=== PATIENT | female | born 1955 | race Caucasian/White ===

== ENCOUNTER → 2024-06-23 | Outpatient (CLI) | payer MEDICARE, SELFPAY ==
[2024-06-23 10:29] LABS: Absolute Lymphocyte Count 2.41 X10^3/uL (0.83-4.51); Absolute Neutrophil Count 6.1 X10^3/uL (2.0-7.7); Basophil% 1.1 % (0-1); Eosinophil# 0.33 X10^3/uL; Eosinophils% 3.5 % (0-5); Hematocrit 40.7 % (37-47); Hemoglobin 12.9 g/dL (12.0-15.0); Lymphocyte # 2.41 X10^3/ul (0.83-4.51); Lymphocyte % 25.4 % (19-41); Mean Corp Hgb Conc 31.7 g/dL (32-36); Mean Corpuscular Hgb 30.7 pg (27.0-32.0); Mean Corpuscular Volume 96.9 fL (81-99); Mean Platelet Vol. 10.9 fl (6.2-12.0); Monocyte# 0.54 X10^3/uL; Monocyte% 5.7 % (0-10); NRBC Flagged by Analyzer 0 % (0-5); Neutrophil % 64.1 % (47-70); Platelet Count 281 K/mm3 (150-450); RBC Distribution Width CV 12.5 % (11.6-14.6); RBC Distribution Width SD 44.5 fl (35.1-43.9); White Blood Count 9.5 K/mm3 (4.4-11.0)
[2024-06-23 10:58] LABS: PTHIN 19 pg/mL (11-61)
[2024-06-23 11:12] LABS: ALB/GLOB Ratio 1.2 RATIO (0.9-2.4); AST(SGOT) 25 U/L (<=31); Alanine Aminotransfer ALT/SGPT 18 U/L (<=34); Alkaline Phosphatase 74 U/L (35-104); Anion Gap 13 (5-15); BUN 20 mg/dL (4-19); BUN/Creat Ratio 12.5 RATIO (10-20); Calcium,Total 9.7 mg/dL (7.6-11.0); Carbon Dioxide 30.2 mmol/L (21.0-32.0); Chloride 100 mmol/L (98-108); Creatinine, Serum 1.63 mg/dL (0.70-1.20); EST Glomerular Filtration Rate 34 (>60); Globulin 3.4 g/dL (2.2-4.2); Glucose 112 mg/dL (70-99); Magnesium 1.4 mg/dL (1.5-2.2); Phosphorus 3.5 mg/dL (2.7-4.5); Potassium 4.1 mmol/L (3.3-5.1); Protein, Total 7.4 g/dL (5.9-8.4); Sodium Level 144 mmol/L (133-145); Total Bilirubin 0.48 mg/dL (0.00-1.30)
== END | disposition home or self-care (01) ==
LOC: MTLAB 09:23
PROVIDERS: PCP Family Medicine; Referring Provider Family Medicine; Visit Provider Family Medicine
DX: I12.9 Hypertensive chronic kidney disease with stage 1 through stage 4 chronic kidney disease, or unspecified chronic kidney disease (principal); N18.4 Chronic kidney disease, stage 4 (severe); J44.9 Chronic obstructive pulmonary disease, unspecified; E20.9 Hypoparathyroidism, unspecified; E03.9 Hypothyroidism, unspecified
CPT/HCPCS: 36415; 80053; 82306; 83735; 83970; 84100; 84443; 85025

== ENCOUNTER → 2025-01-02 | Outpatient (CLI) | payer MEDICARE, SELFPAY ==
--- NOTE | 2025-01-02 15:00 | RAD_ITS ---
PROCEDURE: FOOT MIN 3 VIEWS 01/02/2025 REASON FOR EXAM: PAIN TECHNIQUE: Procedure Code: RADFO Modality: DX Procedure: FOOT MIN 3 VIEWS Laterality: Right COMPARISON: None FINDINGS: Bones: No demonstrated fracture or suspicious osseous lesion. The PIP region of the 2nd toe is not visualized due to a toe ring Joints: Mild narrowing in the distal joints Soft tissues: No suspicious soft tissue swelling or foreign body Other: Calcaneal heel spurs RAD/Foot min 3 Views IMPRESSION: Mild, age consistent changes, no acute findings Reading Location: [id number]
--- NOTE | 2025-01-02 15:00 | RAD_ITS ---
PROCEDURE: KNEE 4 OR MORE VIEWS 01/02/2025 REASON FOR EXAM: PAIN TECHNIQUE: Procedure Code: RADKN Modality: DX Procedure: KNEE 4 OR MORE VIEWS Laterality: Right COMPARISON: None FINDINGS: There is no evidence of fracture or dislocation. There is moderate arthritis of the patellofemoral joint. There is mild arthritis of the medial joint space compartment of the knee. 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 There is no knee joint effusion. The periarticular soft tissues are normal. 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 Other findings as noted. Reading Location: [place] [id number]
== END | disposition home or self-care (01) ==
LOC: MTRAD 16:22
PROVIDERS: PCP Family Medicine; Referring Provider Family Medicine; Visit Provider Family Medicine
DX: S99.921A Unspecified injury of right foot, initial encounter (principal); X58.XXXA Exposure to other specified factors, initial encounter; M25.361 Other instability, right knee
CPT/HCPCS: 73564; 73630

== ENCOUNTER 2025-01-09 14:58 | Inpatient (IN) | payer MEDICARE, SELFPAY ==
[2025-01-09] VITALS (31 sets, daily range): BP systolic 132–185; BP diastolic 57–165; PULSE 50–74; RESP 12–30; TEMP 36.2–37; O2SAT 90–98; BMI 43.9; BMI 42.9
--- NOTE | 2025-01-09 14:30 | MRI_ITS ---
PROCEDURE: MRI/Brain without Contrast
--- NOTE | 2025-01-09 15:08 | CT_ITS ---
PROCEDURE: CT/STROKE CTA Head AND Neck W/Con
--- NOTE | 2025-01-09 15:08 | CT_ITS ---
PROCEDURE: CT/STROKE Brain/Head without Cont
--- NOTE | 2025-01-09 15:08 | ED.VIS.STROK ---
HPI History of Present Illness Chief Complaint: Stroke Alert [facility] Home Medications ?Medication ?Instructions ?Recorded ?Last Taken ?Type atenolol 100 mg tablet 100 mg PO DAILY 01/09/25 Unknown History atorvastatin 40 mg tablet 40 mg PO DAILY 01/09/25 Unknown History levothyroxine 137 mcg tablet 137 mcg PO DAILY 01/09/25 Unknown History lisinopril 5 mg tablet 2.5 mg PO DAILY 01/09/25 Unknown History semaglutide 1 mg/dose (4 mg/3 mL) 1.3333 mg subcut QWEEK 01/09/25 Unknown History subcutaneous pen injector (Ozempic) Allergy/AdvReac Type Severity Reaction Status Date / Time No Known Allergies Allergy Verified 01/09/25 15:01 Social History Smoking Status: Never smoker ROS ROS ED Review of Systems ROS Unobtainable: other Details: limited due to aphasia Eyes Eyes: Denies change in vision Cardiovascular Cardiovascular: Denies chest pain or palpitations Respiratory/Chest Respiratory/Chest: Denies dyspnea Musculoskeletal Musculoskeletal: Reports other Details: R knee pain due to fall 2 wks ago Neurologic Neurologic: Reports as per HPI, abnormal speech, headache(s), paresthesias RUE and RLE and weakness; Denies convulsions EXAM Physical Exam Const Vital Signs: 01/09/25 15:00 01/09/25 15:02 01/09/25 15:12 Temperature 98.6 F Temperature Source Oral Pulse Rate 57 L 50 L Respiratory Rate 16 16 Blood Pressure 160/57 H 160/57 H Blood Pressure Mean 91 91 Blood Pressure Source Blood Pressure Position Blood Pressure Location Pulse Ox 98 98 Oxygen Delivery Method Room Air Room Air Room Air 01/09/25 15:29 01/09/25 15:30 01/09/25 15:41 Temperature Temperature Source Pulse Rate 71 65 Respiratory Rate 18 17 Blood Pressure 185/165 H 160/73 H 160/73 H Blood Pressure Mean 171 102 102 Blood Pressure Source Monitor Blood Pressure Position Supine Blood Pressure Location Right Arm Pulse Ox 93 98 Oxygen Delivery Method Room Air 01/09/25 15:42 01/09/25 15:44 01/09/25 15:44 Temperature Temperature Source Pulse Rate 69 Respiratory Rate Blood Pressure 175/87 H 175/87 H 160/73 H Blood Pressure Mean 116 102 Blood Pressure Source Blood Pressure Position Blood Pressure Location Pulse Ox Oxygen Delivery Method 01/09/25 15:49 01/09/25 15:56 01/09/25 16:11 Temperature 98.6 F Temperature Source Oral Pulse Rate 65 Respiratory Rate 17 Blood Pressure 181/85 H 169/76 H Blood Pressure Mean 117 107 Blood Pressure Source Monitor Monitor Blood Pressure Position Supine Semi-Fowlers Blood Pressure Location Right Arm Right Arm Pulse Ox 96 Oxygen Delivery Method Room Air Room Air 01/09/25 16:26 Temperature Temperature Source Pulse Rate 65 Respiratory Rate 17 Blood Pressure 160/80 H Blood Pressure Mean 106 Blood Pressure Source Monitor Blood Pressure Position Semi-Fowlers Blood Pressure Location Right Arm Pulse Ox 94 Oxygen Delivery Method Room Air Positive well nourished, well developed and obese General Appearance ED: well developed and NAD Nutritional Appearance: obese HEENT Reports moist mucous membranes normocephalic and atraumatic Eyes PERRL and EOMs intact bilaterally Neck full ROM and supple Resp normal respiratory effort and clear to auscultation bilaterally Cardio regular rate, regular rhythm and no murmurs GI non-tender and non-distended Auscultation: normoactive bowel sounds Palpation: soft Back/Spine no CVA tenderness General Back: other FROM Extremity normal to inspection General Extremety ED: Negative for edema, pulses abnormal or tenderness General Extremity: Negative for edema or pulses abnormal Neuro Neuro Narrative: Expressive aphasia some dysarthria, significant weakness in the right arm none on the left, and decrease sensation throughout the right side. Sensorium / Orientation: awake and alert Skin no rashes or lesions noted and no wounds MDM MDM MDM Narrative Medical decision making narrative: Triage stroke alert was called, and I responded immediately, seeing the patient in triage. She is extremely weak in her right arm. She has sensory deficits throughout the right side, including the lower face, but no facial droop or problems with visual field, direct shock, or movements. She has significant difficulty with speech: she can produce some words but has expressive aphasia and some dysarthria. I escorted the patient to and from CT. On my interpretation, there is no hemorrhage on the plain CT. I discussed this with Radiology (Dr. Holland), who agrees there is no hemorrhage. Prior to obtaining the CT angiography with contrast I did discuss with patient and family concerning the risk of giving IV contrast in a patient with known chronic kidney disease who was not on dialysis, but I think the benefits outweigh the potential risks given her neurologic deficits and family was in agreement with that prior to doing the CTA. I then re-examined the patient, performing a more thorough NIHSS at the bedside with family. She has profound right-sided deficits, profound expressive aphasia, and right-sided hemianopia in both eyes. Her NIHSS is 16, suggesting a severe insult. As I discussed with the family, she is within the window for thrombolytics and has no contraindications, and I recommend administering them. We discussed the relatively small risk of hemorrhage (approximately 6%). The family agreed, understanding that migraine with neurologic symptoms is also in the differential. Thrombolytics were ordered with a maximum dose of 25 milligrams TNK, and TNK was administered. The CT angiography of the head and neck shows no LVO and no aneurysm. The patient met all criteria for thrombolytics and was within the window (see attached sheet indicating no contraindications). Initially, stroke neurology (Dr. Mason) thought this presentation was more likely to be a mimic. As I had discussed with the family before we decided together to proceed with thrombolytics, that was a consideration; however, in my judgment, the risk of chronic, prolonged deficits from an acute stroke was greater, and current studies support administering thrombolytics even if a mimic is possible, given a low reported risk of hemorrhage. The family understood this and was amenable to proceeding with thrombolytics, which were given. I discussed the case at length with stroke neurology and then conferred with the hospitalist for admission and further workup. We will continue to monitor the patient closely. On my reexamination about 30 minutes after thrombolytics given, she is speaking a little better and able to lift her right arm up in the air slightly although still little weak. She denies a headache and feels like she is improving a little. A postthrombolytic pressure was high 191 systolic with a heart rate of 65 for which labetalol was given after I discussed with nursing. Lab Data Attestation: I reviewed the patient's lab results. Labs: Laboratory Results - last 24 hr 01/09/25 01/09/25 15:05 15:58 WBC 12.4 H RBC 4.55 Hgb 14.2 Hct 42.7 MCV 93.8 MCH 31.2 MCHC 33.3 RDW Std Deviation 43.0 RDW Coeff of Michael 12.5 Plt Count 246 MPV 10.6 Immature Gran % (Auto) 0.200 Neut % (Auto) 66.4 Lymph % (Auto) 22.8 [place] % (Auto) 7.0 Eos % (Auto) 2.8 Baso % (Auto) 0.8 Absolute Neuts (auto) 8.2 H Absolute Lymphs (auto) 2.82 Nucleated RBC % 0 PT 13.6 INR 1.0 APTT 26.8 Sodium Cancelled 139 Potassium Cancelled 4.4 Chloride Cancelled 98 Carbon Dioxide Cancelled 33.1 H Anion Gap Cancelled 9 BUN Cancelled 24 H Creatinine Cancelled 1.36 H Estim Creat Clear Calc 53.11 Est GFR (MDRD) Non-Af Cancelled 42 L BUN/Creatinine Ratio Cancelled 17.4 Glucose Cancelled 98 Calcium Cancelled 9.7 Troponin T High Sens 18 H Radiography Diagnostic Testing: Clinical Impression(s) from Imaging Studies Brain CT 01/09/25 15:08 IMPRESSION: 1. No acute intracranial abnormality. Stroke Alert: No acute intracranial abnormality The critical findings in the findings and impression above were relayed directly by me by telephone to Karl Greene on 01/09/2025 at 3:24 pm with readback verification. Reading Location: [facility] Head/Neck CTA 01/09/25 15:08 IMPRESSION: 1. No large vessel occlusion. 2. No aneurysm or stenosis. Reading Location: [facility] Rhythm Strip Rhythm Strip: Sinus Rhythm Rate: 64 Ectopy: None EKG Initial EKG: Attestation: I personally reviewed and interpreted this EKG as follows: Interpretation: Sinus Rhythm and No Acute Injury Pattern Comments: Nml axis & intervals; nml EKG Management Discussion w/another healthcare provider: Hospitalist, School Physical Therapist (stroke neuro), Radiologist and Pharmacist (via staff) Discharge Plan Dx/Rx/DC Orders Clinical Impression: Expressive aphasia, Acute right hemiparesis, Acute headache, CKD (chronic kidney disease) Disposition Disposition: Acute Care Hospital [facility] NIHSS NIHSS 1a. Level of Consciousness: 0 - Alert; keenly responsive 1b. LOC Questions: 2 - Answers NEITHER question correctly 1c. LOC Commands: 0 - Performs BOTH tasks correctly 2. Best Gaze: 0 - Normal 3. Visual: 2 - Complete hemianopia 4. Facial Palsy: 0 - Normal symmetrical movements 5a. Left Arm: 0 - No drift; arm holds 90 (or 45) degrees for full 10 seconds 5b. Right Arm: 2 - Some effort against gravity; 6a. Left Le - Some effort against gravity; 6b. Right Le - No effort against gravity; leg falls to bed immediately 7. Limb Ataxia: 0 - Absent 8. Sensory: 2 - Severe to total sensory loss; 9. Best Language: 2 - Severe aphasia; 10. Dysarthria: 1 = Srit-fa-hfzjktru dysarthria; 11. Extinction and Inattention: 0 - No abnormality Total: 16 Stroke Questions Stroke Team Activated: Yes Reviewed Inclusion/Exclusion criteria: Yes IV Thrombolytic Administered: Yes No contraindications from thrombolytic administration: Yes Informed the patient and/or family of all associated risks, benefits, & alternatives to IV Thrombolytic Therapy. Patient and/or family voluntarily consent to the administration of IV Thrombolytic Therapy: Yes (son, [id number]) Reasons for Thrombolytic Delay Care team unable to determine eligibility: Yes -: CT imaging was delayed because patient was telling CT techs and fragmented aphasic speech that she may have a significant allergy to IVP dye. After discussing this with the patient as I went to the bedside, she states that she blacked out and lost her hair at age 17. I think the benefits of the diet at this time outweigh the risks patient was amenable to that and that was then given. After getting patient back from CT and discussing the fact that she is a thrombolytic candidate for suspected acute stroke, discussing risks and benefits and going through the thrombolytic checklist with patient and 2 family members, and consenting them for thrombolytic therapy after discussing risk, benefits, and alternatives, this was ordered and nurses were advised to give all before stroke neurology was on to evaluate. This also included discussion of possible mimics as etiology of her symptoms including migraine headache. Family understanding of this, and also understanding that we are treating worst-case scenarios, and the fact that she has profound unilateral/asymmetric deficits that could become permanent if untreated. However, there was additional delay because upon stroke neurology discussing with nursing, they held off on giving thrombolytics until I then further discussed with nursing.
[2025-01-09 15:14] LABS: Hematocrit 42.7 % (37-47); Hemoglobin 14.2 g/dL (12.0-15.0); Immature Granulocytes Count 0.030 X10^3/uL (0.0-0.0); Mean Corp Hgb Conc 33.3 g/dL (32-36); Mean Corpuscular Volume 93.8 fL (81-99); Mean Platelet Vol. 10.6 fl (6.2-12.0); NRBC Flagged by Analyzer 0 % (0-5); Platelet Count 246 K/mm3 (150-450); RBC Distribution Width CV 12.5 % (11.6-14.6); RBC Distribution Width SD 43.0 fl (35.1-43.9); Red Blood Count 4.55 M/mm3 (4.2-5.4); White Blood Count 12.4 K/mm3 (4.4-11.0)
[2025-01-09 15:28] LABS: Prothrombin Time (Protime)PT. 13.6 SECONDS (11.7-14.9)
[2025-01-09 15:42] LABS: Partial Thromboplast Time 26.8 Seconds (24.1-36.2)
[2025-01-09] MEDS: Tenecteplase 25 MG in Syringe 1 EACH 3600 MG IV (15:44)
[2025-01-09] MEDS: 0.9% Saline Lock 10 ML Syringe IV ×2 (15:44→15:45)
[2025-01-09 15:52] LABS: Troponin T High Sensitivity 18 ng/L (<=14)
--- NOTE | 2025-01-09 16:10 | ED.RN ---
1506 initial call to [facility] made by this RN 1522 Pt arrives back to ER room, [facility] called to let them know patient is back in room. 1525 Dr. Greene at bedside to discuss TNK, giving risks and benefits of TNK. Family stated they trusted what Dr. Greene would recommend. 1531 This RN called [facility] about delay in Neurologist beaming in. THis RN told [facility] stat line that Dr. Greene had ordered TNK and administration was imminent. [address] [facility] [address] Miller Beams in and begins assesment 1535 TNK delivered by pharmacy. [address] miller on doing NIH assessment. 1543 Dr Greene asked this RN if TNK was given yet, this RN had stated that it hadnt because I was waiting for [facility] dr. Dr. Greene stated do not wait, give TNK. 1544 TNK administered.
[2025-01-09] MEDS: 0.9% Normal Saline (1000mL) 1,000 ML 100 ML IV (16:24)
--- NOTE | 2025-01-09 16:29 | PCM.HP.STD ---
HPI - General General Date of Admission: 01/09/25 Date of Service: 01/09/25 Chief Complaint: Strokelike symptoms HPI Narrative CARMEN TREJO, is a 69 F who presented to [facility] ED on 01/09/2025 with strokelike symptoms. Medical history significant for class III obesity, hypertension, hyperlipidemia, type 2 diabetes mellitus and hypothyroidism. She lives at home with her son, and her son and [id number] accompanied her to the ED today. Patient presented to the ED as a stroke alert. In the ED she was noted to have extreme weakness in her right arm, sensory deficits of the right side, significant difficulty with speech and dysarthria noted. NIHSS score of [address] brain and CTA head/neck were unremarkable. ED physician discussed with family and they opted for patient to receive tenecteplase. Tenecteplase was given at 1330. Was noted to have some improvement in her symptoms shortly afterwards with improving NIH score. Hospitalist was then contacted for admission. I saw the patient at bedside in the ED, son and [id number] were present. Patient was laying back in bed and in no acute distress. She was alert and able to make appropriate eye contact with me. However she was alert only to person and not place or time. She could not tell me where she was or what the month of the year was. She did have dysarthria noted and was not answering any other questions appropriately for me. She was also looking at her son and [id number] for help with answering questions. Son notes that patient had a mechanical fall at home approximately 2 weeks ago with some right knee pain noted. Imaging at that time was negative. She apparently was recently diagnosed with new onset migraines and has been taking a triptan medication as needed for this. She was in her normal state of health this morning, was up doing the dishes and cleaning the house. Will be admitted for further management. [facility] Home Medications ?Medication ?Instructions ?Recorded ?Last Taken ?Type atenolol 100 mg tablet 100 mg PO DAILY 01/09/25 Unknown History atorvastatin 40 mg tablet 40 mg PO DAILY 01/09/25 Unknown History levothyroxine 137 mcg tablet 137 mcg PO DAILY 01/09/25 Unknown History lisinopril 5 mg tablet 2.5 mg PO DAILY 01/09/25 Unknown History semaglutide 1 mg/dose (4 mg/3 mL) 1.3333 mg subcut QWEEK 01/09/25 Unknown History subcutaneous pen injector (Ozempic) Allergy/AdvReac Type Severity Reaction Status Date / Time No Known Allergies Allergy Verified 01/09/25 15:01 Social History Smoking Status: Never smoker ROS Review of Systems ROS Unobtainable: due to mental status Vital Signs Vital Signs Vital Signs: 01/09/25 15:00 01/09/25 15:02 01/09/25 15:12 Temperature 98.6 F Temperature Source Oral Pulse Rate 57 L 50 L Respiratory Rate 16 16 Blood Pressure 160/57 H 160/57 H Blood Pressure Mean 91 91 Blood Pressure Source Blood Pressure Position Blood Pressure Location Pulse Ox 98 98 Oxygen Delivery Method Room Air Room Air Room Air 01/09/25 15:29 01/09/25 15:30 01/09/25 15:41 Temperature Temperature Source Pulse Rate 71 65 Respiratory Rate 18 17 Blood Pressure 185/165 H 160/73 H 160/73 H Blood Pressure Mean 171 102 102 Blood Pressure Source Monitor Blood Pressure Position Supine Blood Pressure Location Right Arm Pulse Ox 93 98 Oxygen Delivery Method Room Air 01/09/25 15:42 01/09/25 15:44 01/09/25 15:44 Temperature Temperature Source Pulse Rate 69 Respiratory Rate Blood Pressure 175/87 H 175/87 H 160/73 H Blood Pressure Mean 116 102 Blood Pressure Source Blood Pressure Position Blood Pressure Location Pulse Ox Oxygen Delivery Method 01/09/25 15:49 01/09/25 15:56 01/09/25 16:11 Temperature 98.6 F Temperature Source Oral Pulse Rate 65 Respiratory Rate 17 Blood Pressure 181/85 H 169/76 H Blood Pressure Mean 117 107 Blood Pressure Source Monitor Monitor Blood Pressure Position Supine Semi-Fowlers Blood Pressure Location Right Arm Right Arm Pulse Ox 96 Oxygen Delivery Method Room Air Room Air Weight Weight: 123.5 kg Body Mass Index (BMI) 43.9 Physical Exam Const alert and no apparent distress Constitutional Narrative: Elderly female, class III obesity, mildly fatigued appearing, alert and making appropriate eye contact but not answering answering any questions appropriately for me, alert and oriented to person but not place or time, otherwise sitting back fairly comfortably in bed and in no acute distress. General Appearance: cooperative and comfortable Orientation / Consciousness: confused HEENT normocephalic, head/scalp atraumatic, hearing grossly normal bilaterally, nasal mucous membranes and turbinates normal and moist oral mucous membranes Eyes PERRL, EOMs intact bilaterally and conjunctivae normal Neck full ROM Chest inspection of chest normal Resp normal respiratory effort, normal air movement, no use of accessory muscles and clear to auscultation bilaterally Cardio regular rate, regular rhythm, no murmurs and peripheral pulses 2+ throughout GI normal to inspection, nondistended, normoactive bowel sounds, soft to palpation, non-tender and non-distended Back/Spine normal ROM Extremity normal to inspection and no pedal edema Skin no rashes or lesions noted Neuro moves all extremities Neuro Narrative: Significant dysarthria noted. Alert and oriented to person only. +4/5 strength in right lower extremity. Finger-nose test abnormal. Results Lab / Micro Data 01/09/25 15:05 01/09/25 15:58 Labs: Laboratory Results - last 24 hr 01/09/25 15:05: WBC 12.4 H, RBC 4.55, Hgb 14.2, Hct 42.7, MCV 93.8, MCH 31.2, MCHC 33.3, RDW Std Deviation 43.0, RDW Coeff of Michael 12.5, Plt Count 246, MPV 10.6, Immature Gran % (Auto) 0.200, Neut % (Auto) 66.4, Lymph % (Auto) 22.8, [place] % (Auto) 7.0, Eos % (Auto) 2.8, Baso % (Auto) 0.8, Absolute Neuts (auto) 8.2 H, Absolute Lymphs (auto) 2.82, Nucleated RBC % 0, PT 13.6, INR 1.0, APTT 26.8, Sodium Cancelled, Potassium Cancelled, Chloride Cancelled, Carbon Dioxide Cancelled, Anion Gap Cancelled, BUN Cancelled, Creatinine Cancelled, Est GFR (MDRD) Non-Af Cancelled, BUN/Creatinine Ratio Cancelled, Glucose Cancelled, Calcium Cancelled, Troponin T High Sens 18 H Rhythm Strip Rhythm Strip: Sinus Rhythm Rate: 64 Ectopy: None Imaging Radiology Impression Brain CT 01/09/25 15:08 IMPRESSION: 1. No acute intracranial abnormality. Stroke Alert: No acute intracranial abnormality The critical findings in the findings and impression above were relayed directly by me by telephone to Karl Greene on 01/09/2025 at 3:24 pm with readback verification. Reading Location: [facility] Head/Neck CTA 01/09/25 15:08 IMPRESSION: 1. No large vessel occlusion. 2. No aneurysm or stenosis. Reading Location: [facility] Assessment & Plan Assessment/Plan (1) Stroke-like symptoms: PLAN: Plan Patient is a 69-year-old female who presented to [facility] ED on 01/09/2025 with strokelike symptoms. 1. Strokelike symptoms s/p TNK administration ? Admit under inpatient status to ICU. Neurology consulted. Presented with severe right-sided weakness and significant dysarthria. NIH score of 16. CT brain and CTA head/neck unremarkable. ED physician discussed with family and they proceeded with tenecteplase administration at 1330. Mild improvement in NIH score post TNK administration. Orders placed per stroke with TNK administration order set. Will be on bedrest for 24 hours and then have MRI brain without contrast done tomorrow afternoon. PT/OT/case management consulted. Lipid panel ordered. Okay to continue home atorvastatin. Home atenolol and lisinopril on hold for permissive hypertension. 2. Recent diagnosis of migraines ? Family notes recent diagnosis of migraines a few weeks ago. She is apparently been taking a triptan medication as needed for this. No prior history of migraines until few weeks ago that family notes. Unclear if this may be contributing to her picture above. Appreciate neurology recommendations. 3. CKD stage IIIb ? Creatinine 1.36 on admit, stable at baseline. Monitor daily BMP and urine output. 4. Hypertension/hyperlipidemia ? Hypertensive to the 160s and 170s systolic in the ED. Holding home lisinopril and atenolol for permissive hypertension. Continue home atorvastatin. 5. Type 2 diabetes mellitus ? Blood glucose 98 on admit. A1c 6.4%. Only on semaglutide at home for this. Will treat with sliding scale insulin with meals while inpatient. 6. Hypothyroidism with elevated TSH ? TSH 8.68 on admit. Free T4 ordered. Will continue home Synthroid at this time. Recommend repeat TSH and free T4 in 4 to 6 weeks and will defer uptitration of Synthroid to PCP. 7. Class III obesity ? BMI 42 on admit. Complicates hospital course and care. DVT prophylaxis: SCDs CODE STATUS: DNR-CCA, DNI. Discussed with patient's son and [id number] at bedside and they confirmed that patient has previously clearly expressed her wishes to be a DNR CCA, DNI code status. Expected disposition: TBD Total clinical time spent by myself addressing the patient's medical issues, reviewing all the data, and collaborating with patient's care team: 76 minutes. Charges/Coding Visit Charges Inpatient E&M: 65467 Init Hosp L3
--- NOTE | 2025-01-09 16:35 | ECHOCS_ITS ---
Reason For Study ECHO/Echo Complete W/ Contrast
[2025-01-09 16:40] LABS: Anion Gap 9 (5-15); BUN 24 mg/dL (4-19); BUN/Creat Ratio 17.4 RATIO (10-20); Calcium,Total 9.7 mg/dL (7.6-11.0); Carbon Dioxide 33.1 mmol/L (21.0-32.0); Chloride 98 mmol/L (98-108); Estimated Creatinine Clearance 53.11 ml/min (50-250); Glucose 98 mg/dL (70-99); Potassium 4.4 mmol/L (3.3-5.1)
[2025-01-09 17:30] LABS: Troponin T High Sens 2 HR 18 ng/L (<=14)
[2025-01-09 17:49] LABS: Cholesterol 120 mg/dL (<=200); Low Density Lipoprotein Calc. 43 mg/dL; Triglycerides 90 mg/dL; Very Low Density Lipoprotein 18 mg/dL (5-40); cholesterol:hdl ratio screen 2.00
--- NOTE | 2025-01-09 23:29 | CPS ---
PT SET UP ON SL MACHINE CPAP 16 WITH 2 L/M BLEED
[2025-01-10] VITALS (32 sets, daily range): BP systolic 116–174; BP diastolic 20–96; PULSE 55–71; RESP 12–20; TEMP 36.1–36.4; O2SAT 91–100; BMI 42.9; BMI 42.8
[2025-01-10] MEDS: fentaNYL 100 MCG/2 ML Ampul 25 MCG IV (00:52)
[2025-01-10] MEDS: 0.9% Normal Saline (1000mL) 1,000 ML 100 ML IV ×3 (01:44→18:53)
[2025-01-10 03:49] LABS: Hematocrit 40.1 % (37-47); Hemoglobin 13.1 g/dL (12.0-15.0); Mean Corp Hgb Conc 32.7 g/dL (32-36); Mean Corpuscular Volume 94.6 fL (81-99); Mean Platelet Vol. 10.6 fl (6.2-12.0); Platelet Count 227 K/mm3 (150-450); RBC Distribution Width CV 12.7 % (11.6-14.6); RBC Distribution Width SD 43.8 fl (35.1-43.9); Red Blood Count 4.24 M/mm3 (4.2-5.4); White Blood Count 10.8 K/mm3 (4.4-11.0)
--- NOTE | 2025-01-10 04:04 | PCM.HOSP.N ---
Hospitalist Note Patient with ongoing migraine symptoms, unchanged and stable s/p TNK. Currently NPO. Will defer migraine specific medications given her current CVA presentation. Given this is stable and unchanged will defer repeat CT head; however, if her headaches change or worsenen low threshold to obtain CT head stat given TNK. Will administer IV pain regimen judiciously.
[2025-01-10 04:08] LABS: Anion Gap 7 (5-15); BUN 22 mg/dL (4-19); BUN/Creat Ratio 14.9 RATIO (10-20); Calcium,Total 8.9 mg/dL (7.6-11.0); Carbon Dioxide 32.1 mmol/L (21.0-32.0); Chloride 101 mmol/L (98-108); Estimated Creatinine Clearance 49.15 ml/min (50-250); Glucose 114 mg/dL (70-99); Potassium 4.6 mmol/L (3.3-5.1)
--- NOTE | 2025-01-10 10:49 | CASEMGMT ---
Social Work SW?to room to meet with patient for initial transition planning/care coordination?assessment.?SW?introduced self and role at [facility].? Pt voices understanding and consents to?assessment.? Pt is A/Ox4 and answers all questions appropriately.?? Care providers, pharmacy, and demographics verified. PCP: Philip England Specialists: None Preferred Pharmacy: [facility] Insurance: [employer] Medicare Prescription Benefit:?Yes Living Will/HPOA:?Yes, pt's dgt Sandy Betts is HCPOA. Pt also states she has a living will. SW requested documents be brought in for scanning to the medical record LNOK: Son Juilano Mcdowell and daughter in law Carolina Mosher. Dgt Sandy Betts Living Arrangements: Pt moved from [place], [place] Four months ago to live with her son and daughter in law. Pt lives in a multi level home with multiple flights of stairs. Pt is independent with ADLS and she and DIL split IADL tasks. Pt's son works, however DIL does not work outside the home. Transportation:?Pt does not drive. Pt DIL provides needed transportation. DME: ?Cpap/Bipap from [employer], aresol machine. No other DME HHC/SNF: Pt has HHC previously when living in [place] after she has cancer. No previous SNF placement. PLAN: Pt is hopeful that she can return home with her son and DIL at time of discharge. SAUNDRA did update pt that SW/RNCM will follow up with pt after she has therapy to determine discharge needs. SAUNDRA educated pt to home health, outpt therapy and SNF/acute rehab. Pt agreeable to meet with SAUNDRA/RNCM tomorrow to confirm discharge plan. CHIDI Carlos
--- NOTE | 2025-01-10 11:04 | CASEMGMT ---
Social Work PHQ9 completed due to possible stroke. Pt with score of 12 indicating moderate depression. Pt states that her of 40 years 4 years ago. Pt indicates that she has been feeling down but not hopeless since this time and has had a loss of appetite and loss of interest over the last 4 years as well. Pt denies any SI. Pt is able to site that the 3 grandchildren that she now lives with helps bring some excitement to my life. Pt lived alone after her spouse for three and a half years, and recently moved in with her son and his family. Pt denies taking any medication for depression and has not spoke with a counselor. SW offered grief counseling resources and pt states she does not want to talk to a counselor as she does not want to cry anymore. SW and pt discussed working through grief and need to sometimes seek help from a counselor to get to a healthier emotional place after the loss of a loved one. SW educated pt to grief counseling options and encouraged pt to speak to PCP regarding medication if she felt she needed help with mood. SAUNDRA provided written counseling resources. CHIDI Carlos
--- NOTE | 2025-01-10 11:47 | CHAPLAIN ---
Type of Pastoral Visit _x__ Initial Visit ___ Follow-up Visit ___ On-call Visit ___ General Patient Visit ___ Spiritual Assessment ___ Family Conference ___ Bereavement ___ Rapid Response ___ Code Blue ___ Other (describe below) Pastoral Care Referral From _x__ Patient ___ Family ___ Nurse ___ Physician ___ Event Specialist ___ Water Purifier Operator ___ Other (describe below) Sacrament/Intervention _x__ Active listening ___ Anointing ___ Orthodoxy ___ Bereavement ___ Communion ___ Aline exploration ___ ___ Life review ___ Prayer ___ Reconciliation ___ Sacrament of Sick _x__ Supportive presence ___ Wedding ___ Other (describe below) Pastoral Comments patient is more concerned about finding her cell phone than she is in her health at time of the visit; assisted pt in looking for her phone; COPY HOLDER is also involved in the search; pt denies having needs or worries
--- NOTE | 2025-01-10 17:06 | PN.NEURO_ITS ---
Assessment and Plan: Neuro
--- NOTE | 2025-01-10 17:06 | NEURO.PNOTE ---
Assessment and Plan: Neuro Assessment/Plan Telestroke Attending Stroke Progress Note 69 y/o woman with h/o class III obesity, hypertension, hyperlipidemia, type 2 diabetes mellitus and hypothyroidism p/w weakness in her right arm, sensory deficits of the right side, significant difficulty with speech and dysarthria noted. NIHSS-[address] head- no acute intracranial process. CTA- no LVO. TNK administered. As per family, patient had a mechanical fall at home approximately 2 weeks ago with some right knee pain noted. Also got recently diagnosed with new onset migraines and has been taking a triptan medication as needed for this. Diagnosis: Concern for ischemic stroke Plan: Post TNK protocol. Follow up MRI brain and TTE. OT/PT/[employer]. No further use of triptans for migraine. I personally attended this patient and spent a total time of 35 minutes evaluating this patient including clinical assessment, review of chart, medical history imaging, and determining appropriate treatment and workup. Subject: Neurology Subjective No acute events overnight. She reports feeling better. EEG Results Procedure Details EEG Procedure Details: CARMEN TREJO is a 69 year old F with a past medical history of , who presents for evaluation of Electroencephalogram on DATE at TIME Objective Data Objective Data Vital Signs: Vital Signs Temp Pulse Resp BP Pulse Ox O2 Del Method O2 Flow Rate 97.4 F L 60 18 150/85 H 100 Nasal Cannula 2 01/10/25 15:15 01/10/25 15:15 01/10/25 15:15 01/10/25 15:15 01/10/25 15:15 01/10/25 15:15 01/10/25 15:15 FiO2 2 01/10/25 07:35 Oxygen Flow Rate (L/min) 2 Oxygen Delivery Method Nasal Cannula Weight: 120.5 kg Body Mass Index (BMI) 42.8 Intake & Output: Intake and Output for Last 24 Hours 01/08/25 01/09/25 01/10/25 23:59 23:59 23:59 Intake Total 1545.00 / 1545.00 Output Total 700 / 700 Balance 845.00 / 845.00 Lab / Micro Data 01/10/25 03:40 01/10/25 03:40 Labs: Laboratory Results - last 24 hr 01/09/25 15:05: Hemoglobin A1c 6.4 H 01/09/25 15:58: Triglycerides 90, Cholesterol 120, LDL Cholesterol, Calc 43, VLDL Cholesterol 18, HDL Cholesterol 60, Cholesterol/HDL Ratio 2.00, TSH 8.680 H 01/09/25 17:06: Troponin T Hi Sens 2 Hr 18 H 01/10/25 03:40: WBC 10.8, RBC 4.24, Hgb 13.1, Hct 40.1, MCV 94.6, MCH 30.9, MCHC 32.7, RDW Std Deviation 43.8, RDW Coeff of Michael 12.7, Plt Count 227, MPV 10.6, Sodium 141, Potassium 4.6, Chloride 101, Carbon Dioxide 32.1 H, Anion Gap 7, BUN 22 H, Creatinine 1.45 H, Estim Creat Clear Calc 49.15 L, Est GFR (MDRD) Non-Af 39 L, BUN/Creatinine Ratio 14.9, Glucose 114 H, Calcium 8.9 01/10/25 08:14: POC Glucose 79 01/10/25 10:56: POC Glucose 91 01/10/25 16:21: POC Glucose 80 Radiography Diagnostic Testing: Radiology Impression Echocardiogram 01/09/25 16:35 Interpretation Summary The study was technically difficult. The left ventricular ejection fraction is 65 %. Mild mitral valve annular calcification. Trivial mitral valve regurgitation. Aortic sclerosis, no stenosis. Bubble contrast suboptimal but appears negative for PFO/ASD. Ordering Physician: Odin Terrell Referring Physician: Philip England Performed By: Madelaine Joshua, RAMONA, RVT Rhythm Strip Rhythm Strip: Sinus Rhythm Rate: 64 Ectopy: None Physical Exam Narrative General: The patient appears nutritionally appropriate, well-groomed, and appears comfortable in no acute distress. Mental Status:? The patient?s mental status was normal including orientation.? Language was intact.? Cranial nerves:? Visual lance full, and extra-ocular motion was intact. Symmetric face. Motor: Normal strength in all extremities. Sensation: Intact to touch in all extremities.? Coordination:? Bilateral finger to nose was normal.? There was no dysmetria. Gait:? deferred. NIHSS NIHSS Nursing Documentation NIHSS Nursing Documentation: Thrombolytic: Vital Signs & NIHSS Start: 01/09/25 15:26 Text: Assess and document vital signs and NIHSS Status: Active within 15 minutes of tenecteplase bolus administration Freq: Q2H Protocol: Activity Type Activity Date Activity User E-sign Co-sign Detail Recorded Client Recorded Date Recorded By Document 01/10/25 13:35 DIAZ [id number] 01/10/25 15:22 DIAZ 01/10/25 13:35 Vital Signs [Temperature Protocol: VS] -Temperature (97.8 F-99.1 F) 97.2 F L -Temperature Source Temporal [Pulse] -Pulse Rate (60-100) 59 L -Pulse Location Monitor [Respirations] -Respiratory Rate (12-18) 16 -Respiratory rate source Monitor -Pulse Oximetry 99 -Oxygen Delivery Method Nasal Cannula -O2 L/MIN (L/min) 2 [Blood Pressure] -Blood Pressure (90/60-120/80) 150/75 H -Blood Pressure Mean (mm Hg) 100 -Source Monitor -Position Semi-Fowlers -Blood Pressure Location Left Forearm -Is the SBP > or = 180 No -Is the DBP > or = 105 No NIH Stroke Scale [NIHSS] A score of 0 is normal or asymptomatic . Total possible score is 42. Inpatient: RN or Physician to activate a stroke alert for onset of new stroke symptoms or with NIHSS increase >/= 3 points. Following change in neurological status, NIHSS will be performed per physician order or more frequently PRN. -1a. Level of Consciousness 0 - Alert; keenly responsive -1b. LOC Questions 0 - Answers BOTH questions correctly -1c. LOC Commands 0 - Performs BOTH tasks correctly -2. Best Gaze 0 - Normal -3. Visual 1 - Partial hemianopia -4. Facial Palsy 0 - Normal symmetrical movements -5a. Left Arm 0 - No drift; arm holds 90 ( or 45) degrees for full 10 seconds -5b. Right Arm 0 - No drift; arm holds 90 ( or 45) degrees for full 10 seconds -6a. Left Leg 0 - No drift; leg holds 30- degree position for full 5 seconds -6b. Right Leg 0 - No drift; leg holds 30- degree position for full 5 seconds -7. Limb Ataxia 0 - Absent -8. Sensory 0 - Normal; no sensory loss -9. Best Language 0 - No aphasia; normal -10. Dysarthria 1 = Mild-to- moderate dysarthria; -11. Extinction and Inattention 0 - No abnormality -Total 2 Query Text:A score of 0 is normal or asymptomatic. Total possible score is 42 . ED: Notify Physician for NIHSS increase by > / = 3 points. Inpatient: RN or Physician to activate a stroke alert for NIHSS increase of > / = 3 points. NIHSS 1a. Level of Consciousness: 0 - Alert; keenly responsive 1b. LOC Questions: 0 - Answers BOTH questions correctly 1c. LOC Commands: 0 - Performs BOTH tasks correctly 2. Best Gaze: 0 - Normal 3. Visual: 0 - No visual loss 4. Facial Palsy: 0 - Normal symmetrical movements 5a. Left Arm: 0 - No drift; arm holds 90 (or 45) degrees for full 10 seconds 5b. Right Arm: 0 - No drift; arm holds 90 (or 45) degrees for full 10 seconds 6a. Left Le - No drift; leg holds 30-degree position for full 5 seconds 6b. Right Le - No drift; leg holds 30-degree position for full 5 seconds 7. Limb Ataxia: 0 - Absent 8. Sensory: 0 - Normal; no sensory loss 9. Best Language: 0 - No aphasia; normal 10. Dysarthria: 0 - Normal 11. Extinction and Inattention: 0 - No abnormality Total: 0
--- NOTE | 2025-01-10 18:09 | PN.HOSP_ITS ---
Reason for Visit
--- NOTE | 2025-01-10 18:09 | PCM.PN.HOSP ---
Reason for Visit Chief Complaint: Strokelike symptoms Subjective Subjective Patient was seen and examined today, her MRI did not show a stroke. Patient's echocardiogram was unremarkable. I have placed the patient on an 81 mg aspirin and Lipitor, patient's LDL cholesterol is extremely low at 43. Objective Data Objective Data Vital Signs: Vital Signs Temp Pulse Resp BP Pulse Ox O2 Del Method O2 Flow Rate 97.4 F L 60 18 150/85 H 100 Nasal Cannula 2 01/10/25 15:15 01/10/25 15:15 01/10/25 15:15 01/10/25 15:15 01/10/25 15:15 01/10/25 15:15 01/10/25 15:15 FiO2 2 01/10/25 07:35 Oxygen Flow Rate (L/min) 2 Oxygen Delivery Method Nasal Cannula Weight: 120.5 kg Body Mass Index (BMI) 42.8 Intake & Output: Intake and Output for Last 24 Hours 01/08/25 01/09/25 01/10/25 23:59 23:59 23:59 Intake Total 1545.00 / 1545.00 Output Total 700 / 700 Balance 845.00 / 845.00 Lab / Micro Data 01/10/25 03:40 01/10/25 03:40 Labs: Laboratory Results - last 24 hr 01/10/25 03:40: WBC 10.8, RBC 4.24, Hgb 13.1, Hct 40.1, MCV 94.6, MCH 30.9, MCHC 32.7, RDW Std Deviation 43.8, RDW Coeff of Michael 12.7, Plt Count 227, MPV 10.6, Sodium 141, Potassium 4.6, Chloride 101, Carbon Dioxide 32.1 H, Anion Gap 7, BUN 22 H, Creatinine 1.45 H, Estim Creat Clear Calc 49.15 L, Est GFR (MDRD) Non-Af 39 L, BUN/Creatinine Ratio 14.9, Glucose 114 H, Calcium 8.9 01/10/25 08:14: POC Glucose 79 01/10/25 10:56: POC Glucose 91 01/10/25 16:21: POC Glucose 80 Radiography Diagnostic Testing: Radiology Impression Brain MRI 01/09/25 14:30 IMPRESSION: No acute intracranial abnormality. No MRI evidence of acute ischemia. No intracranial hemorrhage. Reading Location: [facility] Echocardiogram 01/09/25 16:35 Interpretation Summary The study was technically difficult. The left ventricular ejection fraction is 65 %. Mild mitral valve annular calcification. Trivial mitral valve regurgitation. Aortic sclerosis, no stenosis. Bubble contrast suboptimal but appears negative for PFO/ASD. Ordering Physician: Odin Terrell Referring Physician: Philip England Performed By: Madelaine Joshua, RAMONA, RVT Rhythm Strip Rhythm Strip: Sinus Rhythm Rate: 64 Ectopy: None Physical Exam Const alert, oriented x3 and no apparent distress Constitutional Narrative: Patient has class III obesity General Appearance: cooperative, well kempt and well developed Orientation / Consciousness: awake, oriented to person, oriented to place and oriented to time HEENT normocephalic, head/scalp atraumatic and moist oral mucous membranes Eyes PERRL, EOMs intact bilaterally and conjunctivae normal Neck supple, no JVD, thyroid normal and no carotid bruits General: trachea midline Resp normal respiratory effort, no retractions, no use of accessory muscles and clear to auscultation bilaterally Auscultation: Negative for rales, rhonchi or wheezes Cardio regular rate, regular rhythm, S1 normal heart sound, S2 normal heart sound, no murmurs, no rub and no gallops GI normal to inspection, nondistended, normoactive bowel sounds, soft to palpation, non-tender and non-distended Extremity no clubbing, cyanosis or edema Skin no rashes or lesions noted General Skin Exam: no breakdown Neuro oriented x3, CN's II-XII intact bilaterally, moves all extremities, no focal motor deficits and no sensory deficits noted Sensorium / Orientation: awake and alert Speech: speech normal Psych affect normal Assessment & Plan Assessment/Plan (1) Stroke-like symptoms: PLAN: Plan 1. Dysarthria with right-sided weakness-concerning for TIA versus complex migraine-patient will continue to see PT and OT, patient states that she has severe arthritis in her right knee and has trouble bearing weight on the right leg at times. Patient was placed on 81 mg aspirin daily as well as continuing her Lipitor 40 mg daily. #2 type 2 diabetes-blood sugars will be monitored, sliding scale insulin will be administered if indicated #3 hypothyroidism-I will order a T3 and T4 to check her levels. Patient is on Synthroid #4 essential hypertension-patient will remain on lisinopril and atenolol Total clinical time spent by myself addressing the patient's medical issues, reviewing all her data, and collaborating with patient's care team: 35-minute NIHSS NIHSS Nursing Documentation NIHSS Nursing Documentation: Thrombolytic: Vital Signs & NIHSS Start: 01/09/25 15:26 Text: Assess and document vital signs and NIHSS Status: Active within 15 minutes of tenecteplase bolus administration Freq: Q2H Protocol: Activity Type Activity Date Activity User E-sign Co-sign Detail Recorded Client Recorded Date Recorded By Document 01/10/25 13:35 [id number] 01/10/25 15:22 DIAZ 01/10/25 13:35 Vital Signs [Temperature Protocol: VS] -Temperature (97.8 F-99.1 F) 97.2 F L -Temperature Source Temporal [Pulse] -Pulse Rate (60-100) 59 L -Pulse Location Monitor [Respirations] -Respiratory Rate (12-18) 16 -Respiratory rate source Monitor -Pulse Oximetry 99 -Oxygen Delivery Method Nasal Cannula -O2 L/MIN (L/min) 2 [Blood Pressure] -Blood Pressure (90/60-120/80) 150/75 H -Blood Pressure Mean (mm Hg) 100 -Source Monitor -Position Semi-Fowlers -Blood Pressure Location Left Forearm -Is the SBP > or = 180 No -Is the DBP > or = 105 No NIH Stroke Scale [NIHSS] A score of 0 is normal or asymptomatic . Total possible score is 42. Inpatient: RN or Physician to activate a stroke alert for onset of new stroke symptoms or with NIHSS increase >/= 3 points. Following change in neurological status, NIHSS will be performed per physician order or more frequently PRN. -1a. Level of Consciousness 0 - Alert; keenly responsive -1b. LOC Questions 0 - Answers BOTH questions correctly -1c. LOC Commands 0 - Performs BOTH tasks correctly -2. Best Gaze 0 - Normal -3. Visual 1 - Partial hemianopia -4. Facial Palsy 0 - Normal symmetrical movements -5a. Left Arm 0 - No drift; arm holds 90 ( or 45) degrees for full 10 seconds -5b. Right Arm 0 - No drift; arm holds 90 ( or 45) degrees for full 10 seconds -6a. Left Leg 0 - No drift; leg holds 30- degree position for full 5 seconds -6b. Right Leg 0 - No drift; leg holds 30- degree position for full 5 seconds -7. Limb Ataxia 0 - Absent -8. Sensory 0 - Normal; no sensory loss -9. Best Language 0 - No aphasia; normal -10. Dysarthria 1 = Mild-to- moderate dysarthria; -11. Extinction and Inattention 0 - No abnormality -Total 2 Query Text:A score of 0 is normal or asymptomatic. Total possible score is 42 . ED: Notify Physician for NIHSS increase by > / = 3 points. Inpatient: RN or Physician to activate a stroke alert for NIHSS increase of > / = 3 points.
[2025-01-10] MEDS: Aspirin E.C. 81 MG Tablet PO (20:22)
[2025-01-11] VITALS (7 sets, daily range): BP systolic 115–142; BP diastolic 74–92; PULSE 58–67; RESP 16–19; TEMP 36.2–36.4; O2SAT 93–97; BMI 42.6
[2025-01-11] MEDS: 0.9% Normal Saline (1000mL) 1,000 ML 100 ML IV (04:16)
[2025-01-11 05:18] LABS: Free T3 1.2 pg/mL (2.18-3.98); T4 Total, Thyroxin 5.5 ug/dL (4.8-13.9)
[2025-01-11] MEDS: Aspirin E.C. 81 MG Tablet PO (08:29)
--- NOTE | 2025-01-11 14:21 | SP.MBSS_ITS ---
Modified Barium Swallow
--- NOTE | 2025-01-11 14:21 | ST.MBS ---
Modified Barium Swallow Patient Information Study Date: 01/11/25 Study Time: 13:40 Direct Billable Minutes: 81 Total Minutes procedure & reportin Diagnosis: Acute R hemiparesis G81.91; Stroke-like symptoms R29.90 Referring Physician: Ronnie Krishnamurthy Reason for Referral: Assess swallow function, assess risk for aspiration, and determine recommendations for least restrictive diet textures and compensatory strategies to improve swallowing safety. Medical History: Pt presented to [facility] ED 01/09/25 due to headache x4 days with extreme weakness in her right arm, sensory deficits of the right side, significant difficulty with speech and dysarthria noted on arrival. CT brain and CTA head/neck were unremarkable. Pt given tenectaplase w/ improving NIH score shortly after administration. Pt admitted to ICU for furhter management. Patient referred to per stroke protocol, and per EMR, patient failed dysphagia due to hx of thyroid surgery with patient indicating she has a holein her throat. BSE completed and recommended puree textures / thin liquids by tsp and MBSS during acute POC. Pt provided this DIRECTOR FIELD SERVICES additional hx. Pt reports hx of thyroid cancer s/p thyroidectomy and chemoradiation treatment at [facility] in [place], [place] ~25 years ago. PMH: class III obesity, hypertension, hyperlipidemia, type 2 diabetes mellitus, and hypothyroidism. Current Diet Ordered: Puree / Thin Dentition: Natural Teeth and Missing Teeth Mental Status: WNL (No apparent confusion during MBSS today. Some intermittent confusion during the acute stay.) Respiratory Status: Oxygenating on Room Air Penetration-Aspiration Scale Penetration-Aspiration Scale: OBJECTIVE ASSESSMENT OF SWALLOW FUNCTION (QUANTITATIVE ? PER TRIAL): PENETRATION / ASPIRATION SCALE (WELSH): 1 = does not enter airway 2 = enters airway/above vocal folds/ejected 3 = enters airway/above vocal folds/not ejected 4 = enters airway/contacts vocal folds/ejected 5 = enters airway/contacts vocal folds/not ejected 6 = enters airway/below vocal folds/ejected 7 = enters airway/below vocal folds/not ejected despite effort 8 = enters airway/below vocal folds/no effort VIDEOFLOROSCOPIC SCALE SCORE (WELSH): Grade I = aspiration of material that has penetrated into the laryngeal vestibule, intact cough reflex Grade II = aspiration < 10 % of the bolus, intact cough reflex Grade III = aspiration of < 10 % of the bolus, reduced cough reflex or aspiration of > 10 % of the bolus, intact cough reflex Grade IV = aspiration of > 10 % of the bolus, reduced cough reflex Penetration-Aspiration Scale Score Thin Liquid via teaspoon: Result: 1= does not enter airway Thin Liquid via teaspoon Trial 2: Result: 2= enter airway/above vocal folds/ejected Thin Liquid via large single sip: cup: Result: 2= enter airway/above vocal folds/ejected Pudding via teaspoon: Result: 1= does not enter airway Comment: Esophageal screen - Mild retention in the upper esophagus, minimal retention in the lower esophagus. 1/2 Cookie: Result: 1= does not enter airway Thin Liquid via single sip: straw: Result: 2= enter airway/above vocal folds/ejected Thin Liquid via sequential sips:straw: Result: 2= enter airway/above vocal folds/ejected Oral Phase Labial Seal: No Labial Escape Tongue Control During Bolus Hold: Posterior escape of less than half of bolus Bolus Preparation/Mastication: Slow prolonged chewing/mashing with complete recollection Bolus Transport/Lingual Motion: Delayed initiation of tongue motion Oral Residue: Residue collection on oral structures Pharyngeal Phase Initiation of Pharyngeal Swallow: Bolus head at posterior laryngeal surgace of epiglottis Soft Palate Elevation: Escape to nasopharynx Laryngeal Elevation: Comp. Superior move thyroid cart w/comp. apprx arytenoid cart-epig pet Anterior Hyoid Excursion: Partial anterior movement Epiglottic Movement: Complete inversion Laryngeal Vestibule Closure at Height of Swallow: Incomplete; narrow column of air/contrast in laryngeal vestibule Pharyngeal Stripping Wave: Present - diminished Pharyngoesophageal Segment Opening: Complete distension and complete duration; no obstruction of flow Tongue Base Retraction: Narrow column of contrast between tongue base & post. pharyngeal wall Pharyngeal Residue: Collection of residue within or on pharyngeal structures Esophageal Phase Esophageal Clearance: Esophageal retention Diagnosis/Impression Diagnosis: Mild oropharyngeal dysphagia R13.12 MBS Impressions: The oral phase is primarily marked by... -Minimal posterior loss of <1/4 thin liquid bolus to the posterior surface of the epiglottis prior to swallow onset. -Delayed tongue motion for A-P transport. -Mild oral residue of cookie, which mostly cleared w/ a second swallow. Pt reports severe xerostomia since chemoradiation treatment for thyroid cancer 25 years ago. The pharyngeal phase is primarily marked by... -Decreased pharyngeal motility d/t decreased TB retraction and pharyngeal stripping wave w/ retrograde flow of some residues in the nasopharynx during the swallow d/t decreased velopharyngeal closure. -Decreased anterior hyoid excursion; however, complete laryngeal elevation. Trace laryngeal penetration of thin liquids, which fully ejected from the laryngeal vestibule during the swallow. The esophageal phase is primarily marked by... -Mild retention in the upper esophagus w/ pudding. Recommendations Diet: Easy to Chew Textures (Patient Preference) and Thin Liquids Compensatory Strategies: Small Bites, Small Sips, Slow Rate, Multiple Swallows (Double swallows w/ bites/sips), Alternate bites/solids and sips/liquids, Sitting upright and Remain sitting upright for 30 minutes after PO intake Supervision: Distant Supervision Recommend Repeat Modified Barium Swallow: TBD Need for Skilled Speech Therapy Services: Yes Comment: -Train the patient in use of strategies to decrease risk for aspiration. -Ongoing assessment of diet tolerance of recommended textures. -Train the patient in strategies and products to manage xerostomia. -Train the patient in oropharyngeal exercise program to improve velopharyngeal closure, TB retraction, and pharyngeal stripping wave. Education Completed: 1. Described result of evaluation., 2. Pt understands evaluation & agrees with goals and treatment plan. and 7. Pt requires further education on strategies & risks. Status Active ST Patient: Active Contact Information [facility] Speech Therapy:: Debbie Sanders M.A. [facility]-DIRECTOR FIELD SERVICES Speech-Language Pathologist [facility] [address] [place] [address] [email or web address] [phone]
--- NOTE | 2025-01-11 16:16 | CASEMGMT ---
Discharge Planning A list of?SNF providers including quality and resource use data and consistent with the patient's preferred geographic region, medical needs, and insurance network was created in [employer] Guide.? This list was provided to the RN ANTELMO. Rosio Gallegos, Discharge Planning Asst
--- NOTE | 2025-01-11 16:19 | CASEMGMT ---
Therapy states to this RN CM that the pt is not safe returning home in her current condition. RN CM to the pt's room at this time. Pt states that she is agreeable to a short term SNF stay for rehab. Provided the pt with the list at this time (See DPA note). Encouraged the patient to select top three preferences for referrals. Patient states understanding. Informed the patient that care management will follow up tomorrow for top three preferences. Patient denies any further questions or concerns.
--- NOTE | 2025-01-11 18:20 | PN.HOSP_ITS ---
Reason for Visit
--- NOTE | 2025-01-11 18:20 | PCM.PN.HOSP ---
Reason for Visit Chief Complaint: Strokelike symptoms Subjective Subjective Patient was seen and examined today, I communicated with teleneurology via text today, they recommended that the patient stay on 81 mg aspirin and atorvastatin. 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 Patient was seen by speech therapy today and her diet was changed from pur?ed food. Objective Data Objective Data Vital Signs: Vital Signs Temp Pulse Resp BP Pulse Ox O2 Del Method O2 Flow Rate 97.2 F L 64 16 142/74 H 93 Room Air 95 01/11/25 08:50 01/11/25 12:00 01/11/25 08:50 01/11/25 08:50 01/11/25 08:50 01/11/25 10:00 01/11/25 17:38 FiO2 21 01/10/25 21:20 Oxygen Flow Rate (L/min) 95 Oxygen Delivery Method Room Air Weight: 119.8 kg Body Mass Index (BMI) 42.6 Intake & Output: Intake and Output for Last 24 Hours 01/09/25 01/10/25 01/11/25 23:59 23:59 23:59 Intake Total 2725.00 / 2725.00 1751.66 / 1751.66 Output Total 1000 / 1000 Balance 1725.00 / 1725.00 1751.66 / 1751.66 Lab / Micro Data 01/10/25 03:40 01/10/25 03:40 Labs: Laboratory Results - last 24 hr 01/10/25 20:34: POC Glucose 140 H 01/11/25 04:18: Thyroxine (T4) 5.5, Free T3 pg/dL 1.2 L 01/11/25 07:58: POC Glucose 78 01/11/25 12:05: POC Glucose 99 01/11/25 16:44: POC Glucose 105 Rhythm Strip Rhythm Strip: Sinus Rhythm Rate: 64 Ectopy: None Physical Exam Narrative alert, oriented x3 and no apparent distress Constitutional Narrative: Patient has class III obesity General Appearance: cooperative, well kempt and well developed Orientation / Consciousness: awake, oriented to person, oriented to place and oriented to time HEENT normocephalic, head/scalp atraumatic and moist oral mucous membranes Eyes PERRL, EOMs intact bilaterally and conjunctivae normal Neck supple, no JVD, thyroid normal and no carotid bruits General: trachea midline Resp normal respiratory effort, no retractions, no use of accessory muscles and clear to auscultation bilaterally Auscultation: Negative for rales, rhonchi or wheezes Cardio regular rate, regular rhythm, S1 normal heart sound, S2 normal heart sound, no murmurs, no rub and no gallops GI normal to inspection, nondistended, normoactive bowel sounds, soft to palpation, non-tender and non-distended Extremity no clubbing, cyanosis or edema Skin no rashes or lesions noted General Skin Exam: no breakdown Neuro oriented x3, CN's II-XII intact bilaterally, moves all extremities, no focal motor deficits and no sensory deficits noted Sensorium / Orientation: awake and alert Speech: speech normal Psych affect normal Assessment & Plan Assessment/Plan (1) Acute right hemiparesis: (2) Stroke-like symptoms: PLAN: Plan 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 Patient is on Synthroid #4 essential hypertension-patient will remain on lisinopril and atenolol Total clinical time spent by myself addressing the patient's medical issues, reviewing all her data, and collaborating with patient's care team: 35-minute Charges/Coding Visit Charges Inpatient E&M: 36565 Subs Hosp L2 NIHSS NIHSS Nursing Documentation NIHSS Nursing Documentation: Thrombolytic: Vital Signs & NIHSS Start: 01/09/25 15:26 Text: Assess and document vital signs and NIHSS Status: Complete within 15 minutes of tenecteplase bolus administration Freq: Q2H Protocol: Activity Type Activity Date Activity User E-sign Co-sign Detail Recorded Client Recorded Date Recorded By Document 01/10/25 17:00 DIAZ [id number] 01/10/25 19:46 DIAZ 01/10/25 17:00 Vital Signs [Pulse] -Pulse Rate (60-100) 64 -Pulse Location Monitor [Respirations] -Respiratory Rate (12-18) 17 -Respiratory rate source Monitor -Pulse Oximetry 95 -Oxygen Delivery Method Nasal Cannula -O2 L/MIN (L/min) 1 [Blood Pressure] -Blood Pressure (90/60-120/80) 141/96 H -Blood Pressure Mean (mm Hg) 111 -Source Monitor -Position Sitting -Blood Pressure Location Left Forearm -Is the SBP > or = 180 No -Is the DBP > or = 105 No NIH Stroke Scale [NIHSS] A score of 0 is normal or asymptomatic . Total possible score is 42. Inpatient: RN or Physician to activate a stroke alert for onset of new stroke symptoms or with NIHSS increase >/= 3 points. Following change in neurological status, NIHSS will be performed per physician order or more frequently PRN. -1a. Level of Consciousness 0 - Alert; keenly responsive -1b. LOC Questions 0 - Answers BOTH questions correctly -1c. LOC Commands 0 - Performs BOTH tasks correctly -2. Best Gaze 0 - Normal -3. Visual 1 - Partial hemianopia -4. Facial Palsy 0 - Normal symmetrical movements -5a. Left Arm 0 - No drift; arm holds 90 ( or 45) degrees for full 10 seconds -5b. Right Arm 0 - No drift; arm holds 90 ( or 45) degrees for full 10 seconds -6a. Left Leg 0 - No drift; leg holds 30- degree position for full 5 seconds -6b. Right Leg 0 - No drift; leg holds 30- degree position for full 5 seconds -7. Limb Ataxia 0 - Absent -8. Sensory 0 - Normal; no sensory loss -9. Best Language 0 - No aphasia; normal -10. Dysarthria 1 = Mild-to- moderate dysarthria; -11. Extinction and Inattention 0 - No abnormality -Total 2 Query Text:A score of 0 is normal or asymptomatic. Total possible score is 42 . ED: Notify Physician for NIHSS increase by > / = 3 points. Inpatient: RN or Physician to activate a stroke alert for NIHSS increase of > / = 3 points.
--- NOTE | 2025-01-11 19:35 | NURSING ---
01/11/251919: Blood sugar done at 1645 result 109, no SSC required per order. [employer] down and unable to document at time of testing. Patient transferred to PCU Rm. 107 via wheelchair with son present at 1815, report given to Trice WALKER prior to transfer. Zaria Kendrick RN
[2025-01-11] MEDS: 0.9% Saline Lock 10 ML Syringe IV (21:39)
[2025-01-12 01:42] VITALS: BMI 42.6
[2025-01-12 04:00] VITALS: BP 152/84; PULSE 54; RESP 16; TEMP 36.6; O2SAT 97
[2025-01-12 05:00] VITALS: BMI 42.8
--- NOTE | 2025-01-12 07:12 | PN.NEURO_ITS ---
Assessment and Plan: Neuro
--- NOTE | 2025-01-12 07:12 | NEURO.PNOTE ---
Assessment and Plan: Neuro Assessment/Plan Attending Telestroke Progress Note (Telestroke - Audio/video interface) - Seen on 01/11/2025 Diagnosis: TNK aborted stroke. Plan: ASA and statin. Recommended no further use of triptan for migraine. 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 Subject: Neurology Subjective She reports feeling back to normal EEG Results Procedure Details EEG Procedure Details: CARMEN TREJO is a 69 year old F with a past medical history of , who presents for evaluation of Electroencephalogram on DATE at TIME Objective Data Objective Data Vital Signs: Vital Signs Temp Pulse Resp BP Pulse Ox O2 Del Method O2 Flow Rate 97.8 F 54 L 16 152/84 H 97 CPAP 3 01/12/25 04:00 01/12/25 04:00 01/12/25 04:00 01/12/25 04:00 01/12/25 04:00 01/12/25 04:00 01/12/25 04:00 FiO2 21 01/11/25 23:16 Oxygen Flow Rate (L/min) 3 Oxygen Delivery Method CPAP Weight: 120.4 kg Body Mass Index (BMI) 42.8 Intake & Output: Intake and Output for Last 24 Hours 01/10/25 01/11/25 01/12/25 23:59 23:59 23:59 Intake Total 2725.00 / 2725.00 1751.66 / 1751.66 Output Total 1000 / 1000 0 / 0 Balance 1725.00 / 1725.00 1751.66 / 1751.66 0 / 0 Lab / Micro Data 01/10/25 03:40 01/10/25 03:40 Labs: Laboratory Results - last 24 hr 01/11/25 07:58: POC Glucose 78 01/11/25 12:05: POC Glucose 99 01/11/25 16:44: POC Glucose 105 01/11/25 21:50: POC Glucose 79 01/12/25 05:42: POC Glucose 74 Rhythm Strip Rhythm Strip: Sinus Rhythm Rate: 64 Ectopy: None Physical Exam Narrative General: The patient appears nutritionally appropriate, well-groomed, and appears comfortable in no acute distress. Mental Status:? The patient?s mental status was normal including orientation.? Language was intact.? Cranial nerves:? Visual lance full, and extra-ocular motion was intact. Symmetric face. Motor: Normal strength in all extremities. Sensation: Intact to touch in all extremities.? Coordination:? Bilateral finger to nose was normal.? There was no dysmetria. Gait:? deferred. NIHSS NIHSS Nursing Documentation NIHSS Nursing Documentation: Thrombolytic: Vital Signs & NIHSS Start: 01/09/25 15:26 Text: Assess and document vital signs and NIHSS Status: Complete within 15 minutes of tenecteplase bolus administration Freq: Q2H Protocol: Activity Type Activity Date Activity User E-sign Co-sign Detail Recorded Client Recorded Date Recorded By Document 01/10/25 17:00 DIAZ [id number] 01/10/25 19:46 DIAZ 01/10/25 17:00 Vital Signs [Pulse] -Pulse Rate (60-100) 64 -Pulse Location Monitor [Respirations] -Respiratory Rate (12-18) 17 -Respiratory rate source Monitor -Pulse Oximetry 95 -Oxygen Delivery Method Nasal Cannula -O2 L/MIN (L/min) 1 [Blood Pressure] -Blood Pressure (90/60-120/80) 141/96 H -Blood Pressure Mean (mm Hg) 111 -Source Monitor -Position Sitting -Blood Pressure Location Left Forearm -Is the SBP > or = 180 No -Is the DBP > or = 105 No NIH Stroke Scale [NIHSS] A score of 0 is normal or asymptomatic . Total possible score is 42. Inpatient: RN or Physician to activate a stroke alert for onset of new stroke symptoms or with NIHSS increase >/= 3 points. Following change in neurological status, NIHSS will be performed per physician order or more frequently PRN. -1a. Level of Consciousness 0 - Alert; keenly responsive -1b. LOC Questions 0 - Answers BOTH questions correctly -1c. LOC Commands 0 - Performs BOTH tasks correctly -2. Best Gaze 0 - Normal -3. Visual 1 - Partial hemianopia -4. Facial Palsy 0 - Normal symmetrical movements -5a. Left Arm 0 - No drift; arm holds 90 ( or 45) degrees for full 10 seconds -5b. Right Arm 0 - No drift; arm holds 90 ( or 45) degrees for full 10 seconds -6a. Left Leg 0 - No drift; leg holds 30- degree position for full 5 seconds -6b. Right Leg 0 - No drift; leg holds 30- degree position for full 5 seconds -7. Limb Ataxia 0 - Absent -8. Sensory 0 - Normal; no sensory loss -9. Best Language 0 - No aphasia; normal -10. Dysarthria 1 = Mild-to- moderate dysarthria; -11. Extinction and Inattention 0 - No abnormality -Total 2 Query Text:A score of 0 is normal or asymptomatic. Total possible score is 42 . ED: Notify Physician for NIHSS increase by > / = 3 points. Inpatient: RN or Physician to activate a stroke alert for NIHSS increase of > / = 3 points. NIHSS 1a. Level of Consciousness: 0 - Alert; keenly responsive 1b. LOC Questions: 0 - Answers BOTH questions correctly 1c. LOC Commands: 0 - Performs BOTH tasks correctly 2. Best Gaze: 0 - Normal 3. Visual: 0 - No visual loss 4. Facial Palsy: 0 - Normal symmetrical movements 5a. Left Arm: 0 - No drift; arm holds 90 (or 45) degrees for full 10 seconds 5b. Right Arm: 0 - No drift; arm holds 90 (or 45) degrees for full 10 seconds 6a. Left Le - No drift; leg holds 30-degree position for full 5 seconds 6b. Right Le - No drift; leg holds 30-degree position for full 5 seconds 7. Limb Ataxia: 0 - Absent 8. Sensory: 0 - Normal; no sensory loss 9. Best Language: 0 - No aphasia; normal 10. Dysarthria: 0 - Normal 11. Extinction and Inattention: 0 - No abnormality Total: 0
[2025-01-12] MEDS: Aspirin E.C. 81 MG Tablet PO (08:22)
--- NOTE | 2025-01-12 09:46 | CASEMGMT ---
Addendum entered by Amy Dudley 01/12/25 15:35: DENISE RODRIGES updated by Padmaja in TCU that precet has been obtained. DENISE RODRIGES updated patient and hospitalist and discharge plan for today. Addendum entered by Amy Dudley 01/12/25 10:46: DENISE RODRIGES updated by Padmaja in TCU that patient has been accepted but patient will need to supply Ozempic from home or hold the medications. DENISE RODRIGES in to update patient of acceptance to TCU and request for her to bring Ozempic to TCU. Patient states she can have Ozempic brought in from home. Patient had no further questions or concerns. DENISE RODRIGES updated Padmaja in TCU that patient will bring Ozempic from home. Per Padmaja she has started precert. Original Note: DENISE RODRIGES in to discuss discharge planning with patient. Patient states she reviewed SNF list and her preferences are 1. [facility] 2. [facility] 3. [facility]. Patient agreeable to have referral sent to TCU. Patient had no further questions or concerns. DENISE RODRIGES made referral to TCU intake liaision, Padmaja. CM will continue to follow this patient and plan for a safe discharge.
[2025-01-12 10:00] VITALS: BP 149/71; PULSE 67; RESP 17; TEMP 36.8; O2SAT 94
[2025-01-12 10:38] VITALS: O2SAT 92
[2025-01-12 16:00] VITALS: BP 147/84; PULSE 65; RESP 15; TEMP 36.7; O2SAT 96
--- NOTE | 2025-01-12 16:02 | PCM.TXEXTCAR ---
Diet Diet Order/Speech Therapy: INPATIENT Hospital Diet / Speech Therapy Order(s) 01/10/25 09:40 Diet: Regular - General Food consistency:: Easy to Chew Liquid Consistency:: Regular/Thin Dietary Modifications:: No Added Salt Speech Therapy Comments: slow&small bites/sips, sitting upright, multiple swallows Routine Orders/Code Status Code Status: DNRCC-A (No intubation) DC O2, CPAP, BIPAP needs Home O2 Discharge instructions: No Therapies Weight Bearing: Full weight bearing Physical Therapy: Eval and Treat Occupational Therapy: Eval and Treat Speech Therapy: Eval and Treat Problem/Diagnosis (1) Acute right hemiparesis: Status: Acute Code(s): G81.91 - Hemiplegia, unspecified affecting right dominant side (2) Stroke-like symptoms: Status: Acute Code(s): R29.90 - Unspecified symptoms and signs involving the nervous system Plan 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 81 mg aspirin daily and Lipitor 40 mg daily #2 type 2 diabetes-blood sugars will be monitored, sliding scale insulin will be administered if indicated #3 hypothyroidism-patient has a normal T4 but a low T3, repeat thyroid function test should be performed in 4 weeks #4 essential hypertension-patient will remain on lisinopril and atenolol #5 oropharyngeal dysphagia Total clinical time spent by myself addressing the patient's medical issues, reviewing all her data, and collaborating with patient's care team: 35-minute Allergies/Procedures Done in Hospital Allergies No Known Allergies Allergy (Verified 01/09/25 15:01) Procedures: 2-D Echocardiogram Type of Care/Length of Stay Estimated LOS: Convalescent Care Less Than 30 days Type of Care Needed: Skilled Rehab Potential: Good Prognosis: Good Additional Orders/Day of Discharge H&P will serve as current which was dated: 01/09/25 Day of Discharge: 01/12/25 Dietary and Speech Recommendations Dietitian Recommendations/Changes: Adjust to regular, no added salt per MANAGER VIDEO GAMES recommendations. Will monitor weight trends. Discharge Plan Admission Admit Date/Time: 01/09/25 16:30 Primary Reason for Your Visit: Aborted stroke/TIA Attending Provider: Ronnie Krishnamurthy Primary Care Provider: Philip England Consulting Providers: Odin Terrell; Bryon Zavala; Rambo Garcia; Vito Jones; Parvez Snider; Dawit Dorado; Damaris Hughes; Hi Keys; Meche Melendez; Abel Short; Patricia Silverman; Daniel Schwartz; Davian Hanson; Meka Robert; Murphy Bhatia; Jesus Mayfield; Ethan Camargo; Danette Mathias; Lazara Reeves; Ivone Palacios; Bing Meyer; Melanie Mckeon; Ronnie Garduno; Shane,Jhonny; Carmen Tipton; Michelle Malhotra; Cory Chan; Jhonny Raymundo; David Peace; Ramana Bennett; Vladislav Torres; Roshni oNyola; Yeni,Jason; Edson Ruby; Alex Baez; Danie Oliva; Jessica Villalobos; Mawarjanel,Samih; David Haro; Pancfacundo,Eliezer; Turfe,Mckinley; Mason,Shawn; Sudhir Trinh; Roman Murphy; Yocasta Blanco NP; Maria Teresa Lin; Balaji Thomas; Chas Hwang; Sri,Diana; Desiree Hutchinson; Jermaine,Cathy; Mini,Art; Tiffany,Obdulia; Elvistaaurora,Marco; Дмитрий Menjivar; Kyaw Trent; Trish Meneses; Dee Rowe; Pradeep Ramirez; Ela Hernandes; Kailee,Cory; Felicia Rider; Seth Garcia; Brian Brown; Gume Jimenez; Hallie Smith; Matilde Leone Discharge Orders/Prescriptions Prescriptions: New acetaminophen 325 mg Tablet 650 mg PO Q6H PRN PRN (Reason: Pain 1-10 Or Fever>100.7) Qty: 0 0RF aspirin 81 mg Tablet,Delayed Release (Dr/Ec) 81 mg PO BREAKFAST Qty: 0 0RF Continued atorvastatin 40 mg tablet 40 mg PO DAILY atenolol 100 mg tablet 100 mg PO DAILY lisinopril 5 mg tablet 2.5 mg PO DAILY levothyroxine 137 mcg tablet 137 mcg PO DAILY CPAP - Continuous Positive Airway Pressure([facility] INFORMATIONAL USE ONLY) Patient Comments: Patient does not know if she uses CPAP or Bipap or settings Rx Instructions: As Directed Discontinued Ozempic 1 mg/dose (4 mg/3 mL) pen injector 1.3333 mg subcut QWEEK Referrals / Follow Up: Phliip England MD [Primary Care Provider, Family Practice] Disposition Disposition (needs filled in before D/C Order can be placed): Long Term Facility
--- NOTE | 2025-01-12 16:08 | PCM.DC.SUM ---
Providers Date of Admission: 01/09/25 Date of Discharge: 01/12/25 Primary Care Physician: Philip England MD Consultations 01/09/25 15:26 Consult: Reclaimer / Pulmonary Medicine Routine Consulting Provider: [facility] Reason for Consult: stroke for thrombolytic administration EMERGENT Consult: Yes MD Notified: Yes Date Notified: 01/09/25 Time Notified: 17:26 Method of Notification: Text Comments:: Consult may be done in ED or ICU 01/09/25 17:28 Consult: Tele-Neurology Routine Consulting Provider: [facility] Reason for Consult: Acute Stroke Post Tenecteplase administration EMERGENT Consult: No MD Notified: Yes Date Notified: 01/09/25 Time Notified: 16:33 Method of Notification: ED Physician Initiated Nursing Unit Staff Notify [facility] of Tele-Neurology Consult: Yes Reason For Visit: STROKE LIKE SYMPTOMS S/P TNK Diagnosis Discharge Diagnosis (1) Acute right hemiparesis: Status: Acute Code(s): G81.91 - Hemiplegia, unspecified affecting right dominant side (2) Stroke-like symptoms: Status: Acute Code(s): R29.90 - Unspecified symptoms and signs involving the nervous system Plan 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 81 mg aspirin daily and Lipitor 40 mg daily #2 type 2 diabetes-blood sugars will be monitored, sliding scale insulin will be administered if indicated #3 hypothyroidism-patient has a normal T4 but a low T3, repeat thyroid function test should be performed in 4 weeks #4 essential hypertension-patient will remain on lisinopril and atenolol #5 oropharyngeal dysphagia Total clinical time spent by myself addressing the patient's medical issues, reviewing all her data, and collaborating with patient's care team: 35-minute Medications at Discharge Home Medications atenolol 100 mg tablet 100 mg PO DAILY Blood pressure 01/09/25 atorvastatin 40 mg tablet 40 mg PO DAILY Cholesterol 01/09/25 levothyroxine 137 mcg tablet 137 mcg PO DAILY Hypothyroid 01/09/25 lisinopril 5 mg tablet 2.5 mg PO DAILY Blood pressure 01/09/25 CPAP - Continuous Positive Airway Pressure([facility] INFORMATIONAL USE ONLY) Pulmonary Information 01/10/25 acetaminophen 325 mg tablet 650 mg (2 x 325 mg) PO Q6H PRN PRN Pain 1-10 Or Fever>100.7 #0 tabs 01/12/25 aspirin 81 mg tablet,delayed release 81 mg PO BREAKFAST Prophylaxis #0 tabs 01/12/25 Hospital Course Operations None Procedures 2-D Echocardiogram Summary of Care Provided Minutes Spent on Discharge: 31 Hospital Course: This 69-year-old white female was seen in the emergency room at [facility] as a stroke alert, she complained of weakness in her right arm and had sensory deficits throughout the right side including the lower face but no facial droop. She did not complain of any visual disturbances, she had significant difficulty with speech in the emergency room. CT of the brain was obtained which showed no evidence of hemorrhage or acute process, conversation was carried out with the family and the patient concerning administration of TNK as her NIH score was 16. The family agreed to the administration of TNK after talking with the emergency room physician who felt that it was appropriate. Patient was given TNK and was seen by stroke neurology, she was admitted to ICU and seen by PT and OT, MRI was obtained which showed no evidence of acute stroke. Patient was transferred to PCU for further care and skilled care in a [facility] facility was recommended at least for short-term. TCU was contacted and agreed to take the patient and pre-CERT was obtained. On 01/12/2025, patient was seen and examined: On examination she appeared in good health and spirits, she does not appear to be in any distress. Vital signs as documented. Skin warm and dry and without overt rashes. Neck without JVD, thyroid appears normal, trachea is midline, neck is supple. Lungs clear, normal air movement was noted. Heart exam notable for regular rhythm, normal sounds and absence of murmurs, rubs or gallops. Abdomen unremarkable and without evidence of organomegaly, masses, or abdominal aortic enlargement, bowel sounds are present in all 4 quadrants, no abdominal tenderness was noted. Extremities nonedematous, no cyanosis was noted, no clubbing was noted. Neuro: Cranial nerves II through XII are grossly intact, no focal motor deficits were noted, sensation to light touch and pinprick is intact, motor exam 5/5 throughout. Psych: Patient is alert and oriented x3, she does not appear anxious or depressed, she does not appear agitated. Patient was transferred to TCU in stable condition on 01/12/2025 Weight / BMI Weight Weight: 120.4 kg Body Mass Index (BMI) 42.8 ABG / Lab / Microbiology Data 01/10/25 03:40 01/10/25 03:40 Laboratory: Laboratory Results - last 24 hr 01/12/25 16:54: POC Glucose 71 L D/C Instructions DC O2, CPAP, BIPAP Needs Home O2 Discharge instructions: No Meaningful Use Info Meaningful Use Meaningful Use Diagnoses (Choose all that apply): None applicable Discharge Plan Admission Admit Date/Time: 01/09/25 16:30 Primary Reason for Your Visit: Aborted stroke/TIA Attending Provider: Ronnie Krishnamurthy Primary Care Provider: Philip England Consulting Providers: Odin Terrell; Bryon Zavala; Rambo Garcia; Vito Jones; Parvez Snider; Dawit Dorado; Damaris Hughes; Hi Keys; Meche Melendez; Abel Short; Patricia Silverman; Daniel Schwartz; Davian Hanson; Meka Robert; Murphy Bhatia; Jesus Mayfield; Ethan Camargo; Danette Mathias; Lazara Reeves; Ivone Palacios; Bing Meyer; Melanie Mckeon; Ronnie Garduno; Jhonny Lynn; Carmen Tipton; Michelle Malhotra; Cory Chan; Jhonny Raymundo; David Peace; Ramana Bennett; Vladislav Torres; Roshni Noyola; Jason Jaime; Tung,Edson; Alex Baez; Pj,Danie; Griselda,Jessica; Anurag,Samchastity; David Haro; Eliezer Corbett; Areli,Mckinley; Mason,Shawn; Sudhir Trinh; Roman Murphy; Yocasta Blanco GYM SUPERVISOR; Maria Teresa Lin; Balaji Thomas; Chas Hwang; Diana Fierro; Desiree Hutchinson; Cathy Dean; Art Morse; Obdulia Allen; Marco Ritter; Дмитрий Menjivar; Kyaw Trent; Trish Meneses; Dee Rowe; Pradeep Ramirez; Ela Hernandes; Cory Dugan; Felicia Rider; Seth Garcia; Brian Brown; Gume Jimenez; Hallie Smith; Matilde Leone Discharge Orders/Prescriptions Prescriptions: New acetaminophen 325 mg Tablet 650 mg PO Q6H PRN PRN (Reason: Pain 1-10 Or Fever>100.7) Qty: 0 0RF aspirin 81 mg Tablet,Delayed Release (Dr/Ec) 81 mg PO BREAKFAST Qty: 0 0RF Continued atorvastatin 40 mg tablet 40 mg PO DAILY atenolol 100 mg tablet 100 mg PO DAILY lisinopril 5 mg tablet 2.5 mg PO DAILY levothyroxine 137 mcg tablet 137 mcg PO DAILY CPAP - Continuous Positive Airway Pressure([facility] INFORMATIONAL USE ONLY) Patient Comments: Patient does not know if she uses CPAP or Bipap or settings Rx Instructions: As Directed Discontinued Ozempic 1 mg/dose (4 mg/3 mL) pen injector 1.3333 mg subcut QWEEK Referrals / Follow Up: Philip England MD [Primary Care Provider, [facility]] Disposition Disposition (needs filled in before D/C Order can be placed): [facility] Facility Charges/Coding Visit Charges Inpatient E&M: 10700 Disch Hosp >30min
[2025-01-12 17:00] VITALS: BMI 42.8
--- NOTE | 2025-01-12 17:09 | CASEMGMT ---
Social Work Per physician, pt is ready for discharge. Discharge orders faxed to TCU. RN updated that pt is ready for dc. Plan: TCU, skilled level of care CHIDI Flores
--- NOTE | 2025-01-12 18:08 | NURSING ---
report given to Yocasta in TCU, [address] per her request
== END 2025-01-12 18:33 | disposition skilled nursing facility (03) | DRG 62 ==
LOC: ED 17:04 → ICU 17:07 → PCU 01-11 18:26
PROVIDERS: Admitting Provider Hospitalist; Emergency Provider Emergency Medicine; PCP Family Medicine; Visit Provider Internal Medicine
DX: G45.9 Transient cerebral ischemic attack, unspecified (principal); G81.91 Hemiplegia, unspecified affecting right dominant side; Z68.41 Body mass index [BMI] 40.0-44.9, adult; R47.01 Aphasia; Z66 Do not resuscitate; E11.22 Type 2 diabetes mellitus with diabetic chronic kidney disease; N18.32 Chronic kidney disease, stage 3b; I12.9 Hypertensive chronic kidney disease with stage 1 through stage 4 chronic kidney disease, or unspecified chronic kidney disease; E03.9 Hypothyroidism, unspecified; M17.11 Unilateral primary osteoarthritis, right knee; E78.5 Hyperlipidemia, unspecified; G43.909 Migraine, unspecified, not intractable, without status migrainosus; R13.12 Dysphagia, oropharyngeal phase; E66.813 Obesity, class 3; R47.1 Dysarthria and anarthria; Z79.85 Long-term (current) use of injectable non-insulin antidiabetic drugs; Z79.890 Hormone replacement therapy; Z79.899 Other long term (current) drug therapy
CPT/HCPCS: 70450; 70496; 70498; 70551; 74230; 80048; 80061; 82962; 83036; 84436; 84443; 84481; 84484; 85025; 85027; 85610; 85730; 92526; 92610; 92611; 93005; 93306; 94660; 97116; 97163; 97167; 97530; 97535; 97802; 99285; J3101; Q9957; Q9967; A4216; C8929

== ENCOUNTER 2025-01-12 18:45 | Inpatient (IN) | payer MEDICARE, SELFPAY ==
--- OUTSIDE RECORDS SUMMARY | 2025-01-12 18:50 | XMS RPT_ITS | CCD ---
Author Organization [facility] Care Team Providers Care Supply Chain Engineer Name Role Phone None, Physician Primary Care Provider [phone] MD Jackie Bass Attending Provider [phone] None, Physician Primary Care Provider MD Jackie Bass Attending Provider [phone] MD Jackie Bass Primary Care Provider ROLY Regalado Attending Provider MD Zaid Blank Attending Provider DO Jesus Jim Attending Provider None, Physician Primary Care Provider MD Jackie Bass Attending Provider [phone] MD Jackie Bass Attending Provider MD Jackie Bass Primary Care Provider MD Zaid Blank Attending Provider DO Jesus Jim Attending Provider MD Jackie Bass Attending Provider [phone] ARLETH Silva Attending Provider MD Kev Bass Primary Care Provider MD Kev Bass Attending Provider [phone] MD Kev Bass Primary Care Provider ARLETH Silva Attending Provider ARLETH Barron Attending Provider MD Kev Bass Lyon Primary Care Provider MD Kev Bass Attending Provider [phone] Kali LAST, [facility] Primary Care Provider Kali LAST, Kev Strickland Attending Provider Omayra Silva APRN Attending Provider Hammad Gore MD Attending Provider [phone] Kali LAST, Kev Lyon Primary Care Provider Hammad Gore MD Attending Provider [phone] [facility] Unavailabl e Mastouri, Hammad Attending Unavailable Kali, [facility] Primary Care Unavailabl e Mastouri, Hammad Attending Unavailable Terra Mabry Attending Unavai lable Kali, [facility] Primary Care Unavailabl e Kali, Kev Strickland Attending Unavailabl e Kali, [facility] Primary Care Unavailabl e Kali, Kev Em Attending Unavailabl e Kali, [facility] Primary Care Unavailabl e Kali, [facility] Att[facility] Unavailabl e Kali, [facility] Primary Care Unavailabl e Kali, [facility] Primary Care Unavailabl e Silva Omayra IVY Attending [facility]aila ble [facility] Unav[facility] Mastouri, Hammad Attending Unavailable Philip England MD Primary Care Provider [phone] Philip England MD Attending Provider [phone] Philip England MD Referring Provider [phone] Philip England Primary Care Unavailable Philip England Attending Unavailable Philip England Referring Unavailable Sofy Sheirff Attending Unavailable Philip England Primary Care Unavailable Bryon Zavala Consulting Unavailable Odin Terrell Admitting Unavailable Rambo Garcia Consulting Unavailable Vito Jones Consulting Unavailable Parvez Snider Consulting Unavailable Dawit Dorado Consulting Unavailable Damaris Hughes Consulting Unavailable Hi Keys Consulting Unavailable Meche Melendez Consulting Unavailable Abel Short Consulting Unavailable Patricia Silverman Consulting UnavailDaniel Perez Consulting Unavailable Davian Hanson Consulting Unavailable Meka Robert Consulting Unavailable Murphy Bhatia Consulting UnavailJesus Cantrell Consulting Unavailable Ethan Camargo Consulting Unavailable Danette Mathias Consulting Unavailable Lazara Reeves Consulting Unavailable Ivone Palacios Consulting Unavailable Bing Meyer Consulting Unavailable Linda Mustafizjuan pablo Consulting UnavailRonnie Franco Consulting Unavailable Shane, Barry Consulting Unavailable Carmen Tipton Consulting Unavailable Michelle Malhotra Consulting Unavailable Cory Chan Consulting Unavailable Jhonny Raymundo Consulting Unavailable David Peace Consulting Unavailable Ramana Bennett Consulting Unavailable Vladislav Torres Consulting Unavailable Roshni Noyola Consulting Unav ailable Yeni, Jason Consulting Unavailable Edson Ruby Consulting Unavailable Alex Baez Consulting Unavailable Danie Oliva Consulting Unavailable Jessica Villalobos Consulting Unavailable Nikki Osborn Consulting Unavailable David Haro Consulting Unavailable Eliezer Corbett Consulting Unavailable Mckinley Singleton Consulting Unavailable Shawn Cuevas Consulting Unavailable Sudhir Trinh Consulting UnavailRoman Paz Consulting Unavailable Yocasta Blanco NP Consulting Unavailable Maria Teresa Lin Consulting Unavailable Odin Terrell Consulting Unavailable Odin Terrell Attending Unavailable Ronnie Krishnamurthy Attending Unavailable Balaji Thomas Consulting Unavailable Chas Hwang Consulting Unavailable Hindulalito Diana Consulting Unavailable Jasper Desiree Consulting Unavailable Jermaine Cathy Consulting Unavailable Art Morse Consulting Unavailable Obdulia Allen Consulting Unavailable Marco Ritter Consulting Unavailable Дмитрий Menjivar Consulting Unavailable Kyaw Trent Consulting Unavailable Trish Meneses Consulting Unavailable Dee Rowe Consulting Unavailable Pradeep Ramirez Consulting Unavailable Ela Hernandes Consulting Unavailable Cory Dugan Consulting Unavailable Felicia Rider Consulting UnavailSeth Arellano Consulting Unavailable Brian Brown Consulting Unavailable Gume Jimenez Consulting Unavailable Hallie Smith Consulting Unavailable Matilde Leone Consulting Unavailable Ronnie Krishnamurthy Consulting Unavailable Philip England Primary Care Unavailable Emili Lazo Attending Unavailable Philip England Referring Unavailable Philip England Primary Care Unavailable Philip England Attending Unavailable Allergies Allergy Classification Reported Allergen(s) Allergy Type Date of Onset Reaction(s) Facility (1 source) Contrast media; Translations: [ivp dye] Propensity to adverse reactions (disorder) 3 [facility] Repository Medications Current Medications Medication Drug Class(es) Dates Sig (Normalized) Sig (Original) atenolol 100 mg oral tablet (20 sources) beta-Adrenergic Luis Start: 02-23-2023 take 1 tablet by mouth once daily Atenolol 100 mg Tablet Active 100 MG PO Daily February 23, 2023 1:00am atorvastatin 40 mg oral tablet (20 sources) HMG-CoA Reductase Inhibitor Start: 02-23-2023 take 1 tablet by mouth once daily Atorvastatin 40 mg Tablet Active 40 MG PO Daily February 23, 2023 1:00am Calcium (20 sources) Phosphate Binder, Calcium Start: 02-23-2023 take 1 mg by mouth once daily Calcium 100 mg Capsule Active 1 MG PO Daily February 23, 2023 1:00am Start: 02-23-2023 take 1 mg by mouth once daily Calcium 100 mg Capsule Active 1 MG PO Daily February 23, 2023 12:00am Start: 02-23-2023 take 1 mg by mouth once daily Calcium Active 1 MG PO Daily February 23, 2023 1:00am Start: 02-23-2023 take 1 mg by mouth once daily Calcium Active 1 MG PO Daily February 23, 2023 12:00am cholecalciferol 0.125 mg oral tablet (20 sources) Vitamin D Start: 02-23-2023 take 1 tablet by mouth once daily Cholecalciferol (Vitamin D3) (Vitamin D3) 125 mcg (5,000 unit) Tablet Active 125 MCG PO Daily February 23, 2023 1:00am eszopiclone 2 mg oral tablet (20 sources) Start: 02-23-2023 take 1 tablet by mouth once Eszopiclone 2 mg tablet Active 2 MG PO One Time Only 1 February 23, 2023 1:00am Bring medication with you on the night of the sleep study. levothyroxine sodium 0.15 mg oral tablet (20 sources) l-Thyroxine Start: 02-23-2023 take 1 tablet by mouth once daily Levothyroxine 150 mcg Tablet Active 150 MCG PO Daily February 23, 2023 1:00am lisinopril 5 mg oral tablet (20 sources) Angiotensin Converting Enzyme Inhibitor Start: 02-23-2023 take 1 tablet by mouth once daily Lisinopril 5 mg Tablet Active 5 MG PO Daily February 23, 2023 1:00am magnesium oxide 400 mg oral tablet (20 sources) Start: 02-23-2023 take 1 tablet by mouth twice daily Magnesium Oxide 400 mg (241.3 mg magnesium) Tablet Active 400 MG PO Twice Daily February 23, 2023 1:00am spironolactone 50 mg oral tablet (20 sources) Aldosterone Antagonist Start: 02-23-2023 take 1 tablet by mouth twice daily Spironolactone 50 mg Tablet Active 50 MG PO Twice Daily February 23, 2023 1:00am Problems Problem Classification Problem Date Documented Da te Episodic/Chronic Chronic obstructive pulmonary disease and bronchiectasis (20 sources) Chronic obstructive lung disease; Translations: [Chronic obstructive pulmonary disease, unspecified] 02-23-2023 Chronic Diseases of mouth; excluding dental (20 sources) Xerostomia; Translations: [Dry mouth, unspecified] 02-23-2023 Episodic Headache; including migraine (20 sources) Morning headache; Translations: [Morning headache] 02-23-2023 Episodic Hypertension with complications and secondary hypertension (1 source) Hypertensive chronic kidney disease with stage 1 through stage 4 chronic kidney disease, or unspecified chronic kidney disease; Translations: [Hypertensive chronic kidney disease with stage 1 through stage 4 chronic kidney disease, or unspecified chronic kidney disease] Onset: 06-28-2024 Chronic Miscellaneous mental health disorders (20 sources) Bruxism (teeth grinding); Translations: [Other somatoform disorders] 02-23-2023 Chronic Other connective tissue disease (20 sources) Muscle pain; Translations: [Myalgia, unspecified site] 02-23-2023 Episodic Other connective tissue disease (5 sources) Myalgia, unspecified site; Translations: [Myalgia and myositis, unspecified] 02-23-2023 Episodic Other connective tissue disease (1 source) Unspecified symptoms and signs involving the nervous system; Translations: [Unspecified symptoms and signs involving the nervous system] Onset: 01-12-2025 Episodic Other hereditary and degenerative nervous system conditions (20 sources) Restless legs; Translations: [Restless legs syndrome] 02-23-2023 Chronic Other hereditary and degenerative nervous system conditions (5 sources) Restless legs syndrome; Translations: [Restless legs syndrome (RLS)] 02-23-2023 Chronic Other injuries and conditions due to external causes (1 source) Unspecified injury of right foot, initial encounter; Translations: [Unspecified injury of right foot, initial encounter] Onset: 01-09-2025 Episodic Other lower respiratory disease (20 sources) Snoring; Translations: [Snoring] 02-23-2023 Episodic Other lower respiratory disease (5 sources) Snoring; Translations: [Other respiratory abnormalities] 02-23-2023 Episodic Other nutritional; endocrine; and metabolic disorders (20 sources) Body mass index 40+ - severely obese; Translations: [Morbid (severe) obesity due to excess calories] 02-23-2023 Chronic Other nutritional; endocrine; and metabolic disorders (5 sources) Morbid (severe) obesity due to excess calories; Translations: [Morbid obesity] 02-23-2023 Chronic Other skin disorders (20 sources) Night sweats; Translations: [Generalized hyperhidrosis] 02-23-2023 Episodic Other skin disorders (5 sources) Generalized hyperhidrosis; Translations: [Generalized hyperhidrosis] 02-23-2023 Episodic Paralysis (1 source) Hemiplegia, unspecified affecting right dominant side; Translations: [Hemiplegia, unspecified affecting right dominant side] Onset: 01-12-2025 Chronic Residual codes; unclassified (20 sources) Obstructive sleep apnea syndrome; Translations: [Obstructive sleep apnea (adult) (pediatric)] 02-23-2023 Chronic Residual codes; unclassified (20 sources) Sleeptalking; Translations: [Other sleep disorders] 02-23-2023 Chronic Residual codes; unclassified (5 sources) Obstructive sleep apnea (adult) (pediatric); Translations: [Obstructive sleep apnea (adult)(pediatric)] 02-23-2023 Chronic Residual codes; unclassified (5 sources) Other sleep disorders; Translations: [Other specific disorders of sleep of nonorganic origin] 02-23-2023 Chronic Residual codes; unclassified (20 sources) Restless sleep; Translations: [Sleep disorder, unspecified] 02-23-2023 Episodic Residual codes; unclassified (5 sources) Sleep disorder, unspecified; Translations: [Sleep disturbance, unspecified] 02-23-2023 Episodic Screening and history of mental health and substance abuse codes (20 sources) H/O: Disorder; Translations: [Personal history of other mental and behavioral disorders] 02-23-2023 Episodic Thyroid disorders (20 sources) Hypothyroidism; Translations: [Hypothyroidism, unspecified] 02-23-2023 Chronic Results Test Name Value Interpretation Reference Range Facility Bedside Glucoseon 01-12-2025 F[facility]ERSTICK GLU 71 mg/dL Low 74-106 [facility] Comment on above: Result Comment: DOM GEMENT OF PATIENT CARE PER NURSING PROTOCOL Performed By: #### L 501.2300, L500.4050, L501.9520, L501.5200, L509.1000, L100.0100 #### [facility] [address] [place], [address] FINGERSTICK GLU 171 mg/dL High 74-106 [facility] Comment on above: Result Comment: DOM GEMENT OF PATIENT CARE PER NURSING PROTOCOL Performed By: #### L 501.2300, L500.4050, L501.9520, L501.5200, L509.1000, L100.0100 #### [facility] [address] [place], [address] FINGERSTICK GLU 74 mg/dL Normal 74-106 [facility] Comment on above: Result Comment: DOM GEMENT OF PATIENT CARE PER NURSING PROTOCOL Performed By: #### L 501.2300, L500.4050, L501.9520, L501.5200, L509.1000, L100.0100 #### [facility] [address] [place], [address] Bedside Glucoseon 01-11-2025 FINGERSTICK GLU 79 mg/dL Normal 74-106 [facility] Comment on above: Result Comment: DOM GEMENT OF PATIENT CARE PER NURSING PROTOCOL Performed By: #### L 501.2300, L500.4050, L501.9520, L501.5200, L509.1000, L100.0100 #### [facility] [address] [place], [address] FINGERSTICK GLU 105 mg/dL Normal 74-106 [facility] Comment on above: Result Comment: DOM GEMENT OF PATIENT CARE PER NURSING PROTOCOL Performed By: #### L 501.2300, L500.4050, L501.9520, L501.5200, L509.1000, L100.0100 #### [facility] [address] [place], [address] FINGERSTICK GLU 99 mg/dL Normal 74-106 [facility] Comment on above: Result Comment: DOM GEMENT OF PATIENT CARE PER NURSING PROTOCOL Performed By: #### L 501.080 #### [facility] [address] [place], [address] FINGERSTICK GLU 78 mg/dL Normal 74-106 [facility] Comment on above: Result Comment: DOM GEMENT OF PATIENT CARE PER NURSING PROTOCOL Performed By: #### L 501.080 #### [facility] [address] [place], [address] Free T3on 01-11-2025 Free T3 [Mass/Vol] 1.2 pg/mL Low 2.18-3.98 [facility] Comment on above: Performed By: #### L 501.2300, L500.4050, L501.9520, L501.5200, L509.1000, L100.0100 #### [facility] [address] [place], [address] Modified Barium Swallow Stud yon 01-11-2025 Modified Barium Swallow Study [facility] Speech Pathology [address] [place] [address] Modified Barium Swallow Study MR#: [id number] Acct: [id number] Name: CARMEN TREJO #: [id number] : 1955 69 From: Debbie Sanders M.A., [facility]-RADIOSONDE SPECIALIST Modified Barium Swallow Patient Information Study Date: 01/11/25 Study Time: 13:40 Direct Billable Minutes: 81 Total Minutes procedure reportin Diagnosis: Acute R hemiparesis G81.91; Stroke-like symptoms R29.90 Referring Physician: Ronnie Krishnamurthy Reason for Referral: Assess swallow function, assess risk for aspiration, and determine recommendations for least restrictive diet textures and compensatory strategies to improve swallowing safety. Medical History: Pt presented to [facility] ED 01/09/25 due to headache x4 days with extreme weakness in her right arm, sensory deficits of the right side, significant difficulty with speech and dysarthria noted on arrival. CT brain and CTA head/neck were unremarkable. Pt given tenectaplase w/ improving NIH score shortly after administration. Pt admitted to ICU for furhter management. Patient referred to per stroke protocol, and per EMR, patient failed dysphagia due to hx of thyroid surgery with patient indicating she has a "hole"in her throat. BSE completed and recommended puree textures / thin liquids by tsp and MBSS during acute POC. Pt provided this RADIOSONDE SPECIALIST additional hx. Pt reports hx of thyroid cancer s/p thyroidectomy and chemoradiation treatment at [facility] in [place], [place] 25 years ago. PMH: class III obesity, hypertension, hyperlipidemia, type 2 diabetes mellitus, and hypothyroidism. Current Diet Ordered: Puree / Thin Dentition: Natural Teeth and Missing Teeth Mental Status: WNL (No apparent confusion during MBSS today. Some intermittent confusion during the acute stay.) Respiratory Status: Oxygenating on Room Air Penetration-Aspirat ion Scale Penetration-Aspirat ion Scale: OBJECTIVE ASSESSMENT OF SWALLOW FUNCTION (QUANTITATIVE ??? PER TRIAL): PENETRATION / ASPIRATION SCALE (WELSH): 1 = does not enter airway 2 = enters airway/above vocal folds/ejected 3 = enters airway/above vocal folds/not ejected 4 = enters airway/contacts vocal folds/ejected 5 = enters airway/contacts vocal folds/not ejected 6 = enters airway/below vocal folds/ejected 7 = enters airway/below vocal folds/not ejected despite effort 8 = enters airway/below vocal folds/no effort VIDEOFLOROSCOPIC SCALE SCORE (WELSH): Grade I = aspiration of material that has penetrated into the laryngeal vestibule, intact cough reflex Grade II = aspiration < 10 % of the bolus, intact cough reflex Grade III = aspiration of < 10 % of the bolus, reduced cough reflex or aspiration of > 10 % of the bolus, intact cough reflex Grade IV = aspiration of > 10 % of the bolus, reduced cough reflex Penetration-Aspirat ion Scale Score Thin Liquid via teaspoon: Result: 1= does not enter airway Thin Liquid via teaspoon Trial 2: Result: 2= enter airway/above vocal folds/ejected Thin Liquid via large single sip: cup: Result: 2= enter airway/above vocal folds/ejected Pudding via teaspoon: Result: 1= does not enter airway Comment: Esophageal screen - Mild retention in the upper esophagus, minimal retention in the lower esophagus. 1/2 Cookie: Result: 1= does not enter airway Thin Liquid via single sip: straw: Result: 2= enter airway/above vocal folds/ejected Thin Liquid via sequential sips:straw: Result: 2= enter airway/above vocal folds/ejected Oral Phase Labial Seal: No Labial Escape Tongue Control During Bolus Hold: Posterior escape of less than half of bolus Bolus Preparation/Mastica tion: Slow prolonged chewing/mashing with complete recollection Bolus Transport/Lingual Motion: Delayed initiation of tongue motion Oral Residue: Residue collection on oral structures Pharyngeal Phase Initiation of Pharyngeal Swallow: Bolus head at posterior laryngeal surgace of epiglottis Soft Palate Elevation: Escape to nasopharynx Laryngeal Elevation: Comp. Superior move thyroid cart w/comp. apprx arytenoid cart-epig pet Anterior Hyoid Excursion: Partial anterior movement Epiglottic Movement: Complete inversion Laryngeal Vestibule Closure at Height of Swallow: Incomplete; narrow column of air/contrast in laryngeal vestibule Pharyngeal Stripping Wave: Present - diminished Pharyngoesophageal Segment Opening: Complete distension and complete duration; no obstruction of flow Tongue Base Retraction: Narrow column of contrast between tongue base post. pharyngeal wall Pharyngeal Residue: Collection of residue within or on pharyngeal structures Esophageal Phase Esophageal Clearance: Esophageal retention Diagnosis/Impressio n Diagnosis: Mild oropharyngeal dysphagia R13.12 MBS Impressions: The oral phase is primarily marked by... -Minimal posterior loss of <1/4 thin liquid bolus to the posterior surface of the epiglottis prior to sw (more content not included)... Normal [facility] T4 Total, Thyroxinon T4 [Mass/Vol] 5.5 ug/dL Normal 4.8-13.9 [facility] Comment on above: Performed By: #### L 501.2300, L500.4050, L501.9520, L501.5200, L509.1000, L100.0100 #### [facility] [address] [place], [address] Basic Metabolic Profile (BMP )on 01-10-2025 BUN/CRE 14.9 RATIO Normal 01-01 [facility] Comment on above: Performed By: #### L 501.2300, L500.4050, L501.9520, L501.5200, L509.1000, L100.0100 #### [facility] [address] [place], [address] Calcium [Mass/Vol] 8.9 mg/dL Normal 7.6-11.0 [facility] Comment on above: Performed By: #### L 501.2300, L500.4050, L501.9520, L501.5200, L509.1000, L100.0100 #### [facility] [address] [place], [address] Chloride [Moles/Vol] 101 mmol/L Normal 98-[address] [facility] Comment on above: Performed By: #### L 501.2300, L500.4050, L501.9520, L501.5200, L509.1000, L100.0100 #### [facility] [address] [place], [address] CO2 [Moles/Vol] 32.1 mmol/L High 21.0-32.0 [facility] Comment on above: Performed By: #### L 501.2300, L500.4050, L501.9520, L501.5200, L509.1000, L100.0100 #### [facility] [address] [place], [address] Creatinine [Mass/Vol] 1.45 mg/dL High 0.70-1.20 [facility] Comment on above: Performed By: #### L 501.2300, L500.4050, L501.9520, L501.5200, L509.1000, L100.0100 #### [facility] [address] [place], [address] ECRCL 49.15 ml/min Low 50-250 [facility] Comment on above: Performed By: #### L 501.2300, L500.4050, L501.9520, L501.5200, L509.1000, L100.0100 #### [facility] [address] [place], [address] GAP 7 Normal 5-15 [facility] Comment on above: Performed By: #### L 501.2300, L500.4050, L501.9520, L501.5200, L509.1000, L100.0100 #### [facility] [address] [place], [address] GFR/1.73 sq M.predicted among non-blacks MDRD (S/P/Bld) [Vol rate/Area] 39 mL/min/{1.73_m2} Low >60 [facility] Comment on above: Result Comment: mL/m in/1.73m2 CKD-EPI Creatinine Equation (2020) Performed By: #### L 501.2300, L500.4050, L501.9520, L501.5200, L509.1000, L100.0100 #### [facility] [address] [place], [address] Glucose [Mass/Vol] 114 mg/dL High 70-99 [facility] Comment on above: Performed By: #### L 501.2300, L500.4050, L501.9520, L501.5200, L509.1000, L100.0100 #### [facility] [address] [place], [address] Potassium [Moles/Vol] 4.6 mmol/L Normal 3.3-5.1 [facility] Comment on above: Result Comment: Hemo lysis present, Results??could be affected. ?? Performed By: #### L 501.2300, L500.4050, L501.9520, L501.5200, L509.1000, L100.0100 #### [facility] [address] [place], [address] Sodium [Moles/Vol] 141 mmol/L Normal 133-145 [facility] Comment on above: Performed By: #### L 501.2300, L500.4050, L501.9520, L501.5200, L509.1000, L100.0100 #### [facility] [address] [place], [address] Urea nitrogen [Mass/Vol] 22 mg/dL High 4-19 [facility] Comment on above: Performed By: #### L 501.2300, L500.4050, L501.9520, L501.5200, L509.1000, L100.0100 #### [facility] [address] [place], [address] Bedside Glucoseon 01-10-2025 FINGERSTICK GLU 140 mg/dL High 74-106 [facility] Comment on above: Result Comment: DOM GEMENT OF PATIENT CARE PER NURSING PROTOCOL Performed By: #### L 501.2300, L500.4050, L501.9520, L501.5200, L509.1000, L100.0100 #### [facility] [address] [place], [address] FINGERSTICK GLU 80 mg/dL Normal 74-106 [facility] Comment on above: Result Comment: DOM GEMENT OF PATIENT CARE PER NURSING PROTOCOL Performed By: #### L 501.2300, L500.4050, L501.9520, L501.5200, L509.1000, L100.0100 #### [facility] [address] [place], [address] FINGERSTICK GLU 91 mg/dL Normal 74-106 [facility] Comment on above: Result Comment: DOM GEMENT OF PATIENT CARE PER NURSING PROTOCOL Performed By: #### L 501.2300, L500.4050, L501.9520, L501.5200, L509.1000, L100.0100 #### [facility] [address] [place], [address] FINGERSTICK GLU 79 mg/dL Normal 74-106 [facility] Comment on above: Result Comment: DOM GEMENT OF PATIENT CARE PER NURSING PROTOCOL Performed By: #### L 501.080 #### [facility] [address] [place], [address] CBC-Complete Blood Cnt No Di ffon 01-10-2025 Erythrocyte distribution width (RBC) [Ratio] 12.7 % Normal 11.6-14.6 [facility] Comment on above: Performed By: #### L 501.2300, L500.4050, L501.9520, L501.5200, L509.1000, L100.0100 #### [facility] [address] [place], [address] Hematocrit (Bld) [Volume fraction] 40.1 % Normal 37-47 [facility] Comment on above: Performed By: #### L 501.2300, L500.4050, L501.9520, L501.5200, L509.1000, L100.0100 #### [facility] [address] [place], [address] Hemoglobin (Bld) [Mass/Vol] 13.1 g/dL Normal 12.0-15.0 [facility] Comment on above: Performed By: #### L 501.2300, L500.4050, L501.9520, L501.5200, L509.1000, L100.0100 #### [facility] [address] [place], [address] MCH (RBC) [Entitic mass] 30.9 pg Normal 27.0-32.0 [facility] Comment on above: Performed By: #### L 501.2300, L500.4050, L501.9520, L501.5200, L509.1000, L100.0100 #### [facility] [address] [place], [address] MCHC (RBC) [Mass/Vol] 32.7 g/dL Normal 32-36 [facility] Comment on above: Performed By: #### L 501.2300, L500.4050, L501.9520, L501.5200, L509.1000, L100.0100 #### [facility] [address] [place], [address] MCV (RBC) [Entitic vol] 94.6 fL Normal 81-99 [facility] Comment on above: Performed By: #### L 501.2300, L500.4050, L501.9520, L501.5200, L509.1000, L100.0100 #### [facility] [address] [place], [address] Platelet mean volume (Bld) [Entitic vol] 10.6 fL Normal 6.2-12.0 [facility] Comment on above: Performed By: #### L 501.2300, L500.4050, L501.9520, L501.5200, L509.1000, L100.0100 #### [facility] [address] [place], [address] Platelets (Bld) [#/Vol] 227 10*3/uL Normal 150-450 [facility] Comment on above: Performed By: #### L 501.2300, L500.4050, L501.9520, L501.5200, L509.1000, L100.0100 #### [facility] [address] [place], [address] RBC (Bld) [#/Vol] 4.24 10*6/uL Normal 4.2-5.4 [facility] Comment on above: Performed By: #### L 501.2300, L500.4050, L501.9520, L501.5200, L509.1000, L100.0100 #### [facility] [address] [place], [address] RDW SD 43.8 fl Normal 35.1-43.9 [facility] Comment on above: Performed By: #### L 501.2300, L500.4050, L501.9520, L501.5200, L509.1000, L100.0100 #### [facility] [address] [place], [address] WBC (Bld) [#/Vol] 10.8 10*3/uL Normal 4.4-11.0 [facility] Comment on above: Performed By: #### L 501.2300, L500.4050, L501.9520, L501.5200, L509.1000, L100.0100 #### [facility] [address] [place], [address] Basic Metabolic Profile (BMP )on 01-09-2025 BUN/CRE 17.4 RATIO Normal - [facility] Comment on above: Performed By: #### L 501.2300, L500.4050, L501.9520, L501.5200, L509.1000, L100.0100 #### [facility] [address] [place], [address] Calcium [Mass/Vol] 9.7 mg/dL Normal 7.6-11.0 [facility] Comment on above: Performed By: #### L 501.2300, L500.4050, L501.9520, L501.5200, L509.1000, L100.0100 #### [facility] [address] [place], [address] Chloride [Moles/Vol] 98 mmol/L Normal 98-[address] [facility] Comment on above: Performed By: #### L 501.2300, L500.4050, L501.9520, L501.5200, L509.1000, L100.0100 #### [facility] [address] [place], [address] CO2 [Moles/Vol] 33.1 mmol/L High 21.0-32.0 [facility] Comment on above: Performed By: #### L 501.2300, L500.4050, L501.9520, L501.5200, L509.1000, L100.0100 #### [facility] [address] [place], [address] Creatinine [Mass/Vol] 1.36 mg/dL High 0.70-1.20 [facility] Comment on above: Performed By: #### L 501.2300, L500.4050, L501.9520, L501.5200, L509.1000, L100.0100 #### [facility] [address] [place], [address] ECRCL 53.11 ml/min Normal 50-250 [facility] Comment on above: Performed By: #### L 501.2300, L500.4050, L501.9520, L501.5200, L509.1000, L100.0100 #### [facility] [address] [place], [address] GAP 9 Normal 5-15 [facility] Comment on above: Performed By: #### L 501.2300, L500.4050, L501.9520, L501.5200, L509.1000, L100.0100 #### [facility] [address] [place], [address] GFR/1.73 sq M.predicted among non-blacks MDRD (S/P/Bld) [Vol rate/Area] 42 mL/min/{1.73_m2} Low >60 [facility] Comment on above: Result Comment: mL/m in/1.73m2 CKD-EPI Creatinine Equation (2020) Performed By: #### L 501.2300, L500.4050, L501.9520, L501.5200, L509.1000, L100.0100 #### [facility] [address] [place], [address] Glucose [Mass/Vol] 98 mg/dL Normal 70-99 [facility] Comment on above: Performed By: #### L 501.2300, L500.4050, L501.9520, L501.5200, L509.1000, L100.0100 #### [facility] [address] [place], [address] Potassium [Moles/Vol] 4.4 mmol/L Normal 3.3-5.1 [facility] Comment on above: Performed By: #### L 501.2300, L500.4050, L501.9520, L501.5200, L509.1000, L100.0100 #### [facility] [address] [place], [address] Sodium [Moles/Vol] 139 mmol/L Normal 133-145 [facility] Comment on above: Performed By: #### L 501.2300, L500.4050, L501.9520, L501.5200, L509.1000, L100.0100 #### [facility] [address] [place], [address] Urea nitrogen [Mass/Vol] 24 mg/dL High 4-19 [facility] Comment on above: Performed By: #### L 501.2300, L500.4050, L501.9520, L501.5200, L509.1000, L100.0100 #### [facility] [address] [place], [address] Brain without Contraston Brain without Contrast [facility] Imaging Services [address] [place] [address] Brain without Contrast MR#: [id number] Acct: [id number] Name: CARMEN TREJO Rep #: [id number] : 1955 F 69 From: Griffin mack MD PCP: Dr. Philip England MD Status: ADM IN Study: Brain without Contrast Date of Exam: 01/09/25 Exam# [id number] Ordering Dr: Odin Terrell DO PROCEDURE: BRAIN WITHOUT CONTRAST 01/10/2025 REASON FOR EXAM: ACUTE CVA 24HRS AFTER TENECTEPLASE ADMINISTRATION TECHNIQUE: Procedure Code: MRIBR Modality: MR Procedure: BRAIN WITHOUT CONTRAST Multiplanar and multisequence images were obtained. FINDINGS: BRAIN: No restricted diffusion to indicate acute infarction. No intracranial mass or hemorrhage. No midline shift or extra-axial fluid collection. No sulcal effacement. No cerebellar tonsillar ectopia. The central arterial and venous flow voids are patent. VENTRICLES: no hydrocephalus. ORBITS: the orbits are normal. SINUSES AND MASTOIDS: the sinuses and mastoid air cells are clear. BONES: No focal osseous lesion. MRI/Brain without Contrast IMPRESSION: No acute intracranial abnormality. No MRI evidence of acute ischemia. No intracranial hemorrhage. Reading Location: [facility] CC: Dr. Odin Terrell DO; Dr. Philip England MD Sales Promoter: Signed Normal [facility] CBC W/Diff, Automatedon 10-2 Absolute Lymph 2.82 X10 3/uL Normal 0.83-4.51 [facility] Comment on above: Performed By: #### L 501.2300, L500.4050, L501.9520, L501.5200, L509.1000, L100.0100 #### [facility] [address] [place], [address] Absolute Neut 8.2 X10 3/uL High 2.0-7.7 [facility] Comment on above: Performed By: #### L 501.2300, L500.4050, L501.9520, L501.5200, L509.1000, L100.0100 #### [facility] [address] [place], [address] Basophils/100 WBC (Bld) 0.8 % Normal 0-1 [facility] Comment on above: Performed By: #### L 501.2300, L500.4050, L501.9520, L501.5200, L509.1000, L100.0100 #### [facility] [address] [place], [address] Eosinophils/100 WBC (Bld) 2.8 % Normal 0-5 [facility] Comment on above: Performed By: #### L 501.2300, L500.4050, L501.9520, L501.5200, L509.1000, L100.0100 #### [facility] [address] [place], [address] Erythrocyte distribution width (RBC) [Ratio] 12.5 % Normal 11.6-14.6 [facility] Comment on above: Performed By: #### L 501.2300, L500.4050, L501.9520, L501.5200, L509.1000, L100.0100 #### [facility] [address] [place], [address] Hematocrit (Bld) [Volume fraction] 42.7 % Normal 37-47 [facility] Comment on above: Performed By: #### L 501.2300, L500.4050, L501.9520, L501.5200, L509.1000, L100.0100 #### [facility] [address] [place], [address] Hemoglobin (Bld) [Mass/Vol] 14.2 g/dL Normal 12.0-15.0 [facility] Comment on above: Performed By: #### L 501.2300, L500.4050, L501.9520, L501.5200, L509.1000, L100.0100 #### [facility] [address] [place], [address] IG% 0.200 Normal 0.0-0.9 [facility] Comment on above: Result Comment: IG% - Immature Granulocytes (promyelocytes, myelocytes and metamyelocytes) > 1% indicates that a LEFT SHIFT is Present. Performed By: #### L 501.2300, L500.4050, L501.9520, L501.5200, L509.1000, L100.0100 #### [facility] [address] [place], [address] Lymphocytes/100 WBC (Bld) 22.8 % Normal 19-41 [facility] Comment on above: Performed By: #### L 501.2300, L500.4050, L501.9520, L501.5200, L509.1000, L100.0100 #### [facility] [address] [place], [address] MCH (RBC) [Entitic mass] 31.2 pg Normal 27.0-32.0 [facility] Comment on above: Performed By: #### L 501.2300, L500.4050, L501.9520, L501.5200, L509.1000, L100.0100 #### [facility] [address] [place], [address] MCHC (RBC) [Mass/Vol] 33.3 g/dL Normal 32-36 [facility] Comment on above: Performed By: #### L 501.2300, L500.4050, L501.9520, L501.5200, L509.1000, L100.0100 #### [facility] [address] [place], [address] MCV (RBC) [Entitic vol] 93.8 fL Normal 81-99 [facility] Comment on above: Performed By: #### L 501.2300, L500.4050, L501.9520, L501.5200, L509.1000, L100.0100 #### [facility] [address] [place], [address] Monocytes/100 WBC (Bld) 7.0 % Normal 0-10 [facility] Comment on above: Performed By: #### L 501.2300, L500.4050, L501.9520, L501.5200, L509.1000, L100.0100 #### [facility] [address] [place], [address] Neutrophils/100 WBC (Bld) 66.4 % Normal 47-70 [facility] Comment on above: Performed By: #### L 501.2300, L500.4050, L501.9520, L501.5200, L509.1000, L100.0100 #### [facility] [address] [place], [address] Nucleated RBC (Bld) [#/Vol] 0 10*3/uL Normal 0-5 [facility] Comment on above: Performed By: #### L 501.2300, L500.4050, L501.9520, L501.5200, L509.1000, L100.0100 #### [facility] [address] [place], [address] Platelet mean volume (Bld) [Entitic vol] 10.6 fL Normal 6.2-12.0 [facility] Comment on above: Performed By: #### L 501.2300, L500.4050, L501.9520, L501.5200, L509.1000, L100.0100 #### [facility] [address] [place], [address] Platelets (Bld) [#/Vol] 246 10*3/uL Normal 150-450 [facility] Comment on above: Performed By: #### L 501.2300, L500.4050, L501.9520, L501.5200, L509.1000, L100.0100 #### [facility] [address] [place], [address] RBC (Bld) [#/Vol] 4.55 10*6/uL Normal 4.2-5.4 [facility] Comment on above: Performed By: #### L 501.2300, L500.4050, L501.9520, L501.5200, L509.1000, L100.0100 #### [facility] [address] [place], [address] RDW SD 43.0 fl Normal 35.1-43.9 [facility] Comment on above: Performed By: #### L 501.2300, L500.4050, L501.9520, L501.5200, L509.1000, L100.0100 #### [facility] [address] [place], [address] WBC (Bld) [#/Vol] 12.4 10*3/uL High 4.4-11.0 [facility] Comment on above: Performed By: #### L 501.2300, L500.4050, L501.9520, L501.5200, L509.1000, L100.0100 #### [facility] [address] [place], [address] Echo Complete W/ Contraston 01-09-2025 Echo Complete W/ Contrast [facility] [place] [address] Echo Complete W/ Contrast 01/10/25 0727 MR#: [id number] Acct: [id number] Name: CARMEN TREJO Rep #: [id number] : 1955 69 From: Emili Lazo MD Attending Dr: Dr. Ronnie Krishnamurthy DO Status: A DM IN Ordering Dr: Odin Terrell DO Date: 01/09/25 Location: ICU Sex: F C Admitted: 01/09/25 Reason For Study Reason For Study: TIA/CVA Procedure The study was technically difficult. Contrast injection was performed. Left Ventricle Normal size and thickness. The left ventricular ejection fraction is 65 %. Unable to assess diastolic function based on available data. Right Ventricle Normal right ventricle. Atria The left and right atria are normal. Bubble contrast suboptimal but appears negative for PFO/ASD. Mitral Valve Mild mitral valve annular calcification. Trivial mitral valve regurgitation. Tricuspid Valve The tricuspid valve is not well visualized. Aortic Valve Aortic sclerosis, no stenosis. Pulmonic Valve The pulmonic valve is not well visualized. Great Vessels Normal sized aortic root. Pericardium/Pleural No pericardial effusion. MMode/2D Measurements Calculations LVIDd: 4.1 cm IVSd: 1.1 cm Ao root diam: 3.3 cm LVIDs: 2.0 cm LVPWd: 1.1 cm FS: 50.3 % __ LAV(MOD-bp): 64.9 ml LVAd ap4: 24.6 cm2 LVAd ap2: 25.2 cm2 LAV(MOD-sp2): 51.7 ml LVLd ap4: 8.1 cm LVLd ap2: 8.0 cm LAV(MOD-sp4): 63.1 ml EDV(MOD-sp4): 60.5 ml EDV(MOD-sp2): 65.4 ml EDV(sp4-el): 63.8 ml EDV(sp2-el): 67.2 ml LVAs ap4: 15.3 cm2 LVAs ap2: 13.6 cm2 LVLs ap4: 7.0 cm LVLs ap2: 6.7 cm ESV(MOD-sp4): 27.8 ml ESV(MOD-sp2): 23.3 ml ESV(sp4-el): 28.3 ml ESV(sp2-el): 23.3 ml EF(MOD-sp4): 54.1 % EF(MOD-sp2): 64.4 % EF(sp4-el): 55.7 % __ SV(MOD-sp4): 32.7 ml SV(MOD-sp2): 42.1 ml SV(sp4-el): 35.5 ml __ LA dimension(2D): 3.9 cm LA A4 area: 21.7 cm2 RA A4 area: 17.7 cm2 __ TAPSE: 2.2 cm Time Measurements MV dec time: 0.21 sec Doppler Measurements Calculations MV E max murray: 83.1 cm/sec Lat Peak E' Murray: 8.6 cm/sec Med Peak E' Murray: 8.0 cm/sec MV A max murray: 93.9 cm/sec E/E' lat: 9.7 E/E' med: 10.4 MV E/A: 0.88 __ MV V2 max: 108.7 cm/sec MV P1/2t max murray: 89.7 cm/sec Ao V2 max: 138.1 cm/sec MV max P.7 mmHg MV P1/2t: 73.3 msec Ao max P.6 mmHg MV V2 mean: 56.4 cm/sec MV dec slope: 358.4 cm/sec2 Ao V2 mean: 95.3 cm/sec MV mean P.5 mmHg Ao mean P.1 mmHg MV V2 VTI: 33.7 cm MVA(P1/2t): 3.0 cm2 Ao V2 VTI: 33.0 cm AV (velocity ratio): 0.77 __ LV V1 max: 84.3 cm/sec PA V2 max: 96.6 cm/sec LV V1 max P.8 mmHg LV V1 mean P.8 mmHg LV V1 mean: 64.9 cm/sec LV V1 VTI: 25.5 cm ECHO/Echo Complete W/ Contrast Interpretation Summary The study was technically difficult. The left ventricular ejection fraction is 65 %. Mild mitral valve annular calcification. Trivial mitral valve regurgitation. Aortic sclerosis, no stenosis. Bubble contrast suboptimal but appears negative for PFO/ASD. __ Ordering Physician: Odin Terrell Referring Physician: Philip England Performed By: Madelaine Joshua, RAMONA, RVT 01/10/253 Date Emili Lazo MD CC: Dr. Odin Terrell DO; Dr. Philip England MD; Dr. Ronnie Krishnamurthy DO Date Dictated: 01/10/25726 Date Transcribed: 01/10/251422 Sales Promoter: Signed Normal [facility] Emergency Department Summary on 01-09-2025 Emergency Department Summary [facility] Medical Records Department [address] [place] [id number] Emergency Department Summary 01/09/25 MR#: [id number] Acct: [id number] Name: CARMEN TREJO Rep #: [id number] : 1955 69 From: Karl Greene MD PCP: Dr. Philip England MD Status:REG ER Location: ED HPI History of Present Illness Chief Complaint: Stroke Alert PFSH PFSH Home Medications ???Medication ???Instructions ???Recorded ???Last Taken ???Type atenolol 100 mg tablet 100 mg PO DAILY 01/09/25 Unknown H istory atorvastatin 40 mg tablet 40 mg PO DAILY 01/09/25 Unknown Hi story levothyroxine 137 mcg tablet 137 mcg PO DAILY 01/09/25 Unknown History lisinopril 5 mg tablet 2.5 mg PO DAILY 01/09/25 Unknown H istory semaglutide 1 mg/dose (4 mg/3 mL) 1.3333 mg subcut QWEEK 01/09/25 U nknown History subcutaneous pen injector (Ozempic) Allergy/AdvReac Type Severity Reaction Status Date / Time No Known Allergies Allergy Verified 01/09/25 15:01 Social History Smoking Status: Never smoker ROS ROS ED Review of Systems ROS Unobtainable: other Details: limited due to aphasia Eyes Eyes: Denies change in vision Cardiovascular Cardiovascular: Denies chest pain or palpitations Respiratory/Chest Respiratory/Chest: Denies dyspnea Musculoskeletal Musculoskeletal: Reports other Details: R knee pain due to fall 2 wks ago Neurologic Neurologic: Reports as per HPI, abnormal speech, headache(s), paresthesias RUE and RLE and weakness; Denies convulsions EXAM Physical Exam Const Vital Signs: 01/09/25 15:00 01/09/25 15:02 01/09/25 15:12 Temperature 98.6 F Temperature Source Oral Pulse Rate 57 L 50 L Respiratory Rate 16 16 Blood Pressure 160/57 H 160/57 H Blood Pressure Mean 91 91 Blood Pressure Source Blood Pressure Position Blood Pressure Location Pulse Ox 98 98 Oxygen Delivery Method Room Air Room Air Room Air 01/09/25 15:29 01/09/25 15:30 01/09/25 15:41 Temperature Temperature Source Pulse Rate 71 65 Respiratory Rate 18 17 Blood Pressure 185/165 H 160/73 H 160/73 H Blood Pressure Mean 171 102 102 Blood Pressure Source Monitor Blood Pressure Position Supine Blood Pressure Location Right Arm Pulse Ox 93 98 Oxygen Delivery Method Room Air 01/09/25 15:42 01/09/25 15:44 01/09/25 15:44 Temperature Temperature Source Pulse Rate 69 Respiratory Rate Blood Pressure 175/87 H 175/87 H 160/73 H Blood Pressure Mean 116 102 Blood Pressure Source Blood Pressure Position Blood Pressure Location Pulse Ox Oxygen Delivery Method 01/09/25 15:49 01/09/25 15:56 01/09/25 16:11 Temperature 98.6 F Temperature Source Oral Pulse Rate 65 Respiratory Rate 17 Blood Pressure 181/85 H 169/76 H Blood Pressure Mean 117 107 Blood Pressure Source Monitor Monitor Blood Pressure Position Supine Semi-Fowlers Blood Pressure Location Right Arm Right Arm Pulse Ox 96 Oxygen Delivery Method Room Air Room Air 01/09/25 16:26 Temperature Temperature Source Pulse Rate 65 Respiratory Rate 17 Blood Pressure 160/80 H Blood Pressure Mean 106 Blood Pressure Source Monitor Blood Pressure Position Semi-Fowlers Blood Pressure Location Right Arm Pulse Ox 94 Oxygen Delivery Method Room Air Positive well nourished, well developed and obese General Appearance ED: well developed and NAD Nutritional Appearance: obese HEENT Reports moist mucous membranes normocephalic and atraumatic Eyes PERRL and EOMs intact bilaterally Neck full ROM and supple Resp normal respiratory effort and clear to auscultation bilaterally Cardio regular rate, regular rhythm and no murmurs GI non-tender and non-distended Auscultation: normoactive bowel sounds Palpation: soft Back/Spine no CVA tenderness General Back: other FROM Extremity normal to inspection General Extremety ED: Negative for edema, pulses abnormal or tenderness General Extremity: Negative for edema or pulses abnormal Neuro Neuro Narrative: Expressive aphasia some dysarthria, significant weakness in the right arm none on the left, and decrease sensation throughout the right side. Sensorium / Orientation: awake and alert Skin no rashes or lesions noted and no wounds MDM MDM MDM Narrative Medical decision making narrative: Triage stroke alert was called, and I responded immediately, seeing the patient in triage. She is extremely weak in her right arm. She has sensory deficits throughout the right side, including the lower face, but no facial droop or problems with visual field, direct shock, or movements. She has significant difficulty with speech: she can produce some words but has expressive aphasia and s (more content not included)... Normal [facility]P Ex[facility] - Hospitalist [facility] Medical Records Department [address] [place] [address] H P Exam - Hospitalist 01/09/25 1629 MR#: [id number] Acct: [id number] Name: CARMEN TREJO Rep #: [id number] : 1955 69 From: Odin Terrell DO PCP: Dr. Philip England MD Status:ADM IN Location: ICU ICU01-1 HPI - General General Date of Admission: 01/09/25 Date of Service: 01/09/25 Chief Complaint: Strokelike symptoms HPI Ira TREJO, is a 69 F who presented to [facility] ED on 01/09/2025 with strokelike symptoms. Medical history significant for class III obesity, hypertension, hyperlipidemia, type 2 diabetes mellitus and hypothyroidism. She lives at home with her son, and her son and [id number] accompanied her to the ED today. Patient presented to the ED as a stroke alert. In the ED she was noted to have extreme weakness in her right arm, sensory deficits of the right side, significant difficulty with speech and dysarthria noted. NIHSS score of [address] brain and CTA head/neck were unremarkable. ED physician discussed with family and they opted for patient to receive tenecteplase. Tenecteplase was given at 1330. Was noted to have some improvement in her symptoms shortly afterwards with improving NIH score. Hospitalist was then contacted for admission. I saw the patient at bedside in the ED, son and [id number] were present. Patient was laying back in bed and in no acute distress. She was alert and able to make appropriate eye contact with me. However she was alert only to person and not place or time. She could not tell me where she was or what the month of the year was. She did have dysarthria noted and was not answering any other questions appropriately for me. She was also looking at her son and [id number] for help with answering questions. Son notes that patient had a mechanical fall at home approximately 2 weeks ago with some right knee pain noted. Imaging at that time was negative. She apparently was recently diagnosed with new onset migraines and has been taking a triptan medication as needed for this. She was in her normal state of health this morning, was up doing the dishes and cleaning the house. Will be admitted for further management. [facility] Home Medications ???Medication ???Instructions ???Recorded ???Last Taken ???Type atenolol 100 mg tablet 100 mg PO DAILY 01/09/25 Unknown H istory atorvastatin 40 mg tablet 40 mg PO DAILY 01/09/25 Unknown Hi story levothyroxine 137 mcg tablet 137 mcg PO DAILY 01/09/25 Unknown History lisinopril 5 mg tablet 2.5 mg PO DAILY 01/09/25 Unknown H istory semaglutide 1 mg/dose (4 mg/3 mL) 1.3333 mg subcut QWEEK 01/09/25 U nknown History subcutaneous pen injector (Ozempic) Allergy/AdvReac Type Severity Reaction Status Date / Time No Known Allergies Allergy Verified 01/09/25 15:01 Social History Smoking Status: Never smoker ROS Review of Systems ROS Unobtainable: due to mental status Vital Signs Vital Signs Vital Signs: 01/09/25 15:00 01/09/25 15:02 01/09/25 15:12 Temperature 98.6 F Temperature Source Oral Pulse Rate 57 L 50 L Respiratory Rate 16 16 Blood Pressure 160/57 H 160/57 H Blood Pressure Mean 91 91 Blood Pressure Source Blood Pressure Position Blood Pressure Location Pulse Ox 98 98 Oxygen Delivery Method Room Air Room Air Room Air 01/09/25 15:29 01/09/25 15:30 01/09/25 15:41 Temperature Temperature Source Pulse Rate 71 65 Respiratory Rate 18 17 Blood Pressure 185/165 H 160/73 H 160/73 H Blood Pressure Mean 171 102 102 Blood Pressure Source Monitor Blood Pressure Position Supine Blood Pressure Location Right Arm Pulse Ox 93 98 Oxygen Delivery Method Room Air 01/09/25 15:42 01/09/25 15:44 01/09/25 15:44 Temperature Temperature Source Pulse Rate 69 Respiratory Rate Blood Pressure 175/87 H 175/87 H 160/73 H Blood Pressure Mean 116 102 Blood Pressure Source Blood Pressure Position Blood Pressure Location Pulse Ox Oxygen Delivery Method 01/09/25 15:49 01/09/25 15:56 01/09/25 16:11 Temperature 98.6 F Temperature Source Oral Pulse Rate 65 Respiratory Rate 17 Blood Pressure 181/85 H 169/76 H Blood Pressure Mean 117 107 Blood Pressure Source Monitor Monitor Blood Pressure Position Supine Semi-Fowlers Blood Pressure Location Right Arm Right Arm Pulse Ox 96 Oxygen Delivery Method Room Air Room Air Weight Weight: 123.5 kg Body Mass Index (BMI) 43.9 Physical Exam Const alert and no apparent distress Constitutional Narrative: Elderly female, class III obesity, mildly fatigued appearing, alert and making appropriate eye contact but not answering answering (more content not included)... Normal [facility] Hemoglobin A1con 01-09-2025 HbA1c (Bld) [Mass fraction] 6.4 % High <=5.6 [facility] Comment on above: Order Comment: Order Date: 06/22/24 Order Info: [id number] - CMP Order Info: 2777-1 - PHOS Order Info: [id number] - MG Order Info: 3016-3 - TSH Result Comment: Norm al < 5.7 % Prediabetic 5.7 - 6.4 % Diabetic >or= 6.5 % Please note range changes. Performed By: #### L 501.2300, L500.4050, L501.9520, L501.5200, L509.1000, L100.0100 #### [facility] [address] [place], [address] L501.4021on 01-09-2025 Trop T High Sen 18 ng/L High <=14 [facility] Comment on above: Result Comment: Hemo lysis present, Results??could be affected. ?? Performed By: #### L 501.2300, L500.4050, L501.9520, L501.5200, L509.1000, L100.0100 #### [facility] [address] [place], [address] Lipid Profileon 01-09-2025 CHOL:HDL 2.00 Normal [facility] Comment on above: Order Comment: Comme nts: Fasting lipid profile Performed By: #### L 500.4100 #### [facility] [address] [place], [address] Cholesterol [Mass/Vol] 120 mg/dL Normal <=200 [facility] Comment on above: Order Comment: Comme nts: Fasting lipid profile Result Comment: Chol esterol level, Desirable <200 mg/dL Borderline high cholesterol 200-239 mg/dL High cholesterol >=240 mg/dL Recommendations of the NCEP Adult Treatment Panel for the following risk-cutoff thresholds for the [place] population. Performed By: #### L 500.4100 #### [facility] [address] [place], [address] Cholesterol in HDL [Mass/Vol] 60 mg/dL Normal [facility] Comment on above: Order Comment: Comme nts: Fasting lipid profile Result Comment: Flavia onal Cholesterol Education Program (NCEP) guidelines: <40 mg/dL: Low HDL-cholesterol (major risk factor for CHD) >= 60 mg/dL: High HDL-cholesterol (negative risk factor for CHD) HDL-cholesterol is affected by a number of factors, e.g. smoking, exercise, hormones, sex and age. Performed By: #### L 500.4100 #### [facility] [address] [place], [address] Cholesterol in LDL [Mass/Vol] 43 mg/dL Normal [facility] Comment on above: Order Comment: Comme nts: Fasting lipid profile Result Comment: Bord dmlfuv=249-545 mg/dL Higher Gehx=345 mg/dL or greater Pike Equation 2020 for LDL-C Performed By: #### L 500.4100 #### [facility] [address] [place], [address] Cholesterol in VLDL [Mass/Vol] 18 mg/dL Normal 5-40 [facility] Comment on above: Order Comment: Comme nts: Fasting lipid profile Performed By: #### L 500.4100 #### [facility] [address] [place], [address] Triglyceride [Mass/Vol] 90 mg/dL Normal [facility] Comment on above: Order Comment: Comme nts: Fasting lipid profile Result Comment: The drugs N-Acetylcysteine and Metamizole may falsely depress this assay. Normal range: <150 mg/dL Borderline High: 150-199 mg/dL High: 200-499 mg/dL Very High: >500 mg/dL Performed By: #### L 500.4100 #### [facility] [address] [place], [address] Partial Thromboplast Timeon 01-09-2025 aPTT Coag (Bld) [Time] 26.8 s Normal 24.1-36.2 [facility] Comment on above: Performed By: #### L 501.2300, L500.4050, L501.9520, L501.5200, L509.1000, L100.0100 #### [facility] [address] [place], [address] Prothrombin Time w/INRon INR Coag (PPP) [Relative time] 1.0 {INR} Normal [facility] Comment on above: Performed By: #### L 501.2300, L500.4050, L501.9520, L501.5200, L509.1000, L100.0100 #### [facility] [address] [place], [address] PT Coag (PPP) [Time] 13.6 s Normal 11.7-14.[address] [facility] Comment on above: Performed By: #### L 501.2300, L500.4050, L501.9520, L501.5200, L509.1000, L100.0100 #### [facility] [address] [place], [address] STROKE Brain/Head without Co nton 01-09-2025 STROKE Brain/Head without Cont [facility] Imaging Services [address] [place] [address] STROKE Brain/Head without Cont MR#: [id number] Acct: [id number] Name: CARMEN TREJO Rep #: [id number] : 1955 F 69 From: Hi Holland MD PCP: Dr. Philip England MD Status: REG ER Study: STROKE Brain/Head without Cont Date of Exam: 1 Exam# [id number] Ordering Dr: Karl Greene MD PROCEDURE: STROKE BRAIN/HEAD WITHOUT CONT 01/09/2025 REASON FOR EXAM: NEURO DEFICIT, ACUTE, STROKE SUSPECTED TECHNIQUE: Procedure Code: CTBR.ST Modality: CT Procedure: STROKE BRAIN/HEAD WITHOUT CONT Coronal and Sagittal reconstruction series were provided. One or more dose reduction techniques were used (e.g., Automated exposure control, adjustment of the mA and/or kV according to patient size, use of iterative reconstruction technique. RADIATION DOSE SUMMARY: CTDlvol: 45 mGy DLP: 812 mGycm COMPARISON: None FINDINGS: Brain: There is no evidence of hemorrhage, acute ischemia or mass. No extra-axial fluid collection, midline shift or mass effect. CSF Spaces: Mild generalized cerebral atrophy Sinuses/Mastoids: Clear Bones: No fracture CT/STROKE Brain/Head without Cont IMPRESSION: 1. No acute intracranial abnormality. Stroke Alert: No acute intracranial abnormality The critical findings in the findings and impression above were relayed directly by me by telephone to Karl Greene on 01/09/2025 at 3:24 pm with readback verification. Reading Location: [facility] CC: Dr. Karl Greene MD; Dr. Philip England MD Sales Promoter: Signed Normal [facility] STROKE CTA Head AND Neck W/C onon 01-09-2025 STROKE CTA Head AND Neck W/Con [facility] Imaging Services [address] [place] [id number] STROKE CTA Head AND Neck W/Con MR#: [id number] Acct: [id number] Name: CARMEN TREJO Rep #: [id number] : 1955 F 69 From: Hi Holland MD PCP: Dr. Philip England MD Status: REG ER Study: STROKE CTA Head AND Neck W/Con Date of Exam: Exam# [id number] Ordering Dr: Karl Greene MD PROCEDURE: STROKE CTA HEAD AND NECK W/CON 01/09/2025 REASON FOR EXAM: NEURO DEFICIT, ACUTE, STROKE SUSPECTED TECHNIQUE: Procedure Code: CTCTA.ST.HN Modality: CT Procedure: STROKE CTA HEAD AND NECK W/CON Multiplanar Sagittal and Coronal images were obtained. 3D post processing was performed CONTRAST: Isovue 370 VOLUME: 100 mL One or more dose reduction techniques were used (e.g., Automated exposure control, adjustment of the mA and/or kV according to patient size, use of iterative reconstruction technique). RADIATION DOSE SUMMARY: CTDlvol: 45 mGy DLP: 872 mGycm COMPARISON: Head CT of the same day FINDINGS: Aortic Arch: Normal size and branching pattern. Mild atherosclerotic plaque. Brachiocephalic and Subclavians: Mild atherosclerotic plaque without significant stenosis. RIGHT Carotid: Right CCA: Minimal atherosclerotic plaque. Right ICA: Mild mural plaque at the origin. Mild plaque at the cavernous and supraclinoid portion. Maximum stenosis (NASCET): <10 % Right ECA: Unremarkable. LEFT Carotid: Left CCA: Minimal atherosclerotic plaque. Left ICA: Mild mural plaque at the origin. Mild plaque at the cavernous and supraclinoid portion. Maximum stenosis (NASCET): <10 % Left ECA: Unremarkable. Vertebrals: Right is slightly dominant. Both are widely patent. RIGHT Vertebral: Minimal plaque of the origin. LEFT Vertebral: Unremarkable. Anatomy: [place] anatomy is normal. Posterior communicating arteries are absent. Aneurysm or avm: No intracranial aneurysms or large vascular malformations are identified. Anterior cerebral arteries: Unremarkable Middle cerebral arteries: Unremarkable. Basilar artery: Unremarkable. Posterior cerebral arteries: Unremarkable. Other major branches of the posterior circulation: Unremarkable. Major venous structures: Unremarkable. Other findings: Neck: No lymphadenopathy. Lungs: Lung apices are clear. Bones: Bones are unremarkable. CT/STROKE CTA Head AND Neck W/Con IMPRESSION: 1. No large vessel occlusion. 2. No aneurysm or stenosis. Reading Location: [facility] CC: Dr. Karl Greene MD; Dr. Philip England MD Sales Promoter: Signed Normal [facility] Thyroid Stim Hormone (TSH)on 01-09-2025 TSH 8.680 uIU/mL High 0.300-4.200 [facility] Comment on above: Order Comment: Order Date: 06/22/24 Order Info: [id number] - CMP Order Info: [id number] - PHOS Order Info: [id number] - MG Order Info: 3016-3 - TSH Performed By: #### L 501.2300, L500.4050, L501.9520, L501.5200, L509.1000, L100.0100 #### [facility] [address] [place], [address] Troponin T HS 2 HRon 025 Trop T High Sen 18 ng/L High <=14 [facility] Comment on above: Performed By: #### L 501.2300, L500.4050, L501.9520, L501.5200, L509.1000, L100.0100 #### [facility] [address] [facility] [place], [address] Troponin T HS 4 HRon 025 Trop T High Sen Normal <=14 [facility] Comment on above: Result Comment: Canc elled via OM: MD Ordered Performed By: #### L 501.2300, L500.4050, L501.9520, L501.5200, L509.1000, L100.0100 #### [facility] [address] [place], [address] Foot min 3 Viewson 5 Foot min 3 Views [facility] Imaging Services [address] [place] [address] Foot min 3 Views MR#: [id number] Acct: [id number] Name: CARMEN TREJO Rep #: [id number] : 1955 F 69 From: Adan Broussard MD PCP: Dr. Philip England MD Status: REG CLI Study: Foot min 3 Views Date of Exam: 01/02/25 Exam# [id number] Ordering Dr: Philip England MD PROCEDURE: FOOT MIN 3 VIEWS 01/02/2025 REASON FOR EXAM: PAIN TECHNIQUE: Procedure Code: RADFO Modality: DX Procedure: FOOT MIN 3 VIEWS Laterality: Right COMPARISON: None FINDINGS: Bones: No demonstrated fracture or suspicious osseous lesion. The PIP region of the 2nd toe is not visualized due to a toe ring Joints: Mild narrowing in the distal joints Soft tissues: No suspicious soft tissue swelling or foreign body Other: Calcaneal heel spurs RAD/Foot min 3 Views IMPRESSION: Mild, age consistent changes, no acute findings Reading Location: [id number] CC: Dr. Philip England MD Sales Promoter: Signed Normal [facility] Knee 4 or More Viewson 01-02 Knee 4 or More Views [facility] Imaging Services [address] [place] [address] Knee 4 or More Views MR#: [id number] Acct: [id number] Name: CARMEN TREJO Rep #: [id number] : 1955 F 69 From: David Brady MD PCP: Dr. Philip England MD Status: REG CLI Study: Knee 4 or More Views Date of Exam: 01/02/25 Exam# [id number] Ordering Dr: Philip England MD PROCEDURE: KNEE 4 OR MORE VIEWS 01/02/2025 REASON FOR EXAM: PAIN TECHNIQUE: Procedure Code: RADKN Modality: DX Procedure: KNEE 4 OR MORE VIEWS Laterality: Right COMPARISON: None FINDINGS: There is no evidence of fracture or dislocation. There is moderate arthritis of the patellofemoral joint. There is mild arthritis of the medial joint space compartment of the knee. 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 There is no knee joint effusion. The periarticular soft tissues are normal. 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 Other findings as noted. Reading Location: [place] [address] CC: Dr. Philip England MD Sales Promoter: Signed Normal [facility] Absolute neutrophil countOrd ered By: Philip England on 06-23-2024 Neutrophils (Bld) [#/Vol] 6.1 10*3/uL 2.0-7.7 [facility] Anion gap in Serum or Plasma Ordered By: Philip England on 06-23-2024 Anion gap [Moles/Vol] 13 mmol/L - [facility] BUN/creatinine ratioOrdered By: Philip England on 06-23-2024 Urea nitrogen/Creatinine [Mass ratio] 12.5 mg/mg 10- [facility] Basophil percentageOrdered B y: Philip England on 06-23-2024 Basophils/100 WBC (Bld) 1.1 % High 0-1 [facility] Bilirubin, totalOrdered By: Asifkrish Holmke on 06-23-2024 Bilirubin [Mass/Vol] 0.48 mg/dL 0.00-1.[address] [facility] CBC W/Diff, Automatedon 06-13 Absolute Lymph 2.41 X10 3/uL Normal 0.83-4.51 [facility] Comment on above: Order Comment: Order Date: 06/22/24 Order Info: 0184-1 - CBCD Performed By: #### L 501.2300, L500.4050, L501.9520, L501.5200, L509.1000, L100.0100 #### [facility] [address] [place], [address] Absolute Neut 6.1 X10 3/uL Normal 2.0-7.7 [facility] Comment on above: Order Comment: Order Date: 06/22/24 Order Info: 0184- - CBCD Performed By: #### L 501.2300, L500.4050, L501.9520, L501.5200, L509.1000, L100.0100 #### [facility] [address] [place], [address] Basophils/100 WBC (Bld) 1.1 % High 0-1 [facility] Comment on above: Order Comment: Order Date: 06/22/24 Order Info: 0184- - CBCD Performed By: #### L 501.2300, L500.4050, L501.9520, L501.5200, L509.1000, L100.0100 #### [facility] [address] [place], [address] Eosinophils/100 WBC (Bld) 3.5 % Normal 0-5 [facility] Comment on above: Order Comment: Order Date: 06/22/24 Order Info: 0184-1 - CBCD Performed By: #### L 501.2300, L500.4050, L501.9520, L501.5200, L509.1000, L100.0100 #### [facility] [address] [place], [address] Erythrocyte distribution width (RBC) [Ratio] 12.5 % Normal 11.6-14.6 [facility] Comment on above: Order Comment: Order Date: 06/22/24 Order Info: 0184-1 - CBCD Performed By: #### L 501.2300, L500.4050, L501.9520, L501.5200, L509.1000, L100.0100 #### [facility] [address] [place], [address] Hematocrit (Bld) [Volume fraction] 40.7 % Normal 37-47 [facility] Comment on above: Order Comment: Order Date: 06/22/24 Order Info: 0184-1 - CBCD Performed By: #### L 501.2300, L500.4050, L501.9520, L501.5200, L509.1000, L100.0100 #### [facility] [address] [place], [address] Hemoglobin (Bld) [Mass/Vol] 12.9 g/dL Normal 12.0-15.0 [facility] Comment on above: Order Comment: Order Date: 06/22/24 Order Info: 0184-1 - CBCD Performed By: #### L 501.2300, L500.4050, L501.9520, L501.5200, L509.1000, L100.0100 #### [facility] [address] [place], [address] IG% 0.200 Normal 0.0-0.9 [facility] Comment on above: Order Comment: Order Date: 06/22/24 Order Info: 0184-1 - CBCD Result Comment: IG% - Immature Granulocytes (promyelocytes, myelocytes and metamyelocytes) > 1% indicates that a LEFT SHIFT is Present. Performed By: #### L 501.2300, L500.4050, L501.9520, L501.5200, L509.1000, L100.0100 #### [facility] [address] [place], [address] Lymphocytes/100 WBC (Bld) 25.4 % Normal 19-41 [facility] Comment on above: Order Comment: Order Date: 06/22/24 Order Info: 0184-1 - CBCD Performed By: #### L 501.2300, L500.4050, L501.9520, L501.5200, L509.1000, L100.0100 #### [facility] [address] [place], [address] MCH (RBC) [Entitic mass] 30.7 pg Normal 27.0-32.0 [facility] Comment on above: Order Comment: Order Date: 06/22/24 Order Info: 0184- - CBCD Performed By: #### L 501.2300, L500.4050, L501.9520, L501.5200, L509.1000, L100.0100 #### [facility] [address] [place], [address] MCHC (RBC) [Mass/Vol] 31.7 g/dL Low 32-36 [facility] Comment on above: Order Comment: Order Date: 06/22/24 Order Info: 0184- - CBCD Performed By: #### L 501.2300, L500.4050, L501.9520, L501.5200, L509.1000, L100.0100 #### [facility] [address] [place], [address] MCV (RBC) [Entitic vol] 96.9 fL Normal 81-99 [facility] Comment on above: Order Comment: Order Date: 06/22/24 Order Info: 0184-1 - CBCD Performed By: #### L 501.2300, L500.4050, L501.9520, L501.5200, L509.1000, L100.0100 #### [facility] [address] [place], [address] Monocytes/100 WBC (Bld) 5.7 % Normal 0-10 [facility] Comment on above: Order Comment: Order Date: 06/22/24 Order Info: 0184-1 - CBCD Performed By: #### L 501.2300, L500.4050, L501.9520, L501.5200, L509.1000, L100.0100 #### [facility] [address] [place], [address] Neutrophils/100 WBC (Bld) 64.1 % Normal 47-70 [facility] Comment on above: Order Comment: Order Date: 06/22/24 Order Info: 0184- - CBCD Performed By: #### L 501.2300, L500.4050, L501.9520, L501.5200, L509.1000, L100.0100 #### [facility] [address] [place], [address] Nucleated RBC (Bld) [#/Vol] 0 10*3/uL Normal 0-5 [facility] Comment on above: Order Comment: Order Date: 06/22/24 Order Info: 0184- - CBCD Performed By: #### L 501.2300, L500.4050, L501.9520, L501.5200, L509.1000, L100.0100 #### [facility] [address] [place], [address] Platelet mean volume (Bld) [Entitic vol] 10.9 fL Normal 6.2-12.0 [facility] Comment on above: Order Comment: Order Date: 06/22/24 Order Info: 0184-1 - CBCD Performed By: #### L 501.2300, L500.4050, L501.9520, L501.5200, L509.1000, L100.0100 #### [facility] [address] [place], [address] Platelets (Bld) [#/Vol] 281 10*3/uL Normal 150-450 [facility] Comment on above: Order Comment: Order Date: 06/22/24 Order Info: 0184-1 - CBCD Performed By: #### L 501.2300, L500.4050, L501.9520, L501.5200, L509.1000, L100.0100 #### [facility] [address] [place], [address] RBC (Bld) [#/Vol] 4.20 10*6/uL Normal 4.2-5.4 [facility] Comment on above: Order Comment: Order Date: 06/22/24 Order Info: 0184-1 - CBCD Performed By: #### L 501.2300, L500.4050, L501.9520, L501.5200, L509.1000, L100.0100 #### [facility] [address] [place], [address] RDW SD 44.5 fl High 35.1-43.9 [facility] Comment on above: Order Comment: Order Date: 06/22/24 Order Info: 0184-1 - CBCD Performed By: #### L 501.2300, L500.4050, L501.9520, L501.5200, L509.1000, L100.0100 #### [facility] [address] [place], [address] WBC (Bld) [#/Vol] 9.5 10*3/uL Normal 4.4-11.0 [facility] Comment on above: Order Comment: Order Date: 06/22/24 Order Info: 0184-1 - CBCD Performed By: #### L 501.2300, L500.4050, L501.9520, L501.5200, L509.1000, L100.0100 #### [facility] [address] [place], [place], [id number] Carbon dioxide, total [Moles /volume] in Central venous bloodOrdered By: Philip England on 06-23-2024 CO2 [Moles/Vol] 30.2 mmol/L 21.0-32.0 [facility] Chloride assayOrdered By: Claire England on 06-23-2024 Chloride [Moles/Vol] 100 mmol/L 98-[address] [facility] Comprehensive Metabolic Prof ilon 06-23-2024 Albumin [Mass/Vol] 4.0 g/dL Normal 3.4-4.8 [facility] Comment on above: Order Comment: Order Date: 06/22/24 Order Info: 0786-1 - CMP Order Info: 2777-1 - PHOS Order Info: [id number] - MG Order Info: 3016-3 - TSH Performed By: #### L 501.2300, L500.4050, L501.9520, L501.5200, L509.1000, L100.0100 #### [facility] [address] [place], [address] Albumin/Globulin [Mass ratio] 1.2 {ratio} Normal 0.9-2.4 [facility] Comment on above: Order Comment: Order Date: 06/22/24 Order Info: 0786-1 - CMP Order Info: 2777-1 - PHOS Order Info: [id number] - MG Order Info: 3016-3 - TSH Performed By: #### L 501.2300, L500.4050, L501.9520, L501.5200, L509.1000, L100.0100 #### [facility] [address] [place], [address] ALK PHOS 74 U/L Normal 35-104 [facility] Comment on above: Order Comment: Order Date: 06/22/24 Order Info: 0786-1 - CMP Order Info: 2777-1 - PHOS Order Info: [id number] - MG Order Info: 3016-3 - TSH Performed By: #### L 501.2300, L500.4050, L501.9520, L501.5200, L509.1000, L100.0100 #### [facility] [address] [place], [address] ALT [Catalytic activity/Vol] 18 U/L Normal <=34 [facility] Comment on above: Order Comment: Order Date: 06/22/24 Order Info: 86-1 - CMP Order Info: 2777-1 - PHOS Order Info: [id number] - MG Order Info: 3016-3 - TSH Performed By: #### L 501.2300, L500.4050, L501.9520, L501.5200, L509.1000, L100.0100 #### [facility] [address] [place], [address] AST [Catalytic activity/Vol] 25 U/L Normal <=31 [facility] Comment on above: Order Comment: Order Date: 06/22/24 Order Info: 785- - CMP Order Info: [id number] - PHOS Order Info: [id number] - MG Order Info: 3016-3 - TSH Performed By: #### L 501.2300, L500.4050, L501.9520, L501.5200, L509.1000, L100.0100 #### [facility] [address] [place], [address] Bilirubin [Mass/Vol] 0.48 mg/dL Normal 0.00-1.[address] [facility] Comment on above: Order Comment: Order Date: 06/22/24 Order Info: 785-1 - CMP Order Info: 2777-1 - PHOS Order Info: [id number] - MG Order Info: 3016-3 - TSH Performed By: #### L 501.2300, L500.4050, L501.9520, L501.5200, L509.1000, L100.0100 #### [facility] [address] [place], [address] BUN/CRE 12.5 RATIO Normal 10-20 [facility] Comment on above: Order Comment: Order Date: 06/22/24 Order Info: 86-1 - CMP Order Info: 7-1 - PHOS Order Info: [id number] - MG Order Info: 3016-3 - TSH Performed By: #### L 501.2300, L500.4050, L501.9520, L501.5200, L509.1000, L100.0100 #### [facility] [address] [place], [address] Calcium [Mass/Vol] 9.7 mg/dL Normal 7.6-11.0 [facility] Comment on above: Order Comment: Order Date: 06/22/24 Order Info: 86-1 - CMP Order Info: 2776-1 - PHOS Order Info: [id number] - MG Order Info: 3016-3 - TSH Performed By: #### L 501.2300, L500.4050, L501.9520, L501.5200, L509.1000, L100.0100 #### [facility] [address] [place], [address] Chloride [Moles/Vol] 100 mmol/L Normal 98-[address] [facility] Comment on above: Order Comment: Order Date: 06/22/24 Order Info: 0786-1 - CMP Order Info: [id number] - PHOS Order Info: [id number] - MG Order Info: 3016-3 - TSH Performed By: #### L 501.2300, L500.4050, L501.9520, L501.5200, L509.1000, L100.0100 #### [facility] [address] [place], [address] CO2 [Moles/Vol] 30.2 mmol/L Normal 21.0-32.0 [facility] Comment on above: Order Comment: Order Date: 06/22/24 Order Info: 86-1 - CMP Order Info: [id number] - PHOS Order Info: [id number] - MG Order Info: 3016-3 - TSH Performed By: #### L 501.2300, L500.4050, L501.9520, L501.5200, L509.1000, L100.0100 #### [facility] [address] [place], [address] Creatinine [Mass/Vol] 1.63 mg/dL High 0.70-1.20 [facility] Comment on above: Order Comment: Order Date: 06/22/24 Order Info: 86-1 - CMP Order Info: [id number] - PHOS Order Info: [id number] - MG Order Info: 3015-3 - TSH Performed By: #### L 501.2300, L500.4050, L501.9520, L501.5200, L509.1000, L100.0100 #### [facility] [address] [place], [address] GAP 13 Normal 5-15 [facility] Comment on above: Order Comment: Order Date: 06/22/24 Order Info: 785- - CMP Order Info: [id number] - PHOS Order Info: [id number] - MG Order Info: 3 - TSH Performed By: #### L 501.2300, L500.4050, L501.9520, L501.5200, L509.1000, L100.0100 #### [facility] [address] [place], [address] GFR/1.73 sq M.predicted among non-blacks MDRD (S/P/Bld) [Vol rate/Area] 34 mL/min/{1.73_m2} Low >60 [facility] Comment on above: Order Comment: Order Date: 06/22/24 Order Info: [id number] - CMP Order Info: [id number] - PHOS Order Info: [id number] - MG Order Info: 3016-3 - TSH Result Comment: mL/m in/1.73m2 CKD-EPI Creatinine Equation (2020) Performed By: #### L 501.2300, L500.4050, L501.9520, L501.5200, L509.1000, L100.0100 #### [facility] [address] [place], [address] Globulin (S) [Mass/Vol] 3.4 g/dL Normal 2.2-4.2 [facility] Comment on above: Order Comment: Order Date: 06/22/24 Order Info: 86-1 - CMP Order Info: [id number] - PHOS Order Info: [id number] - MG Order Info: 3016-3 - TSH Performed By: #### L 501.2300, L500.4050, L501.9520, L501.5200, L509.1000, L100.0100 #### [facility] [address] [place], [address] Glucose [Mass/Vol] 112 mg/dL High 70-99 [facility] Comment on above: Order Comment: Order Date: 06/22/24 Order Info: [id number] - CMP Order Info: 7-1 - PHOS Order Info: [id number] - MG Order Info: 3016-3 - TSH Performed By: #### L 501.2300, L500.4050, L501.9520, L501.5200, L509.1000, L100.0100 #### [facility] [address] [place], [address] Potassium [Moles/Vol] 4.1 mmol/L Normal 3.3-5.1 [facility] Comment on above: Order Comment: Order Date: 06/22/24 Order Info: 86-1 - CMP Order Info: [id number] - PHOS Order Info: [id number] - MG Order Info: 3016-3 - TSH Performed By: #### L 501.2300, L500.4050, L501.9520, L501.5200, L509.1000, L100.0100 #### [facility] [address] [place], [address] Sodium [Moles/Vol] 144 mmol/L Normal 133-145 [facility] Comment on above: Order Comment: Order Date: 06/22/24 Order Info: 86-1 - CMP Order Info: 1 - PHOS Order Info: [id number] - MG Order Info: 3015-3 - TSH Performed By: #### L 501.2300, L500.4050, L501.9520, L501.5200, L509.1000, L100.0100 #### [facility] [address] [place], [address] T PROT 7.4 g/dL Normal 5.9-8.4 [facility] Comment on above: Order Comment: Order Date: 06/22/24 Order Info: 785-1 - CMP Order Info: [id number] - PHOS Order Info: [id number] - MG Order Info: 3 - TSH Performed By: #### L 501.2300, L500.4050, L501.9520, L501.5200, L509.1000, L100.0100 #### [facility] [address] [place], [address] Urea nitrogen [Mass/Vol] 20 mg/dL High 4-19 [facility] Comment on above: Order Comment: Order Date: 06/22/24 Order Info: 785- - CMP Order Info: [id number] - PHOS Order Info: [id number] - MG Order Info: 3015-3 - TSH Performed By: #### L 501.2300, L500.4050, L501.9520, L501.5200, L509.1000, L100.0100 #### [facility] [address] [place], [address] Eosinophil percentageOrdered By: Philip England on 06-23-2024 Eosinophils/100 WBC (Bld) 3.5 % 0-5 [facility] Erythrocyte distribution wid th (RBC) [Ratio]Ordered By: Philip England on 06-23-2024 Erythrocyte distribution width (RBC) [Entitic vol] 44.5 fL High 35.1-43.9 [facility] Erythrocyte distribution wid th ratioOrdered By: Philip England on 06-23-2024 Erythrocyte distribution width (RBC) [Ratio] 12.5 % 11.6-14.6 [facility] GFR/1.73 sq M.predicted mayela g non-blacks MDRD (S/P/Bld) [Vol rate/Area]Ordered By: Philip England on 06-23-2024 Estimated GFR (MDRD) Non-Af Amer 34 Low >60 [facility] Comment on above: mL/min/1.73m2 CKD-EP I Creatinine Equation (2020) Hematocrit Auto (Bld) [Volum e fraction]Ordered By: Philip England on 06-23-2024 Hematocrit (Bld) [Volume fraction] 40.7 % 37-47 [facility] Hemoglobin measurementOrdere d By: Philip [place] on 06-23-2024 Hemoglobin (Bld) [Mass/Vol] 12.9 g/dL 12.0-15.0 [facility] Immature granulocytes/100 WB C Auto (Bld)Ordered By: Philip England on 06-23-2024 Immature granulocytes/100 WBC (Bld) 0.200 % 0.0-0.9 [facility] Comment on above: IG% - Immature Granu locytes (promyelocytes, myelocytes and metamyelocytes) > 1% indicates that a LEFT SHIFT is Present. Laboratory - Chemistry and C hemistry - challengeOrdered By: Philip England on 06-23-2024 AST [Catalytic activity/Vol] 25 U/L <32 [facility] Lymphocytes Auto (Unsp spec) [#/Vol]Ordered By: Philip [place] on 06-23-2024 Lymphocytes (Bld) [#/Vol] 2.41 10*3/uL 0.83-4.5 1 [facility] Lymphocytes/100 WBC Auto (Un sp spec)Ordered By: Phliip [place] on 06-23-2024 Lymphocytes/100 WBC (Bld) 25.4 % 19-41 [facility] MCV (mean corpuscular volume ) determinationOrdered By: [facility] [place] on 06-23-2024 MCV (RBC) [Entitic vol] 96.9 fL 81-99 [facility] Magnesiumon 06-23-2024 Magnesium [Mass/Vol] 1.4 mg/dL Low 1.5-2.[address] [facility] Comment on above: Order Comment: Order Date: 06/22/24 Order Info: [id number] - CMP Order Info: [id number] - PHOS Order Info: [id number] - MG Order Info: [id number] - TSH Performed By: #### L 501.2300, L500.4050, L501.9520, L501.5200, L509.1000, L100.0100 #### [facility] [address] [place], [place], [address] Magnesium (Unsp spec) [Mass/ Vol]Ordered By: Philip England on 06-23-2024 Magnesium [Mass/Vol] 1.4 mg/dL Low 1.5-2.[address] [facility] Mean corpuscular hemoglobin (MCH) determinationOrdered By: Philip England on 06-23-2024 MCH (RBC) [Entitic mass] 30.7 pg 27.0-32.0 [facility] Mean corpuscular hemoglobin concentration (MCHC) determinationOrdered By: Philip England on 06-23-2024 MCHC (RBC) [Mass/Vol] 31.7 g/dL Low 32-36 [facility] Mean platelet volume determi nationOrdered By: Philip England on 06-23-2024 Platelet mean volume (Bld) [Entitic vol] 10.9 fL 6.2-12.0 [facility] Monocyte percentageOrdered B y: Philip England on 06-23-2024 Monocytes/100 WBC (Bld) 5.7 % 0-10 [facility] Neutrophil percentageOrdered By: Philip England on 06-23-2024 Neutrophils/100 WBC (Bld) 64.1 % 47-70 [facility] Nucleated red blood cell per centageOrdered By: Philip England on 06-23-2024 Nucleated RBC/100 WBC (Bld) [Ratio] 0 % 0-5 [facility] PTH intactOrdered By: Philip England on 06-23-2024 Parathyroid Hormone (Intact) 19 pg/mL 11-61 [facility] PTHINon 06-23-2024 PTH 19 pg/mL Normal [facility] Comment on above: Order Comment: Order Date: 06/22/24 Order Info: [id number] - PTHIN Performed By: #### L 501.2300, L500.4050, L501.9520, L501.5200, L509.1000, L100.0100 #### [facility] [address] [place], [address] Phosphoruson 06-23-2024 Phosphate [Mass/Vol] 3.5 mg/dL Normal 2.7-4.[address] [facility] Comment on above: Order Comment: Order Date: 06/22/24 Order Info: [id number] - CMP Order Info: [id number] - PHOS Order Info: [id number] - MG Order Info: [id number] - TSH Performed By: #### L 501.2300, L500.4050, L501.9520, L501.5200, L509.1000, L100.0100 #### [facility] [address] [place], [address] Platelet countOrdered By: Claire [place] on 06-23-2024 Platelets (Bld) [#/Vol] 281 10*3/uL 150-450 [facility] Potassium (Unsp spec) [Mass/ Vol]Ordered By: Philip England on 06-23-2024 Potassium [Moles/Vol] 4.1 mmol/L 3.3-5.1 [facility] RBC Auto (Bld) [#/Vol]Ordere d By: Philip England on 06-23-2024 RBC (Bld) [#/Vol] 4.20 10*6/uL 4.2-5.4 [facility] Serum creatinine measurement (mass/volume)Ordered By: Philip England on 06-23-2024 Creatinine [Mass/Vol] 1.63 mg/dL High 0.70-1.20 [facility] Serum globulin measurementOr dered By: Philip England on 06-23-2024 Globulin (S) [Mass/Vol] 3.4 g/dL 2.2-4.2 [facility] Serum glucose measurement (m ass/volume)Ordered By: Philip England on 06-23-2024 Glucose [Mass/Vol] 112 mg/dL High 70-99 [facility] Serum or plasma alanine mccallum otransferase (ALT) measurementOrdered By: Philip England on 06-23-2024 ALT [Catalytic activity/Vol] 18 U/L <35 [facility] Serum or plasma albumin vicky urement (mass/volume)Ordered By: Philip England on 06-23-2024 Albumin [Mass/Vol] 4.0 g/dL 3.4-4.8 [facility] Serum or plasma albumin/glob ulin mass ratioOrdered By: Philip England on 06-23-2024 Albumin/Globulin [Mass ratio] 1.2 {ratio} 0.9-2.4 [facility] Serum or plasma alkaline ghada sphatase measurementOrdered By: Philip England on 06-23-2024 ALP [Catalytic activity/Vol] 74 U/L 35-104 [facility] Serum or plasma calcium vicky urement (mass/volume)Ordered By: Philip England on 06-23-2024 Calcium [Mass/Vol] 9.7 mg/dL 7.6-11.0 [facility] Serum or plasma urea nitroge n measurement (mass/volume)Ordered By: Philip England on 06-23-2024 Urea nitrogen [Mass/Vol] 20 mg/dL High 4-19 [facility] Serum phosphorus measurement Ordered By: Philip England on 06-23-2024 Phosphorus Level 3.5 mg/dL 2.7-4.5 [facility] Sodium levelOrdered By: Asif England on 06-23-2024 Sodium [Moles/Vol] 144 mmol/L 133-145 [facility] TSH DL <= 0.005 mIU/L QnOrde red By: Philip England on 06-23-2024 Thyroid Stimulating Hormone (TSH) 6.330 uIU/mL High 0.300-4.200 [facility] Thyroid Stim Hormone (TSH)on 06-23-2024 TSH 6.330 uIU/mL High 0.300-4.200 [facility] Comment on above: Order Comment: Order Date: 06/22/24 Order Info: [id number] - CMP Order Info: [id number] - PHOS Order Info: - MG Order Info: [id number] - TSH Performed By: #### L 501.2300, L500.4050, L501.9520, L501.5200, L509.1000, L100.0100 #### [facility] [address] [place], [place], [id number] Total proteinOrdered By: Jackie England on 06-23-2024 Protein [Mass/Vol] 7.4 g/dL 5.9-8.4 [facility] Vitamin D, 25-hydroxyOrdered By: Philip England on 06-23-2024 Vitamin D 25-Hydroxy 77.0 ng/mL 30-[address] [facility] Comment on above: Vitamin D StatusDefi ciency: <20 ng/mL (50nmol/L)Insufficiency: 20-30 ng/mL (50-75 nmol/L)Sufficiency: 30-100 ng/mL (75-250 nmol/L)Toxicity: >100 ng/mL (>250 nmol/L) Vitamin D,25 Hydroxyon 06-23 Vitamin D 25-OH 77.0 ng/mL Normal 30-100 [facility] Comment on above: Order Comment: Order Date: 06/22/24 Order Info: [id number] - CMP Order Info: [id number] - PHOS Order Info: - MG Order Info: [id number] - TSH Result Comment: Leslie min D Status Deficiency: <20 ng/mL (50nmol/L) Insufficiency: 20-30 ng/mL (50-75 nmol/L) Sufficiency: 30-100 ng/mL (75-250 nmol/L) Toxicity: >100 ng/mL (>250 nmol/L) Performed By: #### L 501.2300, L500.4050, L501.9520, L501.5200, L509.1000, L100.0100 #### [facility] [address] [place], [address] White blood cell (WBC) count Ordered By: Philip England on 06-23-2024 WBC (Bld) [#/Vol] 9.5 10*3/uL 4.4-11.0 [facility] Automated erythrocytes count in urine sediment (number/area)Ordered By: Hammad Gore on 03-20-2024 RBC Auto (Urine sed) [#/Area] None /HPF [facility] Automated leukocytes count i n urine sediment (number/area)Ordered By: Hammad Gore on 03-20-2024 WBC Auto (Urine sed) [#/Area] 0-5 /HPF [facility] Automated squamous epithelia l cells count in urine sediment (number/area)Ordered By: Hammad Gore on 03-20-2024 Epithelial cells.squamous Auto (Urine sed) [#/Area] 0-5 /HPF [facility] Basic Metabolic,Non-Fastingo n 03-20-2024 Anion gap [Moles/Vol] 8 mmol/L Normal 4-12 [facility] Comment on above: Performed By: #### L 500.0950 #### Main Laboratory ([facility]) [address] [place] [address] Josh Carrillo MD Calcium [Mass/Vol] 10.00 mg/dL Normal 8.8-10.5 [facility] Comment on above: Performed By: #### L 500.0950 #### Main Laboratory ([facility]) [address] [place] [address] Josh Carrillo MD Chloride [Moles/Vol] 98 mmol/L Low 101-111 [facility] Comment on above: Performed By: #### L 500.0950 #### Main Laboratory ([facility]) [address] [place] [address] Josh Carrillo MD CO2 [Moles/Vol] 31 mmol/L Normal 21-32 [facility] Comment on above: Performed By: #### L 500.0950 #### Main Laboratory ([facility]) [address] [place] [address] Josh Carrillo MD Creatinine [Mass/Vol] 1.80 mg/dL High 0.60-1.30 [facility] Comment on above: Performed By: #### L 500.0950 #### Main Laboratory ([facility]) [address] [place] [address] Josh Carrillo MD GFR Calculation 28 Low [facility] Comment on above: Result Comment: [facility] Kidney Disease stages by NKDF Stage eGFR I >90 II 60-89 III 30-59 IV 15-29 V <15 or dialysis AGE(years) AVERAGE GFR 60-69 85 ml/min/1.73 square meters Note:This result is normalized to 1.73 square meter body surface area. Height and weight are not factored. Performed By: #### L 500.0950 #### Main Laboratory ([facility]) [address] [place] [address] Josh Carrillo MD Glucose [Mass/Vol] 97 mg/dL Normal 70-110 [facility] Comment on above: Result Comment: *Thi s reference range applies to fasting specimens only. Performed By: #### L 500.0950 #### Main Laboratory ([facility]) [address] [place] [address] Josh Carrillo MD Potassium [Moles/Vol] 4.8 mmol/L Normal 3.6-5.0 [facility] Comment on above: Performed By: #### L 500.0950 #### Main Laboratory ([facility]) [address] [place] [address] Josh Carrillo MD Sodium [Moles/Vol] 137 mmol/L Normal 135-145 [facility] Comment on above: Performed By: #### L 500.0950 #### Main Laboratory ([facility]) [address] [place] [address] Josh Carrillo MD Urea nitrogen [Mass/Vol] 30 mg/dL High 7-20 [facility] Comment on above: Performed By: #### L 500.0950 #### Main Laboratory ([facility]) [address] [place] [address] Josh Carrillo MD Bilirubin Auto test strip Ql (U)Ordered By: Hammad Gore on 03-20-2024 Bilirubin Ql (U) Negative Negative [facility] Blood anion gapOrdered By: Jackie Gore on 03-20-2024 Anion gap (Bld) [Moles/Vol] 8 mmol/L 4-12 [facility] Blood hematocrit (volume fra ction)Ordered By: Hammad Gore on 03-20-2024 Hematocrit (Bld) [Volume fraction] 39.7 % 35.0-44.0 [facility] Blood hemoglobin measurement (mass/volume)Ordered By: Hammad Gore on 03-20-2024 Hemoglobin (Bld) [Mass/Vol] 13.6 g/dL 12.0-15.0 [facility] CBC Without Differentialon 0 03-20-2024 Erythrocyte distribution width (RBC) [Ratio] 12.6 % Normal 12.0-16.0 [facility] Comment on above: Performed By: #### L 500.0950 #### Main Laboratory ([facility]) [address] [place] [address] Josh Carrillo MD Hematocrit (Bld) [Volume fraction] 39.7 % Normal 35.0-44.0 [facility] Comment on above: Performed By: #### L 500.0950 #### Main Laboratory ([facility]) [address] [place] [address] Josh Carrillo MD Hemoglobin (Bld) [Mass/Vol] 13.6 g/dL Normal 12.0-15.0 [facility] Comment on above: Performed By: #### L 500.0950 #### Main Laboratory ([facility]) [address] [place] [address] Josh Carrillo MD MCH (RBC) [Entitic mass] 32.6 pg Normal 27.5-33.0 [facility] Comment on above: Performed By: #### L 500.0950 #### Main Laboratory ([facility]) [address] [place] [address] Josh Carrillo MD MCHC (RBC) [Mass/Vol] 34.1 g/dL Normal 33.0-36.0 [facility] Comment on above: Performed By: #### L 500.0950 #### Main Laboratory ([facility]) [address] [place] [address] Josh Carrillo MD MCV 95.6 CU JAIME Normal 80-97 [facility] Comment on above: Performed By: #### L 500.0950 #### Main Laboratory ([facility]) [address] [place], [place] [address] Josh Carrillo MD Platelet Count 261 th/cmm Normal 150-400 [facility] Comment on above: Performed By: #### L 500.0950 #### Main Laboratory ([facility]) [address] [place], [place] [address] Josh Carrillo MD RBC 4.16 mil/cmm Normal 4.00-5.10 [facility] Comment on above: Performed By: #### L 500.0950 #### Main Laboratory ([facility]) [address] [place], [place] [address] Josh Carrillo MD WBC 10.6 th/cmm High 4.4-10.5 [facility] Comment on above: Performed By: #### L 500.0950 #### Main Laboratory ([facility]) [address] [place] [facility] Josh Carrillo MD Complete urinalysis with ref tammi to cultureOrdered By: Hammad Gore on 01-06-2025 Urinalysis complete W Reflex Culture panel (U) No [facility] Comment on above: Culture not done per lab protocol Erythrocyte distribution wid th ratioOrdered By: Hammad Gore on 03-20-2024 Erythrocyte distribution width (RBC) [Ratio] 12.6 % 12.0-16.0 [facility] Glomerular filtration rate ( GFR) estimation/1.73 sq m using serum, plasma, or whole bOrdered By: Hammad Gore on 03-20-2024 GFR/1.73 sq M.predicted (S/P/Bld) [Vol rate/Area] 28 mL/min Low >60 [facility] Comment on above: AGE(years) AVERAGE G FR 60-69 85 ml/min/1.73 square metersNote:This result is normalized to 1.73 square meter body surface area. Height and weight are not factored.Chronic Kidney Disease stages by NKDFStage eGFR I >90 II 60-89 III 30-59 IV 15-29 V <15 or dialysis Ketones Auto test strip (U) [Mass/Vol]Ordered By: Hammad Gore on 03-20-2024 Ketones (U) [Mass/Vol] Negative Negative [facility] MCH Auto (RBC) [Entitic mass ]Ordered By: Hammad Gore on 03-20-2024 MCH (RBC) [Entitic mass] 32.6 pg 27.5-33.0 [facility] MCHC Auto (RBC) [Mass/Vol]Or dered By: Hammad Gore on 03-20-2024 MCHC (RBC) [Mass/Vol] 34.1 g/dL 33.0-36.0 [facility] MCV Auto (RBC) [Entitic vol] Ordered By: Hammad Gore on 03-20-2024 MCV (RBC) [Entitic vol] 95.6 CU JAIME 80-97 [facility] Magnesiumon 03-20-2024 Magnesium [Mass/Vol] 1.6 mg/dL Low 1.8-2.5 [facility] Comment on above: Performed By: #### L 857.0950 #### Main Laboratory ([facility]) [address] [place] [address] Josh Carrillo MD Microalb/Creat Ratio,Irving Ur on 03-20-2024 Creatinine (U) [Mass/Vol] 71.3 mg/dL Normal [facility] Comment on above: Performed By: #### L 500.0950, L500.0960 #### Main Laboratory ([facility]) [address] [place] [address] Josh Carrillo MD Microalbumin, Random Urine 8.7 mg/L Normal [facility] Comment on above: Performed By: #### L 500.0950, L500.0960 #### Main Laboratory ([facility]) [address] [place] [address] Josh Carrillo MD Microalbumin/Creatinine Ratio 12.2 mg/Gm Normal 0-30.0 [facility] Comment on above: Performed By: #### L 500.0950, L500.0960 #### Main Laboratory ([facility]) [address] [place] [address] Josh Carrillo MD Parathyroid Hormone,Intacton 03-20-2024 Parathyroid Hormone,Intact 27.5 pg/mL Normal 12.0-88.0 [facility] Comment on above: Performed By: #### L 500.0950 #### Main Laboratory ([facility]) [address] [place] [address] Josh Carrillo MD Phosphoruson 03-20-2024 Phosphate [Mass/Vol] 3.7 mg/dL Normal 2.4-4.7 [facility] Comment on above: Performed By: #### L 500.0950 #### Main Laboratory ([facility]) [address] [place] [address] Josh Carrillo MD Platelets Auto (Bld) [#/Vol] Ordered By: Hammad Gore on 03-20-2024 Platelets (Bld) [#/Vol] 261 th/cmm 150-400 L [facility] Protein Auto test strip (U) [Mass/Vol]Ordered By: Hammad Gore on 03-20-2024 Protein (U) [Mass/Vol] Negative Negative [facility] RBC Auto (Bld) [#/Vol]Ordere d By: Hammad Gore on 03-20-2024 RBC (Bld) [#/Vol] 4.16 mil/cmm 4.00-5.10 [facility] Serum or plasma calcium vicky urement (mass/volume)Ordered By: Hammad Sofía on 03-20-2024 Calcium [Mass/Vol] 10.00 mg/dL 8.8-10.5 [facility] Serum or plasma chloride gerhard surement (moles/volume)Ordered By: Hammad Sofía on 03-20-2024 Chloride [Moles/Vol] 98 mmol/L Low 101-111 [facility] Serum or plasma creatinine m easurement (mass/volume)Ordered By: Hammad Gore on 03-20-2024 Creatinine [Mass/Vol] 1.80 mg/dL High 0.60-1.30 [facility] Serum or plasma glucose vicky urement (mass/volume)Ordered By: Hammad Gore on 03-20-2024 Glucose [Mass/Vol] 97 mg/dL 70-110 [facility] Comment on above: *This reference rang e applies to fasting specimens only. Serum or plasma intact parat hyroid hormone (iPTH) measurement (mass/volume)Ordered By: Hammad Gore on 03-20-2024 Parathyrin.intact [Mass/Vol] 27.5 pg/mL 12.0-88.0 [facility] Serum or plasma magnesium me asurement (mass/volume)Ordered By: Hammad Sofía on 03-20-2024 Magnesium [Mass/Vol] 1.6 mg/dL Low 1.8-2.5 [facility] Serum or plasma phosphate me asurement (mass/volume)Ordered By: [facility] Sofía on 03-20-2024 Phosphate [Mass/Vol] 3.7 mg/dL 2.4-4.7 [facility] Serum or plasma potassium me asurement (moles/volume)Ordered By: Hammad Sofía on 03-20-2024 Potassium [Moles/Vol] 4.8 mmol/L 3.6-5.0 [facility] Serum or plasma sodium measu rement (moles/volume)Ordered By: [facility] Ferjhony on 03-20-2024 Sodium [Moles/Vol] 137 mmol/L 135-145 [facility] Serum or plasma total carbon dioxide measurement (moles/volume)Ordered By: [facility] Sofía on 03-20-2024 CO2 [Moles/Vol] 31 mmol/L 21-32 [facility] Serum or plasma total combin ed vitamin D and metabolites measurement (mass/volume)Ordered By: [facility] Ferjhony on 03-20-2024 Vitamin D+Metabolites [Mass/Vol] 88.50 ng/mL 30.00-100.00 [facility] Comment on above: Optimal values are e stablished by the Clinical Guidelines Subcommittee of the Endocrine Society Task Force. (Journal of Clinical Endocrinology & Metabolism,2011;96)Status Vitamin D Concentration Range------- Deficient <20Insufficient 20 - 30Sufficient 30 - 100 Serum or plasma urea nitroge n measurement (mass/volume)Ordered By: [facility] on 03-20-2024 Urea nitrogen [Mass/Vol] 30 mg/dL High 7-20 [facility] Serum or plasma uric acid me asurement (mass/volume)Ordered By: Hammad Sofía on 03-20-2024 Urate [Mass/Vol] 8.8 mg/dL High 2.6-8.0 [facility] Specific gravity Auto test s trip (U) [Rel density]Ordered By: [facility] on 03-20-2024 Specific gravity (U) [Rel density] 1.007 1.000-1.035 [facility] Uric Acid Serumon 03-20-2024 Urate [Mass/Vol] 8.8 mg/dL High 2.6-8.0 [facility] Comment on above: Performed By: #### L 500.0950 #### Main Laboratory ([facility]) [address] [place], [facility] Josh Carrillo MD Urinalysis w Micro Rflx Cult on 03-20-2024 Appearance (U) Clear Normal [facility] Comment on above: Order Comment: Urine Source Urine, Clean Catch Performed By: #### L 300.3000 #### Main Laboratory ([facility]) [address] [place], [place] [address] Josh Carrillo MD Bilirubin Ql (U) Negative Normal Negative [facility] Comment on above: Order Comment: Urine Source Urine, Clean Catch Performed By: #### L 300.3000 #### Main Laboratory ([facility]) [address] [place], [place] [address] Josh Carrillo MD Color (U) Colorless Normal [facility] Comment on above: Order Comment: Urine Source Urine, Clean Catch Performed By: #### L 300.3000 #### Main Laboratory ([facility]) [address] [place], [facility] Josh Carrillo MD Epi,Squamous 0-5 Normal [facility] Comment on above: Order Comment: Urine Source Urine, Clean Catch Performed By: #### L 300.3000 #### Main Laboratory ([facility]) [address] [place], [facility] Josh Carrillo MD Glucose Ql (U) Negative Normal Negative [facility] Comment on above: Order Comment: Urine Source Urine, Clean Catch Performed By: #### L 300.3000 #### Main Laboratory ([facility]) [address] [place] [address] Josh Carrillo MD Ketones Ql (U) Negative Normal Negative [facility] Comment on above: Order Comment: Urine Source Urine, Clean Catch Performed By: #### L 300.3000 #### Main Laboratory ([facility]) [address] [place], [place] [address] Josh Carrillo MD Leukocytes Negative Normal Negative [facility] Comment on above: Order Comment: Urine Source Urine, Clean Catch Performed By: #### L 300.3000 #### Main Laboratory ([facility]) [address] [place], [place] [address] Josh Carrillo MD Nitrite Ql (U) Negative Normal Negative [facility] Comment on above: Order Comment: Urine Source Urine, Clean Catch Performed By: #### L 300.3000 #### Main Laboratory ([facility]) [address] [place], [place] [address] Josh Carrillo MD pH (U) 6.5 [pH] Normal 5.0-8.0 [facility] Comment on above: Order Comment: Urine Source Urine, Clean Catch Performed By: #### L 300.3000 #### Main Laboratory ([facility]) [address] [place], [place] [address] Josh Carrillo MD Protein Ql (U) Negative Normal Negative [facility] Comment on above: Order Comment: Urine Source Urine, Clean Catch Performed By: #### L 300.3000 #### Main Laboratory ([facility]) [address] [place], [place] [address] Josh Carrillo MD RBC None Normal [facility] Comment on above: Order Comment: Urine Source Urine, Clean Catch Performed By: #### L 300.3000 #### Main Laboratory ([facility]) [address] [place], [place] [address] Josh Carrillo MD Specific gravity (U) [Rel density] 1.007 Normal 1.000-1.035 [facility] Comment on above: Order Comment: Urine Source Urine, Clean Catch Performed By: #### L 300.3000 #### Main Laboratory ([facility]) [address] [place], [place] [address] Josh Carrillo MD UA Reflex Culture No Normal [facility] Comment on above: Order Comment: Urine Source Urine, Clean Catch Result Comment: Cult ure not done per lab protocol Performed By: #### L 300.3000 #### Main Laboratory ([facility]) [address] [place] [address] Josh Carrillo MD Urobilinogen (U) [Mass/Vol] mg/dL Normal 0.2-1.0 [facility] Comment on above: Order Comment: Urine Source Urine, Clean Catch Performed By: #### L 300.3000 #### Main Laboratory ([facility]) [address] [place] [address] Josh Carrillo MD WBC 0-[address] [facility] Comment on above: Order Comment: Urine Source Urine, Clean Catch Performed By: #### L 300.3000 #### Main Laboratory ([facility]) [address] [place] [address] Josh Carrillo MD Urine Protein/Creatinine Rat ioon 03-20-2024 Protein (U) [Mass/Vol] 9.3 mg/dL Normal [facility] Comment on above: Performed By: #### L 500.0950, L500.0960 #### Main Laboratory ([facility]) [address] [place] [address] Josh Carrillo MD Urine Protein/Creatinine Ratio 0.13 g/1.73m2 Normal <0.15 [facility] Comment on above: Performed By: #### L 500.0950, L500.0960 #### Main Laboratory ([facility]) [address] [place] [address] Josh Carrillo MD Urine albumin measurement [facility] detection limit of 20 mg/L or less (mass/volume)Ordered By: Hammad Gore on 03-20-2024 Albumin DL <= 20 mg/L (U) [Mass/Vol] 8.7 mg/L [facility] Urine appearance determinati onOrdered By: Hammad Gore on 03-20-2024 Appearance (U) Clear [facility] Urine color determinationOrd ered By: Hammad Gore on 03-20-2024 Color (U) Colorless [facility] Urine creatinine measurement (mass/volume)Ordered By: Hammad oGre on 03-20-2024 Creatinine (U) [Mass/Vol] 71.3 mg/dL [facility] Urine erythrocytes detection Ordered By: Hammad Gore on 03-20-2024 RBC Ql (U) Negative Negative [facility] Urine glucose measurement by automated test strip (mass/volume)Ordered By: Hammad Gore on 03-20-2024 Glucose Auto test strip (U) [Mass/Vol] Negative Negative [facility] Urine leukocyte esterase det ection by automated test stripOrdered By: Hammad Sofía on 03-20-2024 Leukocyte esterase Auto test strip Ql (U) Negative Negative [facility] Urine microalbumin/creatinin e mass ratioOrdered By: Hammad Gore on 03-20-2024 Albumin/Creatinine DL <= 20 mg/L (U) [Mass ratio] 12.2 mg/Gm 0-30.0 [facility] Urine nitrite detection by a utomated test stripOrdered By: Hammad Gore on 03-20-2024 Nitrite Auto test strip Ql (U) Negative Negative [facility] Urine protein measurement (m ass/volume)Ordered By: Hammad Gore on 03-20-2024 Protein (U) [Mass/Vol] 9.3 mg/dL [facility] Urine protein/creatinine mas s ratioOrdered By: Hammad Sofía on 03-20-2024 Protein/Creatinine (U) [Mass ratio] 0.13 g/1.73m2 <0.15 [facility] Urobilinogen Test strip Qn ( U)Ordered By: Hammad Gore on 03-20-2024 Urobilinogen Qn (U) <2.0 mg/dL 0.2-1.0 [facility] Vitamin D,25-hydroxy (Total) on 03-20-2024 25(OH) Vitamin D,Total 88.50 ng/mL Normal 30.00-100.00 [facility] Comment on above: Result Comment: Opti mal values are established by the Clinical Guidelines Subcommittee of the Endocrine Society Task Force. (Journal of Clinical Endocrinology & Metabolism,2011;96) Status Vitamin D Concentration Range ------- Deficient <20 Insufficient 20 - 30 Sufficient 30 - 100 Performed By: #### L 500.0950 #### Main Laboratory ([facility]) [address] [place] [address] Josh Carrillo MD WBC Auto (Bld) [#/Vol]Ordere d By: Hammad Gore on 03-20-2024 WBC (Bld) [#/Vol] 10.6 th/cmm High 4.4-10.5 [facility] pH Auto test strip (U)Ordere d By: Hammad Gore on 03-20-2024 pH (U) 6.5 [pH] 5.0-8.0 [facility] US Renal Bilateralon [address] [facility] Radiology Department Patient: CARMEN TREJO [address] : 1955 Sex: [place] [address] Location: [facility] [phone] [facility] #: [id number] [id number] Ordering Phys: Hammad Gore MD Exam Date: 03/20/24 Exam: US US Renal Bilateral Result: See Report EXAM: US RETROPERITONEAL LIMITED, RENAL CLINICAL INDICATION: CKD STAGE 4 TECHNIQUE: Real-time limited ultrasound of the retroperitoneum with image documentation. COMPARISON: No relevant prior studies available. FINDINGS: RIGHT KIDNEY: 4.3 x 5.5 x 10.7 cm. Resistive index measures 0.58. Renal cortex measures 10 mm. No stones. No hydronephrosis. LEFT KIDNEY: 5.0 x 4.7 x 11.4 cm. Resistive index measures 0.59. Renal cortex measures 9.4 mm. Simple well-defined anechoic cysts of the left kidney measure up to 1.4 cm. No required imaging follow-up needed given high likelihood of benign nature. No stones. No hydronephrosis. BLADDER: Urinary bladder is poorly evaluated given lack of distention. Ureteral jets are confirmed. IMPRESSION: No hydronephrosis. cc: Hammad Gore MD; Kev Bass MD Dictated by: Curt Borges MD on 03/20/241040 Transcribed by: Curt Bogres on 03/20/241042 Report Signed by: Curt Borges MD on 03/20/[address] [facility] Basic Metabolic,Non-Fastingo n 02-17-2024 Anion gap [Moles/Vol] 6 mmol/L Normal 4-12 [facility] Comment on above: Performed By: #### L 500.0950 #### Main Laboratory ([facility]) [address] [place] [address] Josh Carrillo MD Calcium [Mass/Vol] 10.20 mg/dL Normal 8.8-10.5 [facility] Comment on above: Performed By: #### L 500.0950 #### Main Laboratory ([facility]) [address] [place], [place] [address] Josh Carrillo MD Chloride [Moles/Vol] 102 mmol/L Normal 101-111 [facility] Comment on above: Performed By: #### L 500.0950 #### Main Laboratory ([facility]) [address] [place] [address] Josh Carrillo MD CO2 [Moles/Vol] 33 mmol/L High 21-32 [facility] Comment on above: Performed By: #### L 500.0950 #### Main Laboratory ([facility]) [address] [place] [id number] Josh Carrillo MD Creatinine [Mass/Vol] 1.79 mg/dL High 0.60-1.30 [facility] Comment on above: Performed By: #### L 500.0950 #### Main Laboratory ([facility]) [address] [place] [id number] Josh Carrillo MD GFR Calculation 28 Low [facility] Comment on above: Result Comment: Header Dock antonella Kidney Disease stages by NKDF Stage eGFR I >90 II 60-89 III 30-59 IV 15-29 V <15 or dialysis AGE(years) AVERAGE GFR 60-69 85 ml/min/1.73 square meters Note:This result is normalized to 1.73 square meter body surface area. Height and weight are not factored. Performed By: #### L 500.0950 #### Main Laboratory ([facility]) [address] [place] [address] Josh Carrillo MD Glucose [Mass/Vol] 133 mg/dL High 70-110 [facility] Comment on above: Performed By: #### L 500.0950 #### Main Laboratory ([facility]) [address] [place] [address] Josh Carrillo MD Potassium [Moles/Vol] 4.4 mmol/L Normal 3.6-5.0 [facility] Comment on above: Performed By: #### L 500.0950 #### Main Laboratory ([facility]) [address] [place] [address] Josh Carrillo MD Sodium [Moles/Vol] 141 mmol/L Normal 135-145 [facility] Comment on above: Performed By: #### L 500.0950 #### Main Laboratory ([facility]) [facility] [place] [address] Josh Carrillo MD Urea nitrogen [Mass/Vol] 41 mg/dL High 7-20 [facility] Comment on above: Performed By: #### L 500.0950 #### Main Laboratory ([facility]) [facility] [place] [address] Josh Carrillo MD Blood anion gapOrdered By: Jackie Bass on 02-17-2024 Anion gap (Bld) [Moles/Vol] 6 mmol/L 4-12 [facility] Glomerular filtration rate ( GFR) estimation/1.73 sq m using serum, plasma, or whole bOrdered By: Kev Bass on 02-17-2024 GFR/1.73 sq M.predicted (S/P/Bld) [Vol rate/Area] 28 mL/min Low >60 [facility] Comment on above: AGE(years) AVERAGE G FR 60-69 85 ml/min/1.73 square metersNote:This result is normalized to 1.73 square meter body surface area. Height and weight are not factored.Chronic Kidney Disease stages by NKDFStage eGFR I >90 II 60-89 III 30-59 IV 15-29 V <15 or dialysis Serum or plasma calcium vicky urement (mass/volume)Ordered By: Kev Bass on 02-17-2024 Calcium [Mass/Vol] 10.20 mg/dL 8.8-10.5 [facility] Serum or plasma chloride gerhard surement (moles/volume)Ordered By: Kev Bass on 02-17-2024 Chloride [Moles/Vol] 102 mmol/L 101-111 [facility] Serum or plasma creatinine m easurement (mass/volume)Ordered By: Kev Bass on 02-17-2024 Creatinine [Mass/Vol] 1.79 mg/dL High 0.60-1.30 [facility] Serum or plasma glucose vicky urement (mass/volume)Ordered By: Kev Bass on 02-17-2024 Glucose [Mass/Vol] 133 mg/dL High 70-110 [facility] Serum or plasma potassium me asurement (moles/volume)Ordered By: Kev Bass on 02-17-2024 Potassium [Moles/Vol] 4.4 mmol/L 3.6-5.0 [facility] Serum or plasma sodium measu rement (moles/volume)Ordered By: Kev Bass on 02-17-2024 Sodium [Moles/Vol] 141 mmol/L 135-145 [facility] Serum or plasma total carbon dioxide measurement (moles/volume)Ordered By: Kev Bass on 02-17-2024 CO2 [Moles/Vol] 33 mmol/L High 21-32 [facility] Serum or plasma total combin ed vitamin D and metabolites measurement (mass/volume)Ordered By: Kev Bass on 02-17-2024 Vitamin D+Metabolites [Mass/Vol] 68.90 ng/mL 30.00-100.00 [facility] Comment on above: Optimal values are e stablished by the Clinical Guidelines Subcommittee of the Endocrine Society Task Force. (Journal of Clinical Endocrinology & Metabolism,2011;96)Status Vitamin D Concentration Range------- Deficient <20Insufficient 20 - 30Sufficient 30 - 100 Serum or plasma urea nitroge n measurement (mass/volume)Ordered By: Kev Bass on 02-17-2024 Urea nitrogen [Mass/Vol] 41 mg/dL High 7-20 [facility] Vitamin D,25-hydroxy (Total) on 02-17-2024 25(OH) Vitamin D,Total 68.90 ng/mL Normal 30.00-100.00 [facility] Comment on above: Result Comment: Opti mal values are established by the Clinical Guidelines Subcommittee of the Endocrine Society Task Force. (Journal of Clinical Endocrinology & Metabolism,2011;96) Status Vitamin D Concentration Range ------- Deficient <20 Insufficient 20 - 30 Sufficient 30 - 100 Performed By: #### L 500.0950 #### Main Laboratory ([facility]) [address] [place] [address] Josh Carrillo MD Blood anion gapOrdered By: Jackie Bass on 02-03-2024 Anion gap (Bld) [Moles/Vol] 8 mmol/L 4-12 [facility] Cholesterol in LDL Direct as say [Mass/Vol]Ordered By: Kev Bass on 02-03-2024 Cholesterol in LDL [Mass/Vol] 47 mg/dL <100 [facility] Comment on above: The National Cholest harry Education Program (NCEP) has set the following guidelines (reference values) for cholesterol, LDL: Desirable (optimal): <100 mg/dL Low Risk (near optimal): 100-129 mg/dL Borderline high: 130-159 mg/dL High: 160-189 mg/dL Very high: >=190 mg/dL Cholesterol in VLDL Calc [Ma ss/Vol]Ordered By: Kev Bass on 02-03-2024 Cholesterol in VLDL [Mass/Vol] 27 mg/dL <39 [facility] Comprehensive Metabolic Pane frederick 02-03-2024 Albumin [Mass/Vol] 4.0 g/dL Normal 3.5-5.0 [facility] Comment on above: Order Comment: Is Pa tient Fasting? Unknown Performed By: #### L 400.0400, L400.0076, L400.5100, L404.7200 #### Main Laboratory ([facility]) [address] [place] [address] Josh Carrillo MD Albumin/Globulin [Mass ratio] 1.2 {ratio} Low 1.5-2.5 [facility] Comment on above: Order Comment: Is Pa tient Fasting? Unknown Performed By: #### L 400.0400, L400.0076, L400.5100, L404.7200 #### Main Laboratory ([facility]) [address] [place] [address] Josh Carrillo MD Alk Phos 74 IU/L Normal 39-118 [facility] Comment on above: Order Comment: Is Pa tient Fasting? Unknown Performed By: #### L 400.0400, L400.0076, L400.5100, L404.7200 #### Main Laboratory ([facility]) [address] [place] [address] Josh Carrillo MD ALT [Catalytic activity/Vol] 19 U/L Normal 10-40 [facility] Comment on above: Order Comment: Is Pa tient Fasting? Unknown Performed By: #### L 400.0400, L400.0076, L400.5100, L404.7200 #### Main Laboratory ([facility]) [address] [place] [address] Josh Carrillo MD Anion gap [Moles/Vol] 8 mmol/L Normal 4-12 [facility] Comment on above: Order Comment: Is Pa tient Fasting? Unknown Performed By: #### L 400.0400, L400.0076, L400.5100, L404.7200 #### Main Laboratory ([facility]) [address] [place] [address] Josh Carrillo MD AST [Catalytic activity/Vol] 21 U/L Normal 15-41 [facility] Comment on above: Order Comment: Is Pa tient Fasting? Unknown Performed By: #### L 400.0400, L400.0076, L400.5100, L404.7200 #### Main Laboratory ([facility]) [address] [place] [address] Josh Carrillo MD Bili,Total 0.4 mg/dL Normal 0.2-1.0 [facility] Comment on above: Order Comment: Is Pa tient Fasting? Unknown Performed By: #### L 400.0400, L400.0076, L400.5100, L404.7200 #### Main Laboratory ([facility]) [address] [place] [address] Josh Carrillo MD Calcium [Mass/Vol] 9.60 mg/dL Normal 8.8-10.5 [facility] Comment on above: Order Comment: Is Pa tient Fasting? Unknown Performed By: #### L 400.0400, L400.0076, L400.5100, L404.7200 #### Main Laboratory ([facility]) [address] [place] [address] Josh Carrillo MD Chloride [Moles/Vol] 100 mmol/L Low 101-111 [facility] Comment on above: Order Comment: Is Pa tient Fasting? Unknown Performed By: #### L 400.0400, L400.0076, L400.5100, L404.7200 #### Main Laboratory ([facility]) [address] [place] [address] Josh Carrillo MD CO2 [Moles/Vol] 29 mmol/L Normal 21-32 [facility] Comment on above: Order Comment: Is Pa tient Fasting? Unknown Performed By: #### L 400.0400, L400.0076, L400.5100, L404.7200 #### Main Laboratory ([facility]) [address] [place] [address] Josh Carrillo MD Creatinine [Mass/Vol] 1.52 mg/dL High 0.60-1.30 [facility] Comment on above: Order Comment: Is Pa tient Fasting? Unknown Performed By: #### L 400.0400, L400.0076, L400.5100, L404.7200 #### Main Laboratory ([facility]) [address] [place] [address] Josh Carrillo MD GFR Calculation 34 Low [facility] Comment on above: Order Comment: Is Pa tient Fasting? Unknown Result Comment: Header Dock antonella Kidney Disease stages by NKDF Stage eGFR I >90 II 60-89 III 30-59 IV 15-29 V <15 or dialysis AGE(years) AVERAGE GFR 60-69 85 ml/min/1.73 square meters Note:This result is normalized to 1.73 square meter body surface area. Height and weight are not factored. Performed By: #### L 400.0400, L400.0076, L400.5100, L404.7200 #### Main Laboratory ([facility]) [address] [place] [address] Josh Carrillo MD Glucose [Mass/Vol] 112 mg/dL High 70-110 [facility] Comment on above: Order Comment: Is Pa tient Fasting? Unknown Performed By: #### L 400.0400, L400.0076, L400.5100, L404.7200 #### Main Laboratory ([facility]) [address] [place] [address] Josh Carrillo MD Potassium [Moles/Vol] 4.1 mmol/L Normal 3.6-5.0 [facility] Comment on above: Order Comment: Is Pa tient Fasting? Unknown Performed By: #### L 400.0400, L400.0076, L400.5100, L404.7200 #### Main Laboratory ([facility]) [address] [place] [address] Josh Carrillo MD Protein [Mass/Vol] 7.3 g/dL Normal 6.2-8.0 [facility] Comment on above: Order Comment: Is Pa tient Fasting? Unknown Performed By: #### L 400.0400, L400.0076, L400.5100, L404.7200 #### Main Laboratory ([facility]) [address] [place] [address] Josh Carrillo MD Sodium [Moles/Vol] 137 mmol/L Normal 135-145 [facility] Comment on above: Order Comment: Is Pa tient Fasting? Unknown Performed By: #### L 400.0400, L400.0076, L400.5100, L404.7200 #### Main Laboratory ([facility]) [address] [place] [address] Josh Carrillo MD Urea nitrogen [Mass/Vol] 26 mg/dL High 7-20 [facility] Comment on above: Order Comment: Is Pa tient Fasting? Unknown Performed By: #### L 400.0400, L400.0076, L400.5100, L404.7200 #### Main Laboratory ([facility]) [address] [place] [address] Josh Carrillo MD Glomerular filtration rate ( GFR) estimation/1.73 sq m using serum, plasma, or whole bOrdered By: Kev Bass on 02-03-2024 GFR/1.73 sq M.predicted (S/P/Bld) [Vol rate/Area] 34 mL/min Low >60 [facility] Comment on above: AGE(years) AVERAGE G FR 60-69 85 ml/min/1.73 square metersNote:This result is normalized to 1.73 square meter body surface area. Height and weight are not factored.Chronic Kidney Disease stages by NKDFStage eGFR I >90 II 60-89 III 30-59 IV 15-29 V <15 or dialysis Lipid Panelon 02-03-2024 Chol/HDL Risk 2.5 Low 4.0-4.4 [facility] Comment on above: Order Comment: Is Pa tient Fasting? Unknown Performed By: #### L 400.0400, L400.0076, L400.5100, L404.7200 #### Main Laboratory ([facility]) [address] [place] [address] Josh Carrillo MD Cholesterol [Mass/Vol] 113 mg/dL Normal <200 [facility] Comment on above: Order Comment: Is Pa tient Fasting? Unknown Performed By: #### L 400.0400, L400.0076, L400.5100, L404.7200 #### Main Laboratory ([facility]) [address] [place] [address] Josh Carrillo MD Cholesterol in HDL [Mass/Vol] 44 mg/dL Normal [facility] Comment on above: Order Comment: Is Pa tient Fasting? Unknown Result Comment: The National Cholesterol Education Program (NCEP) has set the following guidelines (reference values) for cholesterol, HDL: Low: <40 mg/dL Normal: 40-60 mg/dL High: >60 mg/dL Performed By: #### L 400.0400, L400.0076, L400.5100, L404.7200 #### Main Laboratory ([facility]) [address] [place] [address] Josh Carrillo MD Cholesterol in LDL [Mass/Vol] 47 mg/dL Normal [facility] Comment on above: Order Comment: Is Pa tient Fasting? Unknown Result Comment: The National Cholesterol Education Program (NCEP) has set the following guidelines (reference values) for cholesterol, LDL: Desirable (optimal): <100 mg/dL Low Risk (near optimal): 100-129 mg/dL Borderline high: 130-159 mg/dL High: 160-189 mg/dL Very high: >=190 mg/dL Performed By: #### L 400.0400, L400.0076, L400.5100, L404.7200 #### Main Laboratory ([facility]) [address] [place] [address] Josh Carrillo MD Cholesterol in VLDL [Mass/Vol] 27 mg/dL Normal <39 [facility] Comment on above: Order Comment: Is Pa tient Fasting? Unknown Performed By: #### L 400.0400, L400.0076, L400.5100, L404.7200 #### Main Laboratory ([facility]) [address] [place] [address] Josh Carrillo MD dLDL/HDL RISK 1.0 Normal <3.1 [facility] Comment on above: Order Comment: Is Pa tient Fasting? Unknown Performed By: #### L 400.0400, L400.0076, L400.5100, L404.7200 #### Main Laboratory ([facility]) [address] [place] [id number] Josh Carrillo MD Triglyceride [Mass/Vol] 135 mg/dL Normal <150 L [facility] Comment on above: Order Comment: Is Pa tient Fasting? Unknown Performed By: #### L 400.0400, L400.0076, L400.5100, L404.7200 #### Main Laboratory ([facility]) [address] [place] [address] Josh Carrillo MD Magnesiumon 02-03-2024 Magnesium [Mass/Vol] 1.6 mg/dL Low 1.8-2.5 [facility] Comment on above: Order Comment: Is Raymon romero Fasting? Unknown Performed By: #### L 400.0400, L400.0076, L400.5100, L404.7200 #### Main Laboratory ([facility]) [address] [place] [id number] Josh Carrillo MD Serum or plasma alanine mccallum otransferase measurement (enzymatic activity/volume)Ordered By: Kev Bass on 02-03-2024 ALT [Catalytic activity/Vol] 19 U/L 10-40 [facility] Serum or plasma albumin vicky urement (mass/volume)Ordered By: Kev Bass on 02-03-2024 Albumin [Mass/Vol] 4.0 g/dL 3.5-5.0 [facility] Serum or plasma albumin/glob ulin mass ratioOrdered By: Kev Bass on 02-03-2024 Albumin/Globulin [Mass ratio] 1.2 {ratio} Low 1.5-2.5 [facility] Serum or plasma alkaline ghada sphatase measurement (enzymatic activity/volume)Ordered By: Kev Bass on 02-03-2024 ALP [Catalytic activity/Vol] 74 U/L 39-118 [facility] Serum or plasma aspartate am inotransferase measurement (enzymatic activity/volume)Ordered By: Kev Bass on 02-03-2024 AST [Catalytic activity/Vol] 21 U/L 15-41 [facility] Serum or plasma calcium vicky urement (mass/volume)Ordered By: Kev Bass on 02-03-2024 Calcium [Mass/Vol] 9.60 mg/dL 8.8-10.5 [facility] Serum or plasma chloride gerhard surement (moles/volume)Ordered By: Kev Bass on 02-03-2024 Chloride [Moles/Vol] 100 mmol/L Low 101-111 [facility] Serum or plasma cholesterol in HDL measurement (mass/volume)Ordered By: Kev Bass on 02-03-2024 Cholesterol in HDL [Mass/Vol] 44 mg/dL >40 [facility] Comment on above: The National Cholest harry Education Program (NCEP) has set the following guidelines (reference values) for cholesterol, HDL: Low: <40 mg/dL Normal: 40-60 mg/dL High: >60 mg/dL Serum or plasma cholesterol measurement (mass/volume)Ordered By: Kev Bass on 02-03-2024 Cholesterol [Mass/Vol] 113 mg/dL <200 [facility] Serum or plasma creatinine m easurement (mass/volume)Ordered By: Kev Bass on 02-03-2024 Creatinine [Mass/Vol] 1.52 mg/dL High 0.60-1.30 [facility] Serum or plasma glucose vicky urement (mass/volume)Ordered By: eKv Bass on 02-03-2024 Glucose [Mass/Vol] 112 mg/dL High 70-110 [facility] Serum or plasma low density lipoprotein (LDL) cholesterol/high density lipoprotein (HOrdered By: Kev Bass on 02-03-2024 Cholesterol in LDL/Cholesterol in HDL [Mass ratio] 1.0 {ratio} <3.1 [facility] Serum or plasma magnesium me asurement (mass/volume)Ordered By: Kev Bass on 02-03-2024 Magnesium [Mass/Vol] 1.6 mg/dL Low 1.8-2.5 [facility] Serum or plasma potassium me asurement (moles/volume)Ordered By: Kev Bass on 02-03-2024 Potassium [Moles/Vol] 4.1 mmol/L 3.6-5.0 [facility] Serum or plasma protein vicky urement (mass/volume)Ordered By: Kev Bass on 02-03-2024 Protein [Mass/Vol] 7.3 g/dL 6.2-8.0 [facility] Serum or plasma sodium measu rement (moles/volume)Ordered By: Kev Bass on 02-03-2024 Sodium [Moles/Vol] 137 mmol/L 135-145 [facility] Serum or plasma total biliru bin measurement (mass/volume)Ordered By: Kev Bass on 02-03-2024 Bilirubin [Mass/Vol] 0.4 mg/dL 0.2-1.0 [facility] Serum or plasma total carbon dioxide measurement (moles/volume)Ordered By: Kev Bass on 02-03-2024 CO2 [Moles/Vol] 29 mmol/L - [facility] Serum or plasma total choles terol/high density lipoprotein (HDL) cholesterol mass ratOrdered By: Kev Bass on 02-03-2024 Cholesterol.total/Cholest harry in HDL [Mass ratio] 2.5 {ratio} Low 4.0-4.4 [facility] Serum or plasma triglyceride measurement (mass/volume)Ordered By: Kev Bass on 02-03-2024 Triglyceride [Mass/Vol] 135 mg/dL <150 L [facility] Serum or plasma urea nitroge n measurement (mass/volume)Ordered By: Kev Bass on 02-03-2024 Urea nitrogen [Mass/Vol] 26 mg/dL High 7-20 [facility] TSH DL <= 0.005 mIU/L QnOrde red By: Kev Bass on 02-03-2024 TSH Qn 2.590 m[IU]/L 0.490-4.670 [facility] Thyroid Stimulating Hormoneo n 02-03-2024 TSH Qn 2.590 m[IU]/L Normal 0.490-4.670 [facility] Comment on above: Order Comment: Is Pa tient Fasting? Unknown Performed By: #### L 400.0400, L400.0076, L400.5100, L404.7200 #### Main Laboratory ([facility]) [address] [place] [address] Josh Carrillo MD Microalb/Creat Ratio,Irving Ur on 01-24-2024 Creatinine (U) [Mass/Vol] 182.1 mg/dL Normal [facility] Comment on above: Performed By: #### L 500.0950 #### Main Laboratory ([facility]) [address] [place] [address] Josh Carrillo MD Microalbumin, Random Urine 23.1 mg/L Normal [facility] Comment on above: Performed By: #### L 500.0950 #### Main Laboratory ([facility]) [address] [id number] Josh Carrillo MD Microalbumin/Creatinine Ratio 12.7 mg/Gm Normal 0-30.0 [facility] Comment on above: Performed By: #### L 500.0950 #### Main Laboratory ([facility]) [address] [place] [address] Josh Carrillo MD Urine albumin measurement wi th detection limit of 20 mg/L or less (mass/volume)Ordered By: Kev Bass on 01-24-2024 Albumin DL <= 20 mg/L (U) [Mass/Vol] 23.1 mg/L [facility] Urine creatinine measurement (mass/volume)Ordered By: Kev Bass on 01-24-2024 Creatinine (U) [Mass/Vol] 182.1 mg/dL [facility] Urine microalbumin/creatinin e mass ratioOrdered By: Kev Bass on 01-24-2024 Albumin/Creatinine DL <= 20 mg/L (U) [Mass ratio] 12.7 mg/Gm 0-30.0 [facility] Microalb/Creat Ratio,Irving Ur on 10-19-2023 Microalbumin, Random Urine 12.6 mg/L Normal [facility] Comment on above: Performed By: #### L 500.0950 #### Main Laboratory ([facility]) [address] [place] [address] Josh Carrillo MD Microalbumin/Creatinine Ratio 9.5 mg/Gm Normal 0-30.0 [facility] Comment on above: Performed By: #### L 500.0950 #### Main Laboratory ([facility]) [address] [place] [address] Josh Carrillo MD Urine albumin measurement wi th detection limit of 20 mg/L or less (mass/volume)Ordered By: Kev Bass on 10-19-2023 Albumin DL <= 20 mg/L (U) [Mass/Vol] 12.6 mg/L [facility] Urine creatinine measurement (mass/volume)Ordered By: Kev Bass on 10-19-2023 Creatinine (U) [Mass/Vol] 132.5 mg/dL Normal [facility] Comment on above: Performed By: #### L 500.0950 #### Main Laboratory ([facility]) [address] [place] [address] Josh Carrillo MD Urine microalbumin/creatinin e mass ratioOrdered By: Kev Bass on 10-19-2023 Albumin/Creatinine DL <= 20 mg/L (U) [Mass ratio] 9.5 mg/Gm 0-30.0 [facility] HIGINIO Mammo Olivier Diag w/3D Nas aton 09-15-2023 HIGINIO Mammo Olivier Diag w/3D Bilat [facility] Radiology Department Patient: CARMEN TREJO [address] : 1955 Sex: F [place] [id number] Location: [facility] [phone] Unit #: [id number] Ordering Phys: Terra Barron APRN, HOUSEMAID Exam Date: 09/15/23 Exam: [facility] Mammo Olivier Diag w/3D Bilat Result: See Report MAMMOGRAPHY - BILATERAL DIAGNOSTIC - CAD and OLIVIER IMAGES REASON FOR EXAM: Female, 68 years old. Bilateral breast masses. Short-term follow-up exam. Evaluate. Document stability.. PERTINENT HISTORY: Non-contributory. TECHNIQUE: Digital examination. Mediolateral oblique (MLO) and craniocaudad (CC) views of both breasts were obtained. CAD: CAD was performed on this study. OLIVIER: Olivier images were reviewed. COMPARISON: Mammogram studies dated 03/12/2023, 02/18/2023 and 09/13/2020. FINDINGS: Breast Composition: The breasts are almost entirely fatty. There are no suspicious masses, suspicious cluster of microcalcifications , architectural distortion or secondary sign of malignancy identified in either breast. Focal fibroglandular densities are noted bilaterally. Partially obscured stable isodense masses are seen in both breast. Benign-appearing round calcifications, vascular calcifications and secretory type calcifications are seen in both breasts. There is an additional mass seen previously in the right breast on the ultrasound examination and prior mammogram that is not as well appreciated today. Further work-up with ultrasound will be performed for further evaluation. No other significant abnormalities are identified. CAD and Olivier were reviewed. IMPRESSION: Further imaging evaluation recommended, as described above. ASSESSMENT CATEGORY: BIRADS Category 0: Incomplete. Need additional imaging evaluation. A letter regarding these results will be sent to the patient by the facility within 30 days. FOLLOW UP RECOMMENDATION: Ultrasound Recommended. (I) Approximately 10% of breast cancers are not detected by mammography. A normal mammogram should not delay biopsy of a clinically suspicious abnormality. [id number] cc: Kev Bass MD; Terra Barron APRN-HOUSEMAID Dictated by: Judy Wood DO on 09/16/23 1309 Transcribed by: Judy Wood on 09/16/23 1310 Report Signed by: Judy Wood DO on 09/16/[address] [facility] US Breast Limited RTon 09-14 US Breast Limited RT [facility] Radiology Department Patient: CARMEN TREJO [address] : 1955 Sex: [place] [address] Location: [facility] [phone] [facility] #[facility] [id number] [id number] Ordering Phys: Terra Barron APRN, CNP Exam Date: 09/15/23 Exam: US US Breast Limited RT Result: See Report STUDY: ULTRASOUND BREAST -right REASON FOR EXAM: Female, 68 years old. Right breast masses. Short-term follow-up exam. Evaluate. Document stability. TECHNIQUE: Axial and longitudinal images of the right breast were performed with a high resolution ultrasound transducer. # OF IMAGES: 12 COMPARISON: Breast ultrasound dated 03/12/2023 and mammogram dated 09/15/2023 and 02/18/2023. FINDINGS: Right breast: There are 2 benign-appearing cysts in the right breast which are similar when compared to the prior ultrasound. These are located at the 12:00, 12 cm from nipple position measuring 4 x 3 x 2 mm and 12:00, 12 cm from nipple position measuring 3 x 3 x 2 mm. No suspicious solid masses are seen. IMPRESSION: There are 2 benign-appearing stable cysts in the right breast. Recommendation: Patient should return in 1 year for routine yearly screening mammography ASSESSMENT CATEGORY: BIRADS Category 2: Benign. A letter regarding these results will be sent to the patient by the facility within 30 days. cc: Kev Bass MD; Terra Barron APRN-HOUSEMAID Dictated by: Judy Wood DO on 09/15/23 1012 Transcribed by: Judy Wood on 09/16/23 1349 Report Signed by: Judy Wood DO on 09/16/[address] [facility] Serum or plasma magnesium me asurement (mass/volume)Ordered By: Jackie Bass on 01-20-2023 Magnesium [Mass/Vol] 1.6 mg/dL Low 1.8-2.5 [facility] No Panel InformationOrdered By: Jackie Bass on 12-10-2022 Ionized Calcium 1.16 mmol/L 1.15-1.29 [facility] Serum or plasma intact parat hyroid hormone (iPTH) measurement (mass/volume)Ordered By: Jackie Bass on 12-09-2022 Parathyrin.intact [Mass/Vol] 61.2 U/mL 12.0-88.0 [facility] Albumin [Mass/volume] in Ser um or PlasmaOrdered By: Jackie Bass on 12-04-2022 Albumin [Mass/Vol] 3.7 g/dL 3.5-5.0 [facility] Basophils Auto (Bld) [#/Vol] Ordered By: Jackie Bass on 12-04-2022 Basophils (Bld) [#/Vol] 100 /cmm 0-200 L [facility] Basophils/100 WBC Auto (Bld) Ordered By: Jackie Bass on 12-04-2022 Basophils/100 WBC (Bld) 1.1 % 0-2 L [facility] Blood anion gapOrdered By: Jackie Bass on 12-04-2022 Anion gap (Bld) [Moles/Vol] 8 mmol/L 4-12 [facility] Blood coagulation panelOrder ed By: Jackie Bass on 12-04-2022 Blood coagulation panel 400 /cmm 0-500 L [facility] Blood hematocrit (volume fra ction)Ordered By: Jackie Bass on 12-04-2022 Hematocrit (Bld) [Volume fraction] 36.6 % 35.0-44.0 [facility] Blood hemoglobin measurement (mass/volume)Ordered By: Jackie Bass on 12-04-2022 Hemoglobin (Bld) [Mass/Vol] 12.4 g/dL 12.0-15.0 [facility] Cholesterol in LDL Direct as say [Mass/Vol]Ordered By: Jackie Bass on 12-04-2022 Cholesterol in LDL [Mass/Vol] 50 mg/dL <100 [facility] Comment on above: The National Cholest harry Education Program (NCEP) has set the following guidelines (reference values) for cholesterol, LDL: Desirable (optimal): <100 mg/dL Low Risk (near optimal): 100-129 mg/dL Borderline high: 130-159 mg/dL High: 160-189 mg/dL Very high: >=190 mg/dL Cholesterol in VLDL Calc [Ma ss/Vol]Ordered By: Jackie Bass on 12-04-2022 Cholesterol in VLDL [Mass/Vol] 18 mg/dL <39 [facility] Eosinophils/100 WBC Auto (Bl d)Ordered By: Jackie Bass on 12-04-2022 Eosinophils/100 WBC (Bld) 4.0 % 0-6 [facility] Erythrocyte distribution wid th ratioOrdered By: Jackie Bass on 12-04-2022 Erythrocyte distribution width (RBC) [Ratio] 13.5 % 12.0-16.0 [facility] Lymphocytes/100 WBC Auto (Bl d)Ordered By: Jackie Bass on 12-04-2022 Lymphocytes/100 WBC (Bld) 25.7 % 15-45 [facility] MCH Auto (RBC) [Entitic mass ]Ordered By: Jackie Bass on 12-04-2022 MCH (RBC) [Entitic mass] 31.1 pg 27.5-33.0 [facility] MCHC Auto (RBC) [Mass/Vol]Or dered By: Jackie Bass on 12-04-2022 MCHC (RBC) [Mass/Vol] 33.9 g/dL 33.0-36.0 [facility] MCV Auto (RBC) [Entitic vol] Ordered By: Jackie Bass on 12-04-2022 MCV (RBC) [Entitic vol] 91.7 CU JAIME 80-97 [facility] Monocytes Auto (Bld) [#/Vol] Ordered By: Jackie Bass on 12-04-2022 Monocytes (Bld) [#/Vol] 600 /cmm 0-800 L [facility] Monocytes/100 WBC Auto (Bld) Ordered By: Jackie Bass on 12-04-2022 Monocytes/100 WBC (Bld) 6.5 % 2-10 L [facility] Neutrophils/100 WBC Auto (Bl d)Ordered By: Jackie Bass on 12-04-2022 Neutrophils/100 WBC (Bld) 62.7 % 40-70 [facility] No Panel InformationOrdered By: Jackie Bass on 12-04-2022 Absolute Lymphocytes (auto) 2600 /cmm 0048-1582 [facility] Absolute Neutrophils (auto) 6300 /cmm 6250-5697 [facility] Glomerular Filtration Rate Calc 46 Low >60 [facility] Comment on above: AGE(years) AVERAGE G FR 60-69 85 ml/min/1.73 square metersNote:This result is normalized to 1.73 square meter body surface area. Height and weight are not factored.Chronic Kidney Disease stages by NKDFStage eGFR I >90 II 60-89 III 30-59 IV 15-29 V <15 or dialysis Nucleated RBC Auto (Bld) [#/ Vol]Ordered By: Jackie Bass on 12-04-2022 Nucleated RBC (Bld) [#/Vol] 0.0 /100 WBC <1 [facility] Platelets Auto (Bld) [#/Vol] Ordered By: Jackie Bass on 12-04-2022 Platelets (Bld) [#/Vol] 243 th/cmm 150-400 L [facility] RBC Auto (Bld) [#/Vol]Ordere d By: Jackie Bass on 12-04-2022 RBC (Bld) [#/Vol] 3.99 mil/cmm Low 4.00-5.10 [facility] Serum or plasma alanine mccallum otransferase measurement (enzymatic activity/volume)Ordered By: Jackie Bass on 12-04-2022 ALT [Catalytic activity/Vol] 15 U/L 10-40 [facility] Serum or plasma albumin/glob ulin mass ratioOrdered By: Jackie Bass on 12-04-2022 Albumin/Globulin [Mass ratio] 1.2 {ratio} Low 1.5-2.5 [facility] Serum or plasma alkaline ghada sphatase measurement (enzymatic activity/volume)Ordered By: Jackie Bass on 12-04-2022 ALP [Catalytic activity/Vol] 69 U/L 39-118 [facility] Serum or plasma aspartate am inotransferase measurement (enzymatic activity/volume)Ordered By: Jackie Bass on 12-04-2022 AST [Catalytic activity/Vol] 14 U/L Low 15-41 [facility] Serum or plasma calcium vicky urement (mass/volume)Ordered By: Jackie Bass on 12-04-2022 Calcium [Mass/Vol] 8.30 mg/dL Low 8.8-10.5 [facility] Serum or plasma carbon dioxi de, total measurement (moles/volume)Ordered By: Jackie Bass on 12-04-2022 CO2 [Moles/Vol] 30 mmol/L 21-32 [facility] Serum or plasma chloride gerhard surement (moles/volume)Ordered By: Jackie Bass on 12-04-2022 Chloride [Moles/Vol] 102 mmol/L 101-111 [facility] Serum or plasma cholesterol in HDL measurement (mass/volume)Ordered By: Jackie Bass on 12-04-2022 Cholesterol in HDL [Mass/Vol] 43 mg/dL >40 [facility] Comment on above: The National Cholest harry Education Program (NCEP) has set the following guidelines (reference values) for cholesterol, HDL: Low: <40 mg/dL Normal: 40-60 mg/dL High: >60 mg/dL Serum or plasma cholesterol in LDL/cholesterol in HDL mass ratioOrdered By: Jackie Bass on 12-04-2022 Cholesterol in LDL/Cholesterol in HDL [Mass ratio] 1.1 {ratio} <3.1 [facility] Serum or plasma cholesterol measurement (mass/volume)Ordered By: Jackie Bass on 12-04-2022 Cholesterol [Mass/Vol] 106 mg/dL <200 [facility] Serum or plasma creatinine m easurement (mass/volume)Ordered By: Jackie Bass on 12-04-2022 Creatinine [Mass/Vol] 1.17 mg/dL 0.60-1.30 [facility] Serum or plasma glucose vicky urement (mass/volume)Ordered By: Jackie Bass on 12-04-2022 Glucose [Mass/Vol] 95 mg/dL 70-110 [facility] Comment on above: *This reference rang e applies to fasting specimens only. Serum or plasma magnesium me asurement (mass/volume)Ordered By: Jackie Bass on 12-04-2022 Magnesium [Mass/Vol] 1.2 mg/dL Low 1.8-2.5 [facility] Serum or plasma potassium me asurement (moles/volume)Ordered By: Jackie Bass on 12-04-2022 Potassium [Moles/Vol] 4.3 mmol/L 3.6-5.0 [facility] Serum or plasma protein vicky urement (mass/volume)Ordered By: Jackie Bass on 12-04-2022 Protein [Mass/Vol] 6.7 g/dL 6.2-8.0 [facility] Serum or plasma sodium measu rement (moles/volume)Ordered By: Jackie Bass on 12-04-2022 Sodium [Moles/Vol] 140 mmol/L 135-145 [facility] Serum or plasma total biliru bin measurement (mass/volume)Ordered By: Jackie Bass on 12-04-2022 Bilirubin [Mass/Vol] 0.4 mg/dL 0.2-1.0 [facility] Serum or plasma total choles terol/cholesterol in HDL mass ratioOrdered By: Jackie Bass on 12-04-2022 Cholesterol.total/Cholest harry in HDL [Mass ratio] 2.4 {ratio} Low 4.0-4.4 [facility] Serum or plasma total combin ed vitamin D and metabolites measurement (mass/volume)Ordered By: Jackie aBss on 12-04-2022 Vitamin D+Metabolites [Mass/Vol] 67.60 ng/mL 30.00-100.00 [facility] Comment on above: Optimal values are e stablished by the Clinical Guidelines Subcommittee of the Endocrine Society Task Force. (Journal of Clinical Endocrinology & Metabolism,2011;96)Status Vitamin D Concentration Range------- Deficient <20Insufficient 20 - 30Sufficient 30 - 100 Serum or plasma triglyceride measurement (mass/volume)Ordered By: Jackie Bass on 12-04-2022 Triglyceride [Mass/Vol] 93 mg/dL <150 L [facility] Serum or plasma urea nitroge n measurement (mass/volume)Ordered By: Jackie Bass on 12-04-2022 Urea nitrogen [Mass/Vol] 14 mg/dL 7-20 [facility] TSH DL <= 0.005 mIU/L QnOrde red By: Jackie Bass on 12-04-2022 TSH Qn 0.148 m[IU]/L Low 0.490-4.670 [facility] WBC Auto (Bld) [#/Vol]Ordere d By: Jackie Bass on 12-04-2022 WBC (Bld) [#/Vol] 10.0 th/cmm 4.4-10.5 [facility] Vital Signs Date Time Vital Sign Value Performing Clinician Vincenzo edwards 02-23-2023 15:49-0500 Body height 165.1 cm Physician None Work Phone: [facility] 02-23-2023 15:49-0500 Body mass index (BMI) [Ratio] 43.7 kg/m2 Physician None Work Phone: [facility] 02-23-2023 15:49-0500 Body weight 119.29 kg Physician None Work Phone: [facility] 02-23-2023 15:49-0500 Diastolic blood pressure 67 mm[Hg] Physician None Work Phone: [facility] 02-23-2023 15:49-0500 Heart rate 48 /min Physician None Work Phone: [facility] 02-23-2023 15:49-0500 SaO2% (BldA) [Mass fraction] 96 % Physician None Work Phone: [facility] 02-23-2023 15:49-0500 Systolic blood pressure 132 mm[Hg] Physician None Work Phone: [facility] Encounters Encounter Date Encounter Type Care Provider Facility Start: 01-10-2025 ambulatory Philip England Facility:[facility] Start: 01-09-2025 ambulatory Sofy L White Facility :[facility] Start: 01-09-2025 Evaluation and management of inpatient Ronnie Raghu Facility:[facility] Start: 01-02-2025 End: 01-02-2025 ambulatory Philip England Facility:[facility] Start: 06-23-2024 End: 06-23-2024 ambulatory Philip England MD Work Phone: [facility] Work Phone: Start: 06-23-2024 End: 06-23-[address] [facility] Start: 06-23-2024 End: 06-23-2024 ambulatory Philip England Facility:[facility] Start: 03-28-2024 End: 03-28-2024 ambulatory Kev Bass MD Work Phone: [facility] Work Phone: Start: 03-28-2024 End: 03-28-2024 Patient encounter procedure Hammad Gore MD [facility] Start: 03-20-2024 End: 03-20-2024 Patient encounter procedure Hammad Gore MD [facility] Start: 03-20-2024 End: 03-20-2024 ambulatory Kev Bass MD Work Phone: [facility] Work Phone: Start: 03-16-2024 End: 03-16-2024 ambulatory Kev Bass MD Work Phone: [facility] Work Phone: Start: 03-16-2024 End: 03-16-2024 Patient encounter procedure Hammad Gore MD [facility] Start: 02-28-2024 End: 02-28-2024 ambulatory Kev Bass MD Work Phone: [facility] Work Phone: Start: 02-28-2024 End: 02-28-2024 Patient encounter procedure Omayra Silva FORENSIC ARTIST-HOUSEMAID [facility] Start: 02-17-2024 End: 02-17-2024 Patient encounter procedure Kev Bass MD [facility] Start: 02-17-2024 End: 02-17-2024 ambulatory Kev Bass MD Work Phone: [facility] Work Phone: Start: 02-03-2024 End: 02-03-2024 Patient encounter procedure Kev Bass MD [facility] Start: 02-03-2024 End: 02-03-2024 ambulatory Kev Bass MD Work Phone: [facility] Work Phone: Start: 01-24-2024 End: 01-24-2024 ambulatory Kev Bass MD Work Phone: [facility] Work Phone: Start: 01-24-2024 End: 01-24-2024 Patient encounter procedure Kev Bass MD [facility] Start: 10-19-2023 End: 10-19-2023 ambulatory MD Kev Bass Work Phone: [facility] Work Phone: Start: 10-19-2023 End: 10-19-2023 Patient encounter procedure MD Kev Bass Work Phone: [facility] Start: 09-15-2023 End: 09-15-2023 Patient encounter procedure MD Kev Bass Work Phone: [facility] Start: 09-15-2023 End: 09-15-2023 ambulatory MD Kev Bass Work Phone: [facility] Work Phone: Start: 08-30-2023 End: 08-30-2023 ambulatory MD Kev Bass Work Phone: [facility] Work Phone: Start: 08-30-2023 End: 08-30-2023 Patient encounter procedure MD Kev Bass Work Phone: [facility] Start: 07-20-2023 End: 07-20-2023 ambulatory MD Kev Bass Work Phone: [facility] Work Phone: Start: 07-20-2023 End: 07-20-2023 Patient encounter procedure MD Kev Bass Work Phone: [facility] Start: 05-24-2023 End: 05-24-2023 ambulatory MD Jackie Bass Work Phone: [facility] Work Phone: Start: 05-24-2023 End: 05-24-2023 Patient encounter procedure MD BRANDON Bass Work Phone: [facility] Start: 04-21-2023 End: 04-21-2023 ambulatory MD Jackie Bass Work Phone: [facility] Work Phone: Start: 04-21-2023 End: 04-21-2023 Patient encounter procedure MD BRANDON Bass Work Phone: [facility] Start: 03-12-2023 End: 03-12-2023 ambulatory Physician None Work Phone: [facility] Work Phone: Start: 03-12-2023 End: 03-12-2023 Patient encounter procedure Physician None Work Phone: [facility] Start: 03-02-2023 End: 03-02-2023 ambulatory Physician None Work Phone: [facility] Work Phone: Start: 03-02-2023 End: 03-02-2023 Patient encounter procedure Physician None Work Phone: [facility] Start: 02-26-2023 End: 02-26-2023 ambulatory Physician None Work Phone: [facility] Work Phone: Start: 02-26-2023 End: 02-26-2023 Patient encounter procedure Physician None Work Phone: [facility] Start: 02-24-2023 End: 02-24-2023 Patient encounter procedure Physician None Work Phone: [facility] Start: 02-23-2023 End: 02-23-2023 ambulatory Physician None Work Phone: [facility] Work Phone: Start: 02-23-2023 End: 02-23-2023 Patient encounter procedure Physician None Work Phone: [facility] Start: 02-18-2023 End: 02-18-2023 ambulatory Physician None Work Phone: [facility] Work Phone: Start: 02-18-2023 End: 02-18-2023 Patient encounter procedure Physician None Work Phone: [facility] Start: 01-20-2023 End: 01-20-2023 ambulatory Physician None Work Phone: [facility] Work Phone: Start: 01-20-2023 End: 01-20-2023 Patient encounter procedure Physician None Work Phone: [facility] Start: 12-09-2022 End: 12-10-2022 ambulatory Physician None Work Phone: [facility] Work Phone: Start: 12-09-2022 End: 12-10-2022 Discharged Recurring Physician None Work Phone: [facility] Start: 12-04-2022 End: 12-04-2022 ambulatory Physician None Work Phone: [facility] Work Phone: Start: 12-04-2022 End: 12-04-2022 Patient encounter procedure Physician None Work Phone: [facility] Start: 09-28-2022 End: 09-28-2022 ambulatory Physician None Work Phone: [facility] Work Phone: Start: 09-28-2022 End: 09-28-2022 Patient encounter procedure Physician None Work Phone: [facility] Procedures Date Procedure Procedure Detail Performing Clinician Start: 03-20-2024 Blood count hemoglobin Kev Bass Comment on above: Order Comment: Urine Source Urine, Clean Catch Performed By: #### L [id number] #### Main Laboratory ([facility]) [address] [place] [address] Josh Carrillo MD Start: 03-20-2024 Ultrasonography of b ilateral kidneys Kev Bass MD Work Phone: Start: 09-15-2023 Ultrasonography of r ight breast MD Kev Bass Work Phone: Start: 09-15-2023 Bilateral mammography M D Kev Bass Work Phone: Start: 03-12-2023 Ultrasonography of l eft breast MD BRANDON Bass Work Phone: Start: 03-12-2023 Ultrasonography of r ight breast MD BRANDON Bass Work Phone: Start: 03-12-2023 Bilateral mammography M D BRANDON Bass Work Phone: Start: 02-26-2023 Plain chest X-ray Physi finn None Work Phone: Start: 02-18-2023 Dual energy X-ray absorptiometry Physician None Work Phone: Start: 02-18-2023 Screening mammograph y of bilateral breasts Physician None Work Phone: Plan of Treatment Date Care Activity Detail Author Start: 09-15-2023 Ultrasonography of right breast US Breast Limited RT [facility] Start: 09-15-2023 US Breast - right limited [facility] Start: 09-15-2023 Bilateral mammography HIGINIO Mammo Olivier Diag w/3D Bilat [facility] Start: 09-15-2023 DBT Breast - bilateral diagnostic [facility] Start: 03-12-2023 Ultrasonography of left breast US Breast Limited LT [facility] Start: 03-12-2023 US Breast - left limited [facility] Start: 03-12-2023 Ultrasonography of right breast US Breast Limited RT [facility] Start: 03-12-2023 US Breast - right limited [facility] Start: 12-29-2023 Bilateral mammography HIGINIO Mammo Diagnostic Digital [facility] Start: 03-12-2023 MG Breast - bilateral Diagnostic [facility] Start: 02-26-2023 Plain chest X-ray XR Chest (PA & LAT) Min [address] [facility] Start: 02-26-2023 XR Chest PA and Lateral [facility] Patient referral [facility] Work Phone: Payers Date Payer Category Payer Private Health Insurance [id number] 2023 Self-pay Medicaid 100 MEDICAID [id number] [facility] Insurance [facility] [id number] [facility] Insurance [facility] [id number] Unknown [id number]. 139 Unknown [id number] [id number]. 139 Unknown [id number] 2.16.840.1.643913.3.579.2. 139 Unknown [id number] 2.840.1.450606.3.579.2. 139 Unknown [id number] 2.840.1.295378.3.579.2. 139 Unknown [id number] 2.16.840.1.714931.3.579.2. 139 Unknown [id number] 2.16.840.1.011307.3.579.2. 139 Unknown [id number] 2.16.840.1.004393.3.579.2. 139 Unknown [id number] 2.16.840.1.784881.3.579.2. 462 Unknown [id number] 2.840.1.323390.3.579.2. 462 Unknown [id number] 2.16.840.1.376041.3.579.2. 462 Unknown [id number] 2.16.840.1.986036.3.579.2. 462 Unknown [id number] 2.16.840.1.489825.3.579.2. 462 Unknown [id number] 2.16.840.1.690979.3.579.2. 462 Unknown [id number] 2.16.840.1.064458.3.579.2. 462 Unknown [id number] 2.16.840.1.186598.3.579.2. 462 Social History Date Type Detail Facility Tobacco smoking stat [facility] Unknown if ever smoked [facility] Work Phone: Start: 1955 Sex Assigned At Female L [facility] Start: 02-23-2023 End: 02-23-2023 Tobacco smoking status NHIS Ex-smoker (finding) [facility] Start: 03-15-1975 End: 03-15-[address] [facility] Work Phone: Start: 02-23-2023 None [facility] Start: 02-23-2023 5 or More[facility] Start: 02-23-2023 Cigarettes [facility] Start: 01-25-2024 End: 06-28-2024 Sex Female (finding) [facility] Work Phone: Clinical Notes 02-23-2023 to 03-20-2024 Note Date & Type Note Facility 03-20-2024 Radiology Diagnostic study note [facility] Radiology Department Patient: CARMEN TREJO [address] : 1955 Sex: [place], [place] [address] Location: [facility] [phone] Unit #: [id number] Ordering Phys: Hammad Gore MD Exam Date: 03/20/24 Exam: US US Renal Bilateral Result: See Report EXAM: US RETROPERITONEAL LIMITED, RENAL CLINICAL INDICATION: CKD STAGE 4 TECHNIQUE: Real-time limited ultrasound of the retroperitoneum with image documentation. COMPARISON: No relevant prior studies available. FINDINGS: RIGHT KIDNEY: 4.3 x 5.5 x 10.7 cm. Resistive index measures 0.58. Renal cortex measures 10 mm. No stones. No hydronephrosis. LEFT KIDNEY: 5.0 x 4.7 x 11.4 cm. Resistive index measures 0.59. Renal cortex measures 9.4 mm. Simple well-defined anechoic cysts of the left kidney measure up to 1.4 cm. No required imaging follow-up needed given high likelihood of benign nature. No stones. No hydronephrosis. BLADDER: Urinary bladder is poorly evaluated given lack of distention. Ureteraljets are confirmed. IMPRESSION: No hydronephrosis. cc: Hammad Gore MD; Kev Bass MD Dictated by: Curt Borges MD on 03/20/24 1041 Transcribed by: Curt Borges on 03/20/24 1043 Report Signed by: Curt Borges MD on 03/20/[address] [facility] Work Phone: 03-12-2023 Chief complaint+Reason for visit Narrative Reason for Visit Bruxism (teeth grinding) COPD (chronic obstructive pulmonary disease) Dry mouth History of sleep walking Hypothyroidism Morning headache Myalgia Night sweats Obstructive sleep apnea (adult) (pediatric) Restless legs Restless sleeper Severe obesity (BMI >= 40) Sleep talking Snoring [facility] Work Phone: 1(484) 820-100912-29-2023 Evaluation note* Diagnosis Onset Date Resolution Status Bruxism (teeth grinding) acu te COPD (chronic obstructive pulmonary disease) acute Dry mouth acute History of sleep walking acu te Hypothyroidism acute Morning headache acute Myalgia acute Night sweats acute Obstructive sleep apnea (adult) (pediatric) acute Restless legs acute Restless sleeper acute Severe obesity (BMI >= 40) a cute Sleep talking acute Snoring acute [facility] Work Phone: 1(466) 142-113412-19-2023 Chief complaint+Reason for visit Narrative * Chief Complaint TYPE 2 DM Hypocalcemia SCREEN OSTEOPOROSIS Dr. Bass Referral - Known RHODA, CPAP Broken split sob Reason for Visit Bruxism (teeth grind ing) COPD (chronic obstructive pulmonary disease) Dry mouth History of sleep walking Hypothyroidism Morning headache Myalgia Night sweats Obstructive sleep apnea (adult) (pediatric) Restless legs Restless sleeper Severe obesity (BMI >= 40) Sleep talking Snoring [facility] Work Phone: 1(390) 767-286712-19-2023 Evaluation note* Diagnosis Onset Date Resolution Status Bruxism (teeth grinding) acu te COPD (chronic obstructive pulmonary disease) acute Dry mouth acute History of sleep walking acu te Hypothyroidism acute Morning headache acute Myalgia acute Night sweats acute Obstructive sleep apnea (adult) (pediatric) acute Restless legs acute Restless sleeper acute Severe obesity (BMI >= 40) a cute Sleep talking acute Snoring acute [facility] Work Phone: 1(716) 421-525812-12-2023 Consult note Author Tonia Regalado [facility] February 23, 2023 3:55pm Note Date/Time February 23, 2023 3:49pm [facility] Sleep Center Patient: CARMEN TREJO [address] [address] : 1955 [place] [address] Location: [place] [address] Unit #: [id number] Sleep Clinic Initial Report Tonia Regalado CNP Service Date: 02/23/23 ADDENDUM: Eszopiclone 2 mg PO x 1 prescribed, 3 mg was not prescribed. Addendum Entered by: Tonia Regalado CNP on 02/23/23 at 1555 Addendum Signed by: Tonia Regalado CNP on 02/23/23 1555 <<Signature on File>> <Electronically signed by Tonia Regalado CNP> Addendum Signed by: on Assessment (1) Obstructive sleep apnea (adult) (pediatric): Status: Acute Plan: A 67 year old female presents to the clinic for a sleep study. Dr Jackie Bass referred patient. Patient was diagnosed 20 years ago with obstructive sleep apnea had a repeat sleep study in 2004 which we have no records of. Patient reports her CPAP stopped working 1 month ago and needs a sleep study to get a new machine. Patient reports prior to the machine breaking she wore it every night. Now without the CPAP she complains of waking up tired and ready togo back to sleep, snoring, waking up gasping or choking, restless sleep, restless legs, morning headaches, acting out dreams, sleep talking, night sweats, grinding teeth, sleepwalking, and wakes up with body aches. Sleep apnea quality of life questionnaire and ESS reviewed. Patient has an ESS of 7. Patient has a consistent bedtime at midnight and was sleeping till 7 AM with the CPAP. Patient reports without the CPAP she wakes up at 3 AM and then is up and down until it is time to get up. Patient is active during the day, denies drowsy driving, does take 15 to 20-minute naps and reports they are not refreshing. Patient reports both parents snored but never had a sleep study. Patient reports son does have RHODA. Discussed the risks of untreated sleep apnea including not waking up, heart disease, stroke, high blood pressure. Patient agrees to have sleep study completed. Discussed the process of a sleep study. Patient does request a need for a sleep aid. Advised to bring evening medications and sleep aid with her on the night of the study. Eszopiclone 3 mg PO x 1 prescribed. A split night sleep study ordered. Go to Sleep [facility] provided for patient. Patient denies any further questions/concerns at this time.?Patient to call before with any questions or concerns. (2) Snoring: Status: Acute Plan: A split night sleep study ordered. Go to Sleep [facility] provided for patient. (3) Night sweats: Status: Acute Plan: A split night sleep study ordered. Go to Sleep [facility] provided for patient. (4) History of sleep walking: Status: Acute Plan: A split night sleep study ordered. Go to Sleep [facility] provided for patient. (5) Dry mouth: Status: Acute Plan: A split night sleep study ordered. Go to Sleep [facility] provided for patient. (6) Bruxism (teeth grinding): Status: Acute Plan: A split night sleep study ordered. Go to Sleep [facility] provided for patient. (7) Sleep talking: Status: Acute Plan: A split night sleep study ordered. Go to Sleep [facility] provided for patient. (8) Restless legs: Status: Acute Plan: A split night sleep study ordered. Go to Sleep [facility] provided for patient. (9) Myalgia: Status: Acute Plan: A split night sleep study ordered. Go to Sleep [facility] provided for patient. (10) Morning headache: Status: Acute Plan: A split night sleep study ordered. Go to Sleep [facility] provided for patient. (11) Restless sleeper: Status: Acute Plan: A split night sleep study ordered. Go to Sleep [facility] provided for patient. (12) COPD (chronic obstructive pulmonary disease): Status: Acute Qualifiers: COPD type: unspecified COPD Qualified Code(s): J44.9 - Chronic obstructive pulmonary disease, unspecified Plan: Patient to follow up with primary care physician Dr Jackie Bass to manage and treat. (13) Hypothyroidism: Status: Acute Qualifiers: Hypothyroidism type: unspecified Qualified Code(s): E03.9 - Hypothyroidism, unspecified Plan: Patient to follow up with primary care physician Dr Jackie Bass to manage and treat. (14) Severe obesity (BMI >= 40): Status: Acute Plan: Encouraged healthy lifestyle choices and follow up with primary care provider Angle Bass to manage and treat. Time Spent: Prior to seeing the patient, I spent 6 minutes reviewing labs, imaging, and other test results as needed. I also reviewed any necessary medical history documentation regarding the patient?s problems. I spent 20 minutes face to face with the patient performing a history and exam, discussing treatment options, the plan of care, symptom management and follow up appointments. The patient andfamily agree with the plan of care and acknowledge understanding. All questions were answered. After the patient?s departure, I spent 22 minutes completing a comprehensive note including in depth medical decision making, appropriate prescription management, coordinating care and preparing orders when indicated. History of Present Illness Chief Complaint: The patient is here in the office today for her initial consultation. She has been referred to our office by Dr. Bass for known RHODA. The patient is not using a CPAP at this time, her CPAP recently stopped working. Type of visit: Initial Evaluation Source of Information: Patient Allergies/Adverse Reactions ivp dye Allergy (Unknown, Uncoded 02/23/23 15:20) Unknown by Patient Home Medications atenolol 100 mg tablet 100 mg PO DAILY 02/23/23 [Confirmed 02/23/23] atorvastatin 40 mg tablet 40 mg PO DAILY 02/23/23 [Confirmed 02/23/23] calcium 100 mg capsule 1 mg PO DAILY 02/23/23 [Confirmed 02/23/23] cholecalciferol (vitamin D3) 125 mcg (5,000 unit) tablet (Vitamin D3) 125 mcg PODAILY 02/23/23 [Confirmed 02/23/23] levothyroxine 150 mcg tablet 150 mcg PO DAILY 02/23/23 [Confirmed 02/23/23] lisinopril 5 mg tablet 5 mg PO DAILY 02/23/23 [Confirmed 02/23/23] magnesium oxide 400 mg (241.3 mg magnesium) tablet 400 mg PO BID 02/23/23 [Confirmed 02/23/23] spironolactone 50 mg tablet 50 mg PO BID 02/23/23 [Confirmed 02/23/23] Past Medical History Medical History Anxiety Arthritis COPD (chronic obstructive pulmonary disease) Diabetes Emphysema lung Frequent headaches Kidney disease Pneumonia Sinus trouble SOB (shortness of breath) Thyroid cancer Past Surgical History Surgical History H/O knee surgery H/O: hysterectomy History of appendectomy History of tonsillectomy Social History Caffeine Amount: 5 or More/Day Alcohol Consumption: None/Does Not Consume Current Alcohol Amount: None Smoking Status: Former smoker Type of Tobacco: Cigarettes Smoking Start Date: 03/15/75 Smoking Stop Date: 03/15/96 Family History Mother Heart disease Father Heart disease ruptured aortic aneurysm Son RHODA (obstructive sleep apnea) Ward Sleepiness Scale Sitting and Reading: Slight chance of dozing Watching TV: Slight chance of dozing Sitting inactive in a public place: No chance of dozing As a passenger in a car for an hour without a break: No chance of dozing Lying down to rest in the afternoon when circumstance permit: High chance of dozing Sitting and talking to someone: No chance of dozing Sitting quietly after a lunch without alcohol: Moderate chance of dozing In a car, while stopped for a few minutes in traffic: No chance of dozing Score: 7 [place] Narcolepsy Scale How often are you unable to fall asleep?: Sometimes (1-3 times per month) How often do you feel bad or not well rested in the morning?: Sometimes (1-3 times per month) How often do you take a nap during the day?: Rarely (less than once a month) How often have you experienced weak/buckling knees?: Never How often have you experienced jaw sagging during emotions?: Never Total: 31 Sleep Apnea Quality of Life Current Total: 72 Screening Total Total: 110 Sleep Pattern Typical Bedtime: MIDNIGHT Typical amout of time to fall asleep: 3 MIN Typical number of awakenings per night: FEW HOURS If you awake at night list the things you do: LAY THERE Typical amout of time to fall back to sleep: VARIES Typical wake up time: 3 AM Total amount of sleep per night: 6 HOURS Do you have trouble sleeping in a new environment: No Sleep Questionnaire Have you been told that you snore: Yes Have you been told that you stop breathing while you sleep: Yes Do you wish that you had more energy: Yes Do you sweat during the night: Yes Do you get morning headaches: Yes Do you have trouble sleeping when you have a cold: Yes Are you overweight: Yes Do you seem to be losing your sex drive: No Do you frequently wake with a dry mouth: Yes Do you usually watch TV or read in bed prior to sleep: No Do you drink alcohol prior to bedtime: No Do you smoke prior to bedtime or when awake during the night: No Do you have bad dreams as an adult: No Do you grind your teeth at night: Yes Have you been told that you talk in your sleep: Yes Do you have issues with bedwetting at night: No Do thoughts race through your mind that prevent sleeping: Yes Do you awaken earlier in the morning than you would like to: Yes Do you feel depressed: No When you are angry/surprised do your muscles feel weak: No Have you had an accident due to dozing off or falling asleep while driving: No Do you often feel like you are going around in a daze: No Do you feel like you are hallucinating when you fall asleep: No How do you find naps to feel: Non-Refreshing Do you have episodes of feeling paralyzed during sleep: No Are your legs restless during the day: Yes Have you been told that you kick at night: Yes Do you awaken with sore or achy muscles: Yes Even though you sleep at night, do you feel tired in the day: Yes Other unusual behavior you want the doctor to be aware of: ROLL IN SLEEP, WALK Review of Systems General: Negative Skin: Negative Breast: Negative Neck: Negative Eyes: Negative Ears: Negative Nose: Negative Sinus: Negative Mouth/Throat: Negative Respiratory: Negative Cardiovascular: Negative Gastrointestinal: Negative Genitourinary: Negative Gynecological: Negative Neuro: Negative Psych: Negative Musculoskeletal: Joint stiffness Heme/Lymph: Negative Endocrine: Negative Physical Exam General Appearance: Positive Alert and Cooperative HEENT: Positive Normal Inspection (Mallampati Class IV, mild overbite), Pharynx Normal, EOMI, Oral Mucosa Moist and Other; Negative Pharyngeal Erythrma or Exudate Skin: Positive Color Normal and Warm, Dry; Negative Diaphoresis Neck: Positive Normal Inspection and Supple with Full ROM; Negative JVD Cardiovascular: Positive Regular Rate and Rhythm and S1 S2; Negative Murmur Left Lung: Throughout: Clear Right Lung: Throughout: Clear Lungs: Positive Good Air Entry; Negative Respiratory Distress Extremities: Positive Activity as expected and Warm and Dry; Negative Edema Neurologic: Positive Grossly Intact, Moves all extremities and A & O x3 Psychological: Positive Mood & Affect Normal; Negative Agitated Patient Data Previous Imaging: Viewed Height (Ft & In): 5 ft 5 in Actual Weight (Kg): 119.295 kg Weight (Lb): 263 Body Mass Index (BMI): 43.7 Neck Measurement (Inches): 18.5 Pulse Rate: 48 Oxygen Saturation%: 96 Oxygen Delivery: Room Air Blood Pressure: 132/67 cc: Tonia Regalado CNP; Jackie Bass MD Dictated by: Tonia Regalado CNP on 02/23/231534 Entered by: Tonia Regalado CNP on 02/23/231534 Report Signed by: Tonia Regalado CNP on 02/23/23 2111 <<Signature on File>> <Electronically signed by Tonia A Fogt HOUSEMAID> Report Signed by: on [facility] Work Phone: chiti complaint+Reason for visit Narrative* Chief Complaint TYPE 2 DM Hypocalcemia SCREEN OSTEOPOROSIS Dr. Bass Referral - Known RHODA, CPAP Broken Reason for Visit Bruxism (teeth grind ing) COPD (chronic obstructive pulmonary disease) Dry mouth History of sleep walking Hypothyroidism Morning headache Myalgia Night sweats Obstructive sleep apnea (adult) (pediatric) Restless legs Restless sleeper Severe obesity (BMI >= 40) Sleep talking Snoring [facility] Work Phone: chixe complaint+Reason for visit Narrative* Chief Complaint SCREEN OSTEOPOROSIS Dr. Bass Referral - Known RHODA, CPAP Broken split sob BILATERAL BREAST MASSES Reason for Visit Bruxism (teeth grind ing) COPD (chronic obstructive pulmonary disease) Dry mouth History of sleep walking Hypothyroidism Morning headache Myalgia Night sweats Obstructive sleep apnea (adult) (pediatric) Restless legs Restless sleeper Severe obesity (BMI >= 40) Sleep talking Snoring [facility] Work Phone: chiua complaint+Reason for visit Narrative* Chief Complaint TYPE 2 DM Hypocalcemia SCREEN OSTEOPOROSIS Dr. Bass Referral - Known RHODA, CPAP Broken split sob Reason for Visit Bruxism (teeth grind ing) COPD (chronic obstructive pulmonary disease) Dry mouth History of sleep walking Hypothyroidism Morning headache Myalgia Night sweats Obstructive sleep apnea (adult) (pediatric) Restless legs Restless sleeper Severe obesity (BMI >= 40) Sleep talking Snoring [facility] Work Phone: Evaluation noteNo assessment information availableSt. Mary'[facility] Work Phone: Evaluation note* Diagnosis Onset Date Resolution Status Bruxism (teeth grinding) acu te COPD (chronic obstructive pulmonary disease) acute Dry mouth acute History of sleep walking acu te Hypothyroidism acute Morning headache acute Myalgia acute Night sweats acute Obstructive sleep apnea (adult) (pediatric) acute Restless legs acute Restless sleeper acute Severe obesity (BMI >= 40) a cute Sleep talking acute Snoring acute [facility] Work Phone: Reason for referral (narrative)No reason for referral information availableSt. Mary'[facility] Work Phone: Chief Complaint and Reason for Visit Chief Complaint E11.9 TYPE 2 DM Chief Complaint E11.9 TYPE 2 DM Hypocalcemia Chief Complaint TYPE 2 DM Hypocalcemia Chief Complaint TYPE 2 DM Hypocalcemia SCREEN OSTEOPOROSIS Chief Complaint split sob J44.9 BILATERAL BREAST MASSES Chief Complaint F/U BILATERAL BREAST MASSES Chief Complaint Admit Date Type 2 diabetes mellitus without complic ations February 03, 2024 9:45am Chief Complaint Admit Date E11.42 E11.9 E66.01 E83.42 E89.0 Z00.00 January 24, 2024 9:11am Type 2 diabetes mellitus without complic ations February 03, 2024 9:45am Other specified abnormal findings of blo od soil chemist February 17, 2024 9:09am Chief Complaint Admit Date E11.42 E11.9 E66.01 E83.42 E89.0 Z00.00 January 24, 2024 9:11am Type 2 diabetes mellitus without complic ations February 03, 2024 9:45am Other specified abnormal findings of blo od soil chemist February 17, 2024 9:09am E66.01 G47.33 J44.89 J44.9 Z68.41 Z87.89 1 February 28, 2024 9:23am Chief Complaint Admit Date E11.42 E11.9 E66.01 E83.42 E89.0 Z00.00 January 24, 2024 9:11am Type 2 diabetes mellitus without complic ations February 03, 2024 9:45am Other specified abnormal findings of blo od soil chemist February 17, 2024 9:09am E66.01 G47.33 J44.89 J44.9 Z68.41 Z87.89 1 February 28, 2024 9:23am CKD STAGE 4 March 20, 2024 9: 53am Chief Complaint Admit Date I12.9 March 16, 2024 2: 10pm CKD STAGE 4 March 20, 2024 9: 53am N184 March 28, 2024 1 0:32am Chief Complaint Admit Date EORDERS June 23, 2024 9:1 9am Family History No Family History Records Found Relationship Condition Age at Onset Recorded Date/T asha Parent Heart disease Unknown Child Obstructive sleep apnea syndrome Unknown Summary Purpose Advance Directives No Advanced Directives Records FoundNo Advanced Directives Records Found Additional Source Comments Goals (unrecognized section and content) Goals may be documented in a n alternate sectionGoals may be documented in an alternate sectionGoals may be documented in an alternate sectionGoals may be documented in an alternate sectionGoals may be documented in an alternate sectionGoals may be documented in an alternate sectionGoals may be documented in an alternate sectionGoals may be documented in an alternate sectionGoals may be documented in an alternate sectionGoals may be documented in an alternate sectionGoals may be documented in an alternate sectionGoals may be documented in an alternate sectionGoals may be documented in an alternate sectionGoals may be documented in an alternate sectionGoals may be documented in an alternate sectionGoals may be documented in an alternate sectionGoals may be documented in an alternate sectionGoals may be documented in an alternate sectionGoals may be documented in an alternate sectionGoals may be documented in an alternate sectionGoals may be documented in an alternate sectionGoals may be documented in an alternate sectionGoals may be documented in an alternate sectionGoals may be documented in an alternate sectionGoals may be documented in an alternate sectionGoals may be documented in an alternate sectionGoals may be documented in an alternate sectionGoals may be documented in an alternate sectionGoals may be documented in an alternate section Care Teams (unrecognized sec tion and content) Team Status: Active Member Role Status Dates Jackie Bass MD Primary Care Provider Active Team Status: Inactive Member Role Status Dates Physician None Primary Care Provider Active Jackie Bass MD Attending Provider Active Team Status: Active Member Role Status Dates Physician None Primary Care Provider Active Team Status: Inactive Member Role Status Dates Jackie Bass MD Primary Care Provider, Attending Provider Active Team Status: Inactive Member Role Status Dates Jackie Bass MD Primary Care Provider Active Tonia Regalado CNP Attending Provider Active Team Status: Inactive Member Role Status Dates Jackie Bass MD Primary Care Provider Active Jesus Jim DO Attending Provider Active Team Status: Inactive Member Role Status Dates Jackie Bass MD Primary Care Provider Active Zaid Blank MD Attending Provider Active Team Status: Inactive Member Role Status Dates Jackie Bass MD Primary Care Provider Active Omayra Silva APRN CNP Attending Provider Active Team Status: Active Member Role Status Dates Kev Bass MD Primary Care Provider Active Team Status: Inactive Member Role Status Dates Kev Bass MD Primary Care Provider Active Start: May 24, 2023 End: May 24, 2023 Omayra Silva APRN CNP Attending Provider Active Start: May 24, 2023 End: May 24, 2023 Team Status: Inactive Member Role Status Dates Kev Bass MD Primary Care P rovider, Attending Provider Active Start: July 20, 2023 End: July 20, 2023 Team Status: Inactive Member Role Status Dates Kev Bass MD Primary Care Provider Active Start: August 30, 2023 End: August 30, 2023 Omayra Silva APRN CNP Attending Provider Active Start: August 30, 2023 End: August 30, 2023 Team Status: Inactive Member Role Status Dates Terra Barron APRN CNP Attending Provider Active Start: September 15, 2023 End: September 15, 2023 Kev Bass MD Primary Care Provider Active Start: September 15, 2023 End: September 15, 2023 Team Status: Inactive Member Role Status Dates Kev Bass MD Primary Care P rovider, Attending Provider Active Start: October 19, 2023 End: October 19, 2023 Team Status: Inactive Member Role Status Dates Kev Bass MD Primary Care P rovider, Attending Provider Active Start: January 24, 2024 End: January 24, 2024 Team Status: Inactive Member Role Status Dates Kev Bass MD Primary Care P rovider, Attending Provider Active Start: February 03, 2024 End: February 03, 2024 Team Status: Inactive Member Role Status Dates Kev Bass MD Primary Care P rovider, Attending Provider Active Start: February 17, 2024 End: February 17, 2024 Team Status: Inactive Member Role Status Dates Kev Bass MD Primary Care Provider Active Start: February 28, 2024 End: February 28, 2024 Omayra Silva APRN CNP Attending Provider Active Start: February 28, 2024 End: February 28, 2024 Team Status: Inactive Member Role Status Dates Kev Bass MD Primary Care Provider Active Start: March 16, 2024 End: March 16, 2024 Hammad Gore MD Attending Provider Active St art: March 16, 2024 End: March 16, 2024 Team Status: Inactive Member Role Status Dates Kev Bass MD Primary Care Provider Active Start: March 20, 2024 End: March 20, 2024 Hammad Gore MD Attending Provider Active St art: March 20, 2024 End: March 20, 2024 Team Status: Inactive Member Role Status Dates Kev Bass MD Primary Care Provider Active Start: March 28, 2024 End: March 28, 2024 Hammad Gore MD Attending Provider Active St art: March 28, 2024 End: March 28, 2024 Team Status: Active Member Role Status Dates Philip England MD Primary Care Provider Active Team Status: Inactive Member Role Status Dates Philip England MD Primary Care Provider Active St art: June 23, 2024 End: June 23, 2024 Philip England MD Attending Provider Active Start : June 23, 2024 End: June 23, 2024 Philip England MD Referring Provider Active Start : June 23, 2024 End: June 23, 2024 INFORMATION SOURCE (unrecogn ized section and content) DATE CREATED AUTHOR 06/03/2024 [facility] DATE CREATED AUTHOR AUTHOR'S ORGANIZ ATION 01/12/2025 [facility] FOR RECORDS PERTAINING TO PATIENTS WHO ARE OR HAVE BEEN ENROLLED IN A CHEMICAL DEPENDENCY/SUBSTANCEABUSE PROGRAM, SOME INFORMATION MAY BE OMITTED. This clinical summary was aggregated from multiple sources. Caution should be exercised in using it in the provision of clinical care. This summary normalizes information from multiple sources, and as a consequence, information in this document may materially change the coding, format and clinical context of patient data. In addition, data may be omitted in some cases. CLINICAL DECISIONS SHOULD BE BASED ON THE PRIMARY CLINICAL RECORDS. [facility] [employer] provides no warranty or guarantee of the accuracy or completeness of information in this document.
[2025-01-12 19:04] VITALS: BMI 42.1
[2025-01-12 19:48] VITALS: BP 158/75; PULSE 64; PULSE 65; RESP 16; RESP 18; TEMP 36.3; O2SAT 94; O2SAT 95; BMI 42.3
--- NOTE | 2025-01-12 20:40 | PCM.HP.STD ---
HPI - General General Date of Admission: 01/12/25 Date of Service: 01/12/25 Chief Complaint: Here for rehabilitation. HPI Narrative CARMEN TREJO, is a 69 F who presents with followin01/09/2025 [facility] ED Stroke Alert. Patient was home with her daughter in law, had abrupt change in mental status. Daughter in law called son, and son drove patient to [facility] ED immediately. Right upper extremity weakness, right paresthesia, right lower face numbness. Dysarthria, Expressive aphasia. Right hemianopsia. CT head negative, CTA head/neck negative LVO. NIHSS 16, profound right deficits, profound expressive aphasia. TNK given after consultation with stroke neurology. 01/09/2025 Admit [facility]. 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 Mild improvement after TNK. On triptans for migraine headaches, hold triptan in light of suspicion for stroke. Permissive HTN. 01/10/2025 Echo LVEF 65%. Bubble study negative. 01/10/2025 IV pain medications for migraine headaches. 01/10/2025 MRI negative for stroke. Aspirin, Atorvastatin for TIA. TIA versus complex migraine for right sided weakness, dysarthria. Severe OA right knee. PT/OT for SNF. 01/11/2025 Aspirin, Atorvastatin for aborted stroke/TIA. PT/OT/CM. 01/12/2025 Neurology diagnosed TNK aborted stroke. NIHSS 0. 01/12/2025 Admit to TCU with debility, here for rehabilitation, strengthening, prior to discharge home with family. [facility] Medical History (Updated 01/12/25 @ 20:[address] 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 Debility Home Medications Medication Instructions Recorded Last Taken Type atenolol 100 mg tablet 100 mg PO DAILY Blood pressure 01/09/25 Unknown History atorvastatin 40 mg tablet 40 mg PO DAILY Cholesterol 01/09/25 Unknown History levothyroxine 137 mcg tablet 137 mcg PO DAILY Hypothyroid 01/09/25 Unknown History lisinopril 5 mg tablet 2.5 mg PO DAILY Blood pressure 01/09/25 Unknown History CPAP - Continuous Positive Airway Pulmonary Information 01/10/25 Unknown History Pressure([facility] INFORMATIONAL USE ONLY) acetaminophen 325 mg tablet 650 mg (2 x 325 mg) PO Q6H PRN PRN 01/12/25 Unknown Rx Pain 1-10 Or Fever>100.7 #0 tabs aspirin 81 mg tablet,delayed 81 mg PO BREAKFAST Prophylaxis #0 01/12/25 Unknown Rx release tabs Allergy/AdvReac Type Severity Reaction Status Date / Time No Known Allergies Allergy Verified 01/09/25 15:01 Social History (Updated 01/12/25 @ 20:[address] Nikolay Rae MD) household members: children and other details: Lives with son, daughter in law. Smoking Status: Smoker, status unknown alcohol intake: never substance use type: does not use ROS Constitutional Constitutional: Reports weakness; Denies chills, fever(s) or weight gain ENT HEENT: Denies headache(s), nasal congestion or nasal discharge Cardiovascular Cardiovascular: Denies chest pain or palpitations Respiratory/Chest Respiratory/Chest: Denies cough, excessive phlegm production or shortness of breath with exertion Gastrointestinal Gastrointestinal: Denies abdominal pain, nausea or vomiting Genitourinary Genitourinary: Denies dysuria Musculoskeletal Musculoskeletal: Denies joint pain or joint swelling Integumentary Integumentary: Denies rash or wounds Neurologic Neurologic: Denies focal weakness, numbness or tingling Psychiatric Psychiatric: Denies anxiety, auditory hallucinations, depression, homicidal ideation or suicidal ideation Vital Signs Vital Signs Vital Signs: 01/12/25 19:48 Temperature 97.4 F L Temperature Source Temporal Pulse Rate 64 Respiratory Rate 18 Blood Pressure 158/75 H Blood Pressure Mean 102 Blood Pressure Source Monitor Blood Pressure Position Sitting Blood Pressure Location Right Arm Pulse Ox 94 Oxygen Delivery Method Room Air Weight Weight: 119.023 kg Body Mass Index (BMI) 42.3 Physical Exam Const alert General Appearance: cooperative HEENT normocephalic Eyes PERRL and EOMs intact bilaterally Neck supple, no JVD and no carotid bruits Resp normal respiratory effort, normal air movement and clear to auscultation bilaterally Cardio regular rate and regular rhythm GI normal to inspection, nondistended, normoactive bowel sounds, non-tender and non-distended Extremity normal capillary refill General Extremity: Negative for edema Skin no rashes or lesions noted General Skin Exam: no breakdown Neuro moves all extremities Psych affect normal Appearance: appropriate Assessment & Plan Assessment/Plan (1) Debility: (2) 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 Debility - PT/OT. Dysphagia - ST. Pain - Tylenol 650mg q6 prn. Bowel - senna/colace 1 tablet bid, Magnesium citrate 300mL daily prn. Adult immunization - Administer pneumonia vaccine, covid vaccine, flu vaccine as appropriate. DVT prophylaxis - Lovenox 40mg sc daily. TNK aborted stroke/TIA - Aspirin 81mg daily. Hypertension - Atenolol 100mg daily, Lisinopril 2.5mg daily. Hyperlipidemia - Atorvastatin 40mg qhs. Hypothyroidism - Levothyroxine 137mcg daily.
[2025-01-13 06:40] LABS: Hematocrit 40.9 % (37-47); Hemoglobin 13.8 g/dL (12.0-15.0); Immature Granulocytes Count 0.030 X10^3/uL (0.0-0.0); Mean Corp Hgb Conc 33.7 g/dL (32-36); Mean Corpuscular Volume 92.3 fL (81-99); Mean Platelet Vol. 10.5 fl (6.2-12.0); NRBC Flagged by Analyzer 0 % (0-5); Platelet Count 221 K/mm3 (150-450); RBC Distribution Width CV 12.4 % (11.6-14.6); RBC Distribution Width SD 42.5 fl (35.1-43.9); Red Blood Count 4.43 M/mm3 (4.2-5.4); White Blood Count 9.9 K/mm3 (4.4-11.0)
[2025-01-13 07:53] LABS: Anion Gap 11 (5-15); BUN 22 mg/dL (4-19); BUN/Creat Ratio 17.4 RATIO (10-20); Calcium,Total 8.9 mg/dL (7.6-11.0); Carbon Dioxide 25.8 mmol/L (21.0-32.0); Chloride 103 mmol/L (98-108); Estimated Creatinine Clearance 54.81 ml/min (50-250); Glucose 83 mg/dL (70-99); Potassium 4.3 mmol/L (3.3-5.1)
[2025-01-13] MEDS: Aspirin E.C. 81 MG Tablet PO (08:25)
[2025-01-13] MEDS: 0.9% Saline Lock 10 ML Syringe IV ×2 (08:26→20:05)
[2025-01-13 08:30] VITALS: BP 129/55; PULSE 62; RESP 18; TEMP 36; O2SAT 93
[2025-01-13 10:00] VITALS: PULSE 65; RESP 18; O2SAT 94
[2025-01-13] MEDS: Tuberculin,Purif.prot.deriv. 50 TU/ML Vial 0.1 ML ID (11:13)
--- NOTE | 2025-01-13 12:01 | NURSING ---
Dr walls notified of elevated SBP's 150's & family concern regarding continued KIRK's. new orders to dc lisinopril start losartan 100mg daily 1st dose now, increase tylenol 1000mg Q6hrs & PRN tramadol 50mg Q6h pain 6-10.
[2025-01-13 13:02] VITALS: BP 144/72; PULSE 66
[2025-01-14] MEDS: Aspirin E.C. 81 MG Tablet PO (08:45)
[2025-01-14 08:49] VITALS: BP 125/78; PULSE 59; RESP 18; TEMP 35.9; O2SAT 94
--- NOTE | 2025-01-14 10:54 | NURSING ---
OK PER FOR PT TO HAVE MALKA ON 01/20/25 FROM 2P-4P.
[2025-01-14 14:00] VITALS: PULSE 59; RESP 18; O2SAT 97
[2025-01-14] MEDS: 0.9% Saline Lock 10 ML Syringe IV (22:28)
[2025-01-15 01:50] VITALS: PULSE 60; RESP 18; O2SAT 95
[2025-01-15 09:05] VITALS: BP 175/76; PULSE 62; RESP 18; TEMP 36.4; O2SAT 94
[2025-01-15] MEDS: Aspirin E.C. 81 MG Tablet PO (09:09)
--- NOTE | 2025-01-15 11:49 | NURSING ---
Offered covid vaccine, VIS provided. Resident declines.
--- NOTE | 2025-01-15 13:17 | MDS.RN ---
MDS entry tracker complete, pain assessed.
--- NOTE | 2025-01-15 15:02 | CASEMGMT ---
Social Work SW met with pt and completed initial assessment. Contacts were verified. Pt confirms code status as DNRCCA no intubation. SW educated pt to [facility] insurance and that NRD is 01/15 and continued stay is not guaranteed with each review. Pt moved from her home in [place] 4 months ago to live with her son and daughter in law. Pt lives in a split level home with multiple steps throughout. Pt was independent with personal care prior to hospitalization and pt and DIL share IADLl tasks. Pt's DIL does not work outside the home and is able to assist pt as needed. Pt plans to return to her sons homee at time of dc. SW to continue to follow for dc planning. CHIDI Flores
--- NOTE | 2025-01-15 15:19 | PCM.PN.DRR ---
Documented by User: Priya Gonzales 01/15/25 15:41 TCU RX Drug Regimen Review Subjective/Objective Subjective/Objective Subjective: TCU Admission. 69 YOF presented to the ER as a stroke alert. Hospitalized for TNK aborted stroke. Admitted to TCU with debility for strengthening and rehabilitation. Objective: Allergies No Known Allergies Allergy (Verified 01/09/25 15:01) Current Medications Generic Name Dose Route Start Last Admin Trade Name Freq PRN Reason Stop Dose Admin Acetaminophen 1,000 mg 01/13/25 12:00 01/14/25 06:24 Acetaminophen 500 Mg Tablet PO 1,000 mg Q6H PRN PRN Administration Pain 1-5 Aspirin 81 mg 01/13/25 08:00 01/15/25 09:09 Aspirin E.C. 81 Mg Tablet PO 81 mg BREAKFAST SHIRLEY Administration Atenolol 100 mg 01/13/25 10:00 01/15/25 09:09 Atenolol 100 Mg Tablet PO 100 mg DAILY SHIRLEY Administration Protocol Atorvastatin Calcium 40 mg 01/12/25 22:00 01/14/25 22:28 Atorvastatin Calcium 40 Mg Tablet PO 40 mg QHS SHIRLEY Administration Enoxaparin Sodium 40 mg 01/13/25 06:00 01/15/25 05:17 Enoxaparin 40 Mg/0.4 Ml Syringe SC 40 mg DAILY@0600 SHIRLEY Administration Sodium Chloride 250 mls @ 15 mls/hr 01/12/25 19:53 IV .[id number] PRN Saline Flush Sodium Chloride 250 mls @ 15 mls/hr 01/12/25 19:53 IV .[id number] PRN Additional IVPB Infusion Levothyroxine Sodium 137 mcg 01/13/25 06:00 01/15/25 05:17 Levothyroxine 137 Mcg Tablet PO 137 mcg DAILY@0600 SHIRLEY Administration Losartan Potassium 100 mg 01/13/25 12:00 01/15/25 09:08 Losartan Potassium 100 Mg Tablet PO 100 mg DAILY SHIRLEY Administration Protocol Magnesium Citrate 300 ml 01/12/25 20:51 Magnesium Citrate 300 Ml PO DAILY PRN Constipation Magnesium Hydroxide 30 ml 01/12/25 19:09 Magnesium Hydroxide 30 Ml Udc PO DAILY PRN PRN Constipation Senna/Docusate Sodium 1 tablet 01/12/25 22:00 01/15/25 09:07 Senna/Docusate Sodium 1 Tablet PO Not Given BID SHIRLEY Sodium Chloride 10 - 40 ml 01/12/25 19:53 01/14/25 22:28 0.9% Saline Lock 10 Ml Syringe IV 10 ml UD PRN Administration SALINE FLUSH Tramadol HCl 50 mg 01/13/25 12:00 01/14/25 08:44 Tramadol 50 Mg Tablet PO 50 mg Q6H PRN PRN Administration Pain Score 6-10 or Pre PT/OT Tuberculin PPD 0.1 ml 01/20/25 10:00 Tuberculin,Purif.Prot.Deriv. 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 (Acute) Debility (Acute) Vital Signs Temp Pulse Resp BP Pulse Ox O2 Del Method FiO2 97.5 F L 62 18 175/76 H 94 Room Air 21 01/15/25 09:05 01/15/25 09:05 01/15/25 09:05 01/15/25 09:05 01/15/25 09:05 01/15/25 09:05 01/13/25 00:50 Oxygen Delivery Method Room Air Weight: 119.023 kg Body Mass Index (BMI) 42.3 Sodium 140 mmol/L (133-145) 01/13/25 06:21 Potassium 4.3 mmol/L (3.3-5.1) 01/13/25 06:21 Chloride 103 mmol/L (98-108) 01/13/25 06:21 Carbon Dioxide 25.8 mmol/L (21.0-32.0) 01/13/25 06:21 Anion Gap 11 (5-15) 01/13/25 06:21 BUN 22 mg/dL (4-19) H 01/13/25 06:21 Creatinine 1.29 mg/dL (0.70-1.20) H 01/13/25 06:21 Est GFR (MDRD) Non-Af 45 (>60) L 01/13/25 06:21 BUN/Creatinine Ratio 17.4 RATIO (10-20) 01/13/25 06:21 Glucose 83 mg/dL (70-99) 01/13/25 06:21 Assessment/Plan: 1. Pain: acetaminophen 1000mg PO Q6H PRN pain 1-5 (3 doses given for pain scores of 5-8 in the head) and tramadol 50mg PO Q6H PRN pain 6-10 (2 doses given for pain scores of 8 and 10 in the head). Reviewed pain scores before and after administration. Monitor pain scores before/after prn administration for response, PRN pain medication usage, symptoms of pain/resident distress and ability to participate in therapy. Monitor for constipation (last BM:01/13/25), respiratory depression (current RR range:59-66), falls and sedation/delirium ([facility]). 2. Bowel: senna/docusate 1T PO BID, MOM 30mL PO daily PRN constipation and magnesium citrate 300mL PO daily PRN constipation. Resident has refused all doses of senna/docusate, please consider changing to PRN constipation. Thanks. Resident has not received prn doses since admission. Last document bowel movement:01/13/25. Monitor for usage of prn medications, abdominal pain, frequency of bowel movements, diarrhea. Recommend holding bowel regimen if resident develops diarrhea. 3. DVT prophylaxis: enoxaparin 40mg SC daily. Please continue to monitor for S/S of bleeding/DVT, hemoglobin (last 13.8g/dL), platelets (Last 221,000). Enoxaparin is a renally dosed medication. CrCl estimated =54 mL/min. Dose appropriate for current renal function. Monitor serum creatine periodically. 4. TNK aborted stroke/TIA: aspirin 81mg PO daily. Please continue to monitor for S/S of bleeding/bruising and hemoglobin. 5. Hypertension: atenolol 100mg PO daily and losartan 100mg PO daily. Monitor serum potassium (last K =4.3mmol/L), renal function (SCr =1.29mg/dL). BP range since admission =125/78-175/76, HR range since admission 59-66. BP control appropriate at this time. Monitor blood pressure, heart rate, symptoms of orthostasis, dizziness. Consider checking orthostatic blood pressure and implementing fall precautions with any indication of orthostatic hypotension. 6. Hyperlipidemia: atorvastatin 40mg PO QHS. Last FLP =01/09/25. LDL at goal at last check for patient. Please continue to monitor for muscle pain and LFTs (last 06/23/24). 7. Hypothyroidism: levothyroxine 137mcg PO daily. Please continue to monitor TSH (last 01/09/25) and S/S of hypo/hyperthyroidism. 8. Diabetes mellitus II: Ozempic was d/c'ed upon discharge from hospital but hemoglobin A1c was 6.4% on 01/09/25. However, blood sugars have been mostly controlled with the exception of a low of 66. Please consider restarting Ozempic or another medication for diabetes if blood sugars begin to run high. Assessment/Plan for indications treated with psychotropic medications: Resident is not prescribed scheduled or prn psychotropic medications at the time of this drug regimen review. Medical chart and medication regimen reviewed. The following medication irregularities or issues were identified: 1. Senna/docusate 1T PO BID. Resident has refused all doses of senna/docusate, please consider changing to PRN constipation. Thanks. 2. Diabetes mellitus II: Ozempic was d/c'ed upon discharge from hospital but hemoglobin A1c was 6.4% on 01/09/25. However, blood sugars have been mostly controlled with the exception of a low of 66. Please consider restarting Ozempic or another medication for diabetes if blood sugars begin to run high. Date Date of Note: 01/15/25 Documented by User: Dr. Nikolay Rae MD 01/15/25 16:23 TCU RX Drug Regimen Review Provider Comments Provider responsibility Provider Comments to Recommendations by Pharmacy Agree
[2025-01-15] MEDS: 0.9% Saline Lock 10 ML Syringe IV (20:40)
--- NOTE | 2025-01-15 20:42 | NURSING ---
pt requested medications early during 1999 rounds
[2025-01-16 00:01] LABS: Mucous, Urine 0 SEEN /hpf (<or=2+)
[2025-01-16 00:05] LABS: Color, Urine Straw (Yellow); Glucose, Dipstick Normal (Normal); Ketone-Dipstick Negative (Negative); Leukocyte Esterase-Dipstick Negative /ul (Negative); Nitrite-Dipstick Negative (Negative); Occult Blood-Urine 10 /ul (Negative); Protein-Dipstick 15 mg/dl (Negative); Specific Gravity, Urine 1.005 (1.002-1.030); Urine Bilirubin Dipstick Negative (Negative)
[2025-01-16 00:56] LABS: Red Blood Cells-Urine 0-5 SEEN /hpf (0-5); Squamous Epithelial Cells - UA 0-5 SEEN /hpf (5-10)
[2025-01-16 09:35] VITALS: BP 149/77; PULSE 70; O2SAT 93
[2025-01-16] MEDS: Aspirin E.C. 81 MG Tablet PO (09:40)
[2025-01-16 09:50] VITALS: BP 112/61; PULSE 70; RESP 16; TEMP 36.3; O2SAT 95
[2025-01-17] MEDS: Aspirin E.C. 81 MG Tablet PO (07:44)
[2025-01-17 07:46] VITALS: BP 134/71; PULSE 61; RESP 18; TEMP 36.4; O2SAT 94
--- NOTE | 2025-01-17 12:42 | NURSING ---
Audit Specialist Note; Activity Asset: Eugene Cunha is independent in her choice of daily activities. Her family visits daily, she has her smart phone she uses for communication, games and music. She welcomes the therapy dog but no sawmill equipment operator please. Staff will encourage social activities, remind her of weekly activities and respect her right to say no.
--- NOTE | 2025-01-17 13:08 | CASEMGMT ---
Social Work IDT met with patient and DIL for care plan meeting. Discussed patient's progress in PT/OT/ST/SN/RDN. Educated to [facility] insurance with NRD 01/19 and continued stay is not guaranteed with each review. Provided pt/family with written communication of insurance process and copay coverage during stay. Pt will DC home with son and DIL. DIL is [employer] home and OCEAN FREIGHT MANAGER by [employer] and can assist pt. Their home is a split-level and will need to be safe navigating steps prior to DC. SW provided resources for grab bars and medical alert. SW educated to HHC vs OP. DIL prefers HHC. SW to coordinate at DC. Pt has no DME. SW to coordinate FWW and any other identified needs. OT educated to DME requested to purchase OOP. DIL appreciative. SW will continue to follow for DC planning. Yadira Palomo MSW SENIOR ACCOUNTING ASSOCIATE
--- NOTE | 2025-01-17 20:40 | NURSING ---
c/o ongoing headache, pt had tylenol 1830, not time to administer tylenol yet. Advised patient the only prn pain medication on her list was Tramadol. Patient requested to try Tramadol. Will continue to monitor
--- NOTE | 2025-01-17 21:40 | NURSING ---
entered pt room, pt in bathroom. Patient was struggling to put pants on. Pt had both legs in one leg of pants, had brief completely on the wrong way. Nurse assisted pt with personal care, back to bed
[2025-01-18 07:56] VITALS: BP 122/55; PULSE 68; RESP 16; TEMP 36.2; O2SAT 93
[2025-01-18] MEDS: Aspirin E.C. 81 MG Tablet PO (07:59)
--- NOTE | 2025-01-18 08:59 | NURSING ---
Resident having confusion starting yesterday. Overnight getting up on own to go to the restroom, confused to situation. UA ok. MRI ordered to evaluate change in mental status.
--- NOTE | 2025-01-18 10:32 | NURSING ---
Auth received for MRI head, no contrast. Auth #[id number].
[2025-01-18 12:53] VITALS: BP 140/62; PULSE 67
--- NOTE | 2025-01-18 13:11 | CASEMGMT ---
Social Work SW responded to stroke alert. No family present. Pt receiving care from medical staff. No SW needs present. Pt transferred to ED. SW left VM with ED SW with a hand off to follow for any needs. Yadira Palomo CLINICAL PHARMACY SPECIALIST CHANNEL WORKER
--- NOTE | 2025-01-18 13:18 | NURSING ---
TROLLEY COLLECTOR notified staff of pt c/o numbness left arm and side of face. This nurse entered bathroom where pt was sitting, noted some lack of coordination and some slurred speech, but still A&Ox3. BP and blood sugar taken WNL. Stroke alert called at 1249. Staff x4 assisted pt into bed as she was deteriorating quickly. PURCHASING EXPEDITOR arrived and pt transferred to ED. Daughter notified and Dr Rae.
--- NOTE | 2025-01-18 15:45 | NURSING ---
pt returned to unit from ED
[2025-01-18 15:55] VITALS: BP 121/57; PULSE 72
[2025-01-18 21:30] VITALS: PULSE 67; RESP 17
[2025-01-18] MEDS: 0.9% Saline Lock 10 ML Syringe IV (21:36)
[2025-01-19 05:57] LABS: Hematocrit 39.5 % (37-47); Hemoglobin 13.0 g/dL (12.0-15.0); Immature Granulocytes Count 0.030 X10^3/uL (0.0-0.0); Mean Corp Hgb Conc 32.9 g/dL (32-36); Mean Corpuscular Volume 95.2 fL (81-99); Mean Platelet Vol. 10.9 fl (6.2-12.0); NRBC Flagged by Analyzer 0 % (0-5); Platelet Count 236 K/mm3 (150-450); RBC Distribution Width CV 12.9 % (11.6-14.6); RBC Distribution Width SD 45.1 fl (35.1-43.9); Red Blood Count 4.15 M/mm3 (4.2-5.4); White Blood Count 9.5 K/mm3 (4.4-11.0)
[2025-01-19 06:17] LABS: Anion Gap 9 (5-15); BUN 35 mg/dL (4-19); BUN/Creat Ratio 24.8 RATIO (10-20); Calcium,Total 8.5 mg/dL (7.6-11.0); Carbon Dioxide 25.5 mmol/L (21.0-32.0); Chloride 102 mmol/L (98-108); Estimated Creatinine Clearance 49.80 ml/min (50-250); Glucose 97 mg/dL (70-99); Potassium 4.4 mmol/L (3.3-5.1)
[2025-01-19 08:23] VITALS: BP 134/66; PULSE 66; RESP 16; TEMP 36.2; O2SAT 94
[2025-01-19] MEDS: Aspirin E.C. 81 MG Tablet PO (08:25)
[2025-01-19] MEDS: AMOXICILLIN 500 MG CAPSULE PO ×3 (08:29→20:35)
--- NOTE | 2025-01-19 09:15 | NURSING ---
Off unit to MRI via at 0840
--- NOTE | 2025-01-19 10:04 | NURSING ---
Brand Advisor Note; MDS for 01/19/2025 Complete
--- NOTE | 2025-01-19 11:55 | NURSING ---
Planning to have EEG later today after after lunch. Paper order signed by Dr. Rae and EEG staff picked it up this morning.
--- NOTE | 2025-01-19 14:11 | CASEMGMT ---
BIMS (11/27) and PHQ2 interviews completed on this date for MDS assessment. CHIDI Flores
--- NOTE | 2025-01-20 02:48 | NURSING ---
When completing rounds, bathroom light noted to be on. Patient was in bed. Asked aides if either one of them had walked patient to bathroom recently. They both replied "no". Suspect that patient took self to bathroom. Unable to set bed exit alarm on bed. Will request order for bed pad alarm.
[2025-01-20] MEDS: AMOXICILLIN 500 MG CAPSULE PO ×3 (05:57→22:26)
[2025-01-20 09:30] VITALS: BP 128/65; PULSE 71; RESP 17; TEMP 36.2; O2SAT 97
[2025-01-20] MEDS: Aspirin E.C. 81 MG Tablet PO (09:32)
[2025-01-20] MEDS: Tuberculin,Purif.prot.deriv. 50 TU/ML Vial 0.1 ML ID (11:08)
--- NOTE | 2025-01-20 14:13 | NURSING ---
pt left unit for doctor approved MALKA
--- NOTE | 2025-01-20 17:15 | NURSING ---
pt returned to unit from [facility]
--- NOTE | 2025-01-20 17:54 | NURSING ---
While pt was away on her MALKA she notified this nurse when she returned that she had 3 episodes of her "brain flipping" describes it as her brain is moving fast and things get dark around her., vitals are stable. no visible deficits. notified Butch Nova via text no new orders.
[2025-01-20 22:30] VITALS: PULSE 65; RESP 16
[2025-01-21] MEDS: AMOXICILLIN 500 MG CAPSULE PO ×3 (05:52→23:04)
[2025-01-21 09:56] VITALS: BP 141/66; PULSE 67; RESP 17; TEMP 36.4; O2SAT 97
[2025-01-21] MEDS: Aspirin E.C. 81 MG Tablet PO (09:59)
[2025-01-22] MEDS: AMOXICILLIN 500 MG CAPSULE PO ×3 (04:43→20:11)
[2025-01-22 09:03] VITALS: BP 119/58; PULSE 63; RESP 17; TEMP 36.6; O2SAT 95
[2025-01-22] MEDS: Aspirin E.C. 81 MG Tablet PO (09:04)
[2025-01-22 10:00] VITALS: PULSE 63; RESP 17
[2025-01-23 04:54] VITALS: BMI 41.3
[2025-01-23] MEDS: AMOXICILLIN 500 MG CAPSULE PO ×3 (05:37→20:29)
[2025-01-23] MEDS: Aspirin E.C. 81 MG Tablet PO (08:28)
[2025-01-23 09:00] VITALS: BP 138/62; PULSE 60; RESP 16; TEMP 36.9; O2SAT 93
[2025-01-24] MEDS: AMOXICILLIN 500 MG CAPSULE PO ×3 (06:18→21:44)
[2025-01-24] MEDS: Aspirin E.C. 81 MG Tablet PO (07:43)
[2025-01-24 08:03] VITALS: BP 137/62; PULSE 61; RESP 16; TEMP 36.6; O2SAT 94
--- NOTE | 2025-01-24 10:13 | CASEMGMT ---
Social Work Insurance issued LCD 01/26, DC 01/27 SW phoned son, Juliano, to inform of DC date and appeal rights. Son agreeable for pt to return home. SW stressed pt's need for 24/7 hands-on care. Son confirmed is home with pt and can assist. IDT recommending skilled HHC. Son agreeable. SW to provide list of skilled HHC agencies within geographical area, INN with insurance, that include quality and resource data via [employer] guide, and will leave in pt's room. Family to review and notify this worker of choices. SW confirmed need for FWW and 3-in-1 commode at DC. SW to coordinate with [facility]. Family can transport. No other needs noted. Son appreciative. Plan: DC home with family 01/27, HHC PT/OT/ST/SN, FWW, 3-in-1 commode. Yadira Palomo INFANTRY ASSAULTMAN RAILROAD CAR CLEANER
--- NOTE | 2025-01-24 12:29 | MDS.RN ---
Information for the MDS was obtained from review of the clinical record, interview of resident, staff, and direct observation of resident’s care.
--- NOTE | 2025-01-24 19:39 | DS.PCM_ITS ---
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: Status: Acute Code(s): I63.9 - Cerebral infarction, unspecified (3) Right hemiparesis: Status: Acute Code(s): G81.91 - Hemiplegia, unspecified affecting right dominant side (4) Migraine: Status: Acute Code(s): G43.909 - Migraine, unspecified, not intractable, without status migrainosus (5) Osteoarthritis of right knee: Status: Acute Code(s): M17.11 - Unilateral primary osteoarthritis, right knee (6) Type 2 diabetes mellitus with hyperglycemia: Status: Acute Code(s): E11.65 - Type 2 diabetes mellitus with hyperglycemia (7) Essential (primary) hypertension: Status: Acute Code(s): I10 - Essential (primary) hypertension (8) Hyperlipidemia, unspecified: Status: Acute Code(s): E78.5 - Hyperlipidemia, unspecified (9) Hypothyroidism: Status: Acute Code(s): E03.9 - Hypothyroidism, unspecified Plan 69 year old female with below past medical history hospitalized for TNK aborted stroke, admitted to TCU with debility, here for rehabilitation, strengthening, prior to discharge home with family. * Debility - PT/OT. * Dysphagia - ST. * Pain - Tylenol 650mg q6 prn. * Bowel - senna/colace 1 tablet bid, Magnesium citrate 300mL daily prn. * Adult immunization - Administer pneumonia vaccine, covid vaccine, flu vaccine as appropriate. * DVT prophylaxis - Lovenox 40mg sc daily. * TNK aborted stroke/TIA - Aspirin 81mg daily. * Hypertension - Atenolol 100mg daily, Lisinopril 2.5mg daily. * Hyperlipidemia - Atorvastatin 40mg qhs. * Hypothyroidism - Levothyroxine 137mcg daily. Medications at Discharge Home Medications atenolol 100 mg tablet 100 mg PO DAILY Blood pressure 01/09/25 atorvastatin 40 mg tablet 40 mg PO DAILY Cholesterol 01/09/25 levothyroxine 137 mcg tablet 137 mcg PO DAILY Hypothyroid 01/09/25 CPAP - Continuous Positive Airway Pressure([facility] INFORMATIONAL USE ONLY) Pulmonary Information 01/10/25 aspirin 81 mg tablet,delayed release 81 mg PO BREAKFAST Prophylaxis #0 tabs 01/12/25 acetaminophen 500 mg tablet 1,000 mg (2 x 500 mg) PO Q6H PRN PRN Pain 1-5 #0 tabs 01/24/25 amlodipine 10 mg tablet 10 mg PO DAILY 30 days #30 tabs 01/24/25 citalopram 10 mg tablet 10 mg PO DAILY 30 days #30 tabs 01/24/25 losartan 100 mg tablet 100 mg PO DAILY 30 days #30 tabs 01/24/25 Hospital Course Operations None Procedures Electroencephalogram Summary of Care Provided Minutes Spent on Discharge: 35 Hospital Course: 69 year old female with below past medical history hospitalized for TNK aborted stroke, admitted to TCU with debility, here for rehabilitation, strengthening, prior to discharge home with family. 01/09/2025 MRI brain negative for stroke. 01/15/2025 Aerococcus urinae urinary tract infection treated with amoxicillin. 01/19/2025 MRI brain negative for stroke. 01/22/2025 EEG negative for seizure. Working diagnosis is TNK aborted stroke versus migraine headache. Consider 30 day event recorder to rule out atrial fibrillation, Consider Neurology referral. Discharge home with family 01/27/2025, [facility] PT/OT/ST/SN, FWW, 3-in-1 commode. FWW: Patient is unsafe to use a cane and requires a walker for ambulation in the home and the community. 3-in-1 commode: Patient is confined to a single room unable to safely access toilet. Patient is confined to one level of the home environment and there is no toilet on that level. Physical Exam Const alert General Appearance: cooperative HEENT normocephalic Eyes PERRL and EOMs intact bilaterally Neck supple, no JVD and no carotid bruits Resp normal respiratory effort, normal air movement and clear to auscultation bilaterally Cardio regular rate and regular rhythm GI normal to inspection, nondistended, normoactive bowel sounds, non-tender and non-distended Extremity normal capillary refill General Extremity: Negative for edema Skin no rashes or lesions noted General Skin Exam: no breakdown Psych affect normal Appearance: appropriate Weight / BMI Weight Weight: 116.346 kg Body Mass Index (BMI) 41.3 ABG / Lab / Microbiology Data 01/19/25 05:14 01/19/25 05:14 Laboratory: Laboratory Results - last 24 hr 01/24/25 06:15: POC Glucose 88 01/24/25 16:34: POC Glucose 75 Microbiology: Microbiology 01/15/25 22:27 Urine, Clean Catch Urine Culture - Final Aerococcus urinae D/C Instructions Discharge Activity: Return to Normal Activity, May Shower and Use Walker Weight Bearing Status: Weight bearing as tolerated Call your doctor if you observe: Fever of 101 or Higher, Inability to urinate, Inability to have a bowel movement, Shortness of breath, Dizziness, Fainting spells, Swelling in the ankles, Chest pain and Uncontrolled pain DC O2, CPAP, BIPAP Needs Home O2 Discharge instructions: No Additional Instructions: Discharge home with family 01/27/2025, [facility] PT/OT/ST/SN, FWW, 3-in-1 commode. FWW: Patient is unsafe to use a cane and requires a walker for ambulation in the home and the community. 3-in-1 commode: Patient is confined to a single room unable to safely access toilet. Patient is confined to one level of the home environment and there is no toilet on that level. Please Follow Up With: [facility] When: 2 weeks. Meaningful Use Info Meaningful Use Meaningful Use Diagnoses (Choose all that apply): None applicable Discharge Plan Admission Admit Date/Time: 01/12/25 18:45 Primary Reason for Your Visit: Debility. Attending Provider: Nikolay Rae Chi Primary Care Provider: Philip England Instructions Additional Instructions / Restrictions: Discharge home with family 01/27/2025, [facility] PT/OT/ST/SN, FWW, 3-in-1 commode. FWW: Patient is unsafe to use a cane and requires a walker for ambulation in the home and the community. 3-in-1 commode: Patient is confined to a single room unable to safely access toilet. Patient is confined to one level of the home environment and there is no toilet on that level. Discharge Orders/Prescriptions Prescriptions: New citalopram 10 mg Tablet 10 mg PO DAILY 30 Days Qty: 30 0RF acetaminophen 500 mg Tablet 1,000 mg PO Q6H PRN PRN (Reason: Pain 1-5) Qty: 0 0RF amlodipine 10 mg Tablet 10 mg PO DAILY 30 Days Qty: 30 0RF losartan 100 mg Tablet 100 mg PO DAILY 30 Days Qty: 30 0RF Continued atorvastatin 40 mg tablet 40 mg PO DAILY atenolol 100 mg tablet 100 mg PO DAILY levothyroxine 137 mcg tablet 137 mcg PO DAILY CPAP - Continuous Positive Airway Pressure([facility] INFORMATIONAL USE ONLY) Patient Comments: Patient does not know if she uses CPAP or Bipap or settings Rx Instructions: As Directed aspirin 81 mg Tablet,Delayed Release (Dr/Ec) 81 mg PO BREAKFAST Qty: 0 0RF Discontinued lisinopril 5 mg tablet 2.5 mg PO DAILY acetaminophen 325 mg Tablet 650 mg PO Q6H PRN PRN (Reason: Pain 1-10 Or Fever>100.7) Qty: 0 0RF Referrals / Follow Up: Philip England MD [Primary Care Provider, Family Practice] - 02/06/25 3:30 pm Dawit Vera DO [Med Staff - Active Staff, Cardiology] - 02/01/25 9:00 am Disposition Disposition (needs filled in before D/C Order can be placed): Home Health Service
[2025-01-25] MEDS: AMOXICILLIN 500 MG CAPSULE PO ×3 (06:14→21:59)
[2025-01-25 09:27] VITALS: BP 130/64; PULSE 68; RESP 18; TEMP 36.4; O2SAT 92
[2025-01-25] MEDS: Aspirin E.C. 81 MG Tablet PO (09:29)
--- NOTE | 2025-01-25 12:43 | CASEMGMT ---
Addendum entered by Fabi Finley 01/25/25 14:12: [facility] accepted and will plan intake Wednesday. SW called and left a voicemail for son with acceptance notification, but no pt identifying information. SAUNDRA updated TCU SAUNDRA. CHIDI Holder Original Note: Social Work- SW called pt son to follow up on choices for HHC. Pt son reported selection of [facility] as provider of choice and [facility] as alternate. Pt will d/c Sat to pt son home where she resides with son and LEILA, who is a [facility]. SAUNDRA called and provided referral to [facility]. SAUNDRA updated TCU SAUNDRA. SAUNDRA remains available to follow. CHIDI Holder
[2025-01-26] MEDS: AMOXICILLIN 500 MG CAPSULE PO (05:38)
[2025-01-26 05:52] LABS: Hematocrit 36.0 % (37-47); Hemoglobin 12.1 g/dL (12.0-15.0); Immature Granulocytes Count 0.020 X10^3/uL (0.0-0.0); Mean Corp Hgb Conc 33.6 g/dL (32-36); Mean Corpuscular Volume 93.5 fL (81-99); Mean Platelet Vol. 10.4 fl (6.2-12.0); NRBC Flagged by Analyzer 0 % (0-5); Platelet Count 203 K/mm3 (150-450); RBC Distribution Width CV 12.7 % (11.6-14.6); RBC Distribution Width SD 43.6 fl (35.1-43.9); Red Blood Count 3.85 M/mm3 (4.2-5.4); White Blood Count 8.6 K/mm3 (4.4-11.0)
[2025-01-26 06:25] LABS: Anion Gap 10 (5-15); BUN 30 mg/dL (4-19); BUN/Creat Ratio 23.6 RATIO (10-20); Calcium,Total 8.7 mg/dL (7.6-11.0); Carbon Dioxide 23.8 mmol/L (21.0-32.0); Chloride 103 mmol/L (98-108); Estimated Creatinine Clearance 55.40 ml/min (50-250); Glucose 90 mg/dL (70-99); Potassium 4.3 mmol/L (3.3-5.1)
[2025-01-26 07:36] VITALS: BP 117/62; PULSE 61; RESP 18; TEMP 36.3; O2SAT 91
[2025-01-26] MEDS: Aspirin E.C. 81 MG Tablet PO (07:37)
--- NOTE | 2025-01-26 13:45 | MDS.RN ---
Pain assessment for MDS complete.
--- NOTE | 2025-01-26 17:08 | CASEMGMT ---
Social Work SW completed BIMS (11/27) and PHQ-2 () for MDS assessment. Yadira Palomo FRONT END TECHNICIAN EGG PASTEURIZER
[2025-01-27 05:45] VITALS: O2SAT 94
[2025-01-27 08:14] VITALS: BP 117/61; PULSE 66; RESP 17; TEMP 36.9; O2SAT 94
[2025-01-27] MEDS: Aspirin E.C. 81 MG Tablet PO (08:17)
== END 2025-01-27 11:10 | disposition home health service (06) | DRG 57 ==
PROVIDERS: Admitting Provider Family Medicine Geriatric Medicine; PCP Family Medicine; Visit Provider Family Medicine Geriatric Medicine
DX: I69.351 Hemiplegia and hemiparesis following cerebral infarction affecting right dominant side (principal); N39.0 Urinary tract infection, site not specified; H53.47 Heteronymous bilateral field defects; I69.320 Aphasia following cerebral infarction; E11.65 Type 2 diabetes mellitus with hyperglycemia; E03.9 Hypothyroidism, unspecified; B96.89 Other specified bacterial agents as the cause of diseases classified elsewhere; F32.9 Major depressive disorder, single episode, unspecified; I10 Essential (primary) hypertension; M17.11 Unilateral primary osteoarthritis, right knee; G43.909 Migraine, unspecified, not intractable, without status migrainosus; E78.5 Hyperlipidemia, unspecified; I69.322 Dysarthria following cerebral infarction; I69.398 Other sequelae of cerebral infarction; Z79.82 Long term (current) use of aspirin; Z79.890 Hormone replacement therapy; Z79.899 Other long term (current) drug therapy; Z79.85 Long-term (current) use of injectable non-insulin antidiabetic drugs
CPT/HCPCS: 36415; 80048; 81001; 82962; 85025; 87077; 87086; 87088; 92507; 92523; 92526; 92610; 92611; 94660; 97110; 97116; 97129; 97130; 97162; 97165; 97530; 97535; 97802; A4216

== ENCOUNTER 2025-01-18 12:54 | Emergency (ER) | payer MEDICARE, SELFPAY ==
[2025-01-18] VITALS (7 sets, daily range): BP systolic 101–161; BP diastolic 54–80; PULSE 67–73; RESP 14–18; TEMP 36.6–36.8; O2SAT 92–98; BMI 42.3
--- NOTE | 2025-01-18 12:55 | CT_ITS ---
EXAM: CT/STROKE Brain/Head without Cont
--- NOTE | 2025-01-18 12:56 | CT_ITS ---
PROCEDURE: CT/STROKE CTA Head AND Neck W/Con
--- NOTE | 2025-01-18 13:02 | EX.ED.DYSGE1 ---
HPI History of Present Illness Chief Complaint: Stroke Alert Narrative Narrative: Patient is a 69-year-old female with a past medical history of hypertension, type 2 diabetes, hypothyroidism who presented to the emergency department from upstairs as a stroke alert. Her last known well was 12:50 PM[address] According to hospital Dr. Oscar he states that she recently just received tenecteplase for a stroke and notes that earlier today she had been up walking talking and was noted to have left-sided weakness and difficulty speaking therefore she was called a stroke alert and brought down here. [facility] Medical History Hypothyroidism Hyperlipidemia, unspecified Essential (primary) hypertension Type 2 diabetes mellitus with hyperglycemia Osteoarthritis of right knee Migraine Right hemiparesis Stroke aborted by administration of thrombolytic agent Debility Home Medications ?Medication ?Instructions ?Recorded ?Last Taken ?Type atenolol 100 mg tablet 100 mg PO DAILY Blood pressure 01/09/25 Unknown History atorvastatin 40 mg tablet 40 mg PO DAILY Cholesterol 01/09/25 Unknown History levothyroxine 137 mcg tablet 137 mcg PO DAILY Hypothyroid 01/09/25 Unknown History lisinopril 5 mg tablet 2.5 mg PO DAILY Blood pressure 01/09/25 Unknown History CPAP - Continuous Positive Airway Pulmonary Information 01/10/25 Unknown History Pressure([facility] INFORMATIONAL USE ONLY) acetaminophen 325 mg tablet 650 mg (2 x 325 mg) PO Q6H PRN PRN 01/12/25 Unknown Rx Pain 1-10 Or Fever>100.7 #0 tabs aspirin 81 mg tablet,delayed 81 mg PO BREAKFAST Prophylaxis #0 01/12/25 Unknown Rx release tabs Allergy/AdvReac Type Severity Reaction Status Date / Time No Known Allergies Allergy Verified 01/09/25 15:01 Social History household members: children and other details: Lives with son, daughter in law. Smoking Status: Former smoker alcohol intake: never substance use type: does not use ROS ROS ED ROS Narrative Constitutional: Denies any headache, fevers, chills Eyes: Denies double vision Cardiovascular: Denies chest pain Respiratory: Denies shortness of breath Abdomen: Denies nausea vomit diarrhea : Denies urinary symptoms Neurological: Complained of left-sided weakness as noted above Musculoskeletal: Denies back pain Skin: Denies rashes or lesions EXAM Physical Exam Narrative Exam Narrative: General: Patient was lying in bed resting comfortably did not appear to be in acute distress Head: Atraumatic, normocephalic Eyes: PERRL bilaterally, EOMI bilaterally, no conjunctival injection noted Neck: Soft, supple, trachea midline Cardiovascular: Regular rate and rhythm Extremities: +4/5 strength in the bilateral upper and lower extremities Neurological: Patient follow commands knew that she was at [facility] years 2024 NIH of 0 GCS 15 Skin: Warm, dry, intact no rashes or lesions noted Const Vital Signs: 01/18/25 13:03 01/18/25 13:12 01/18/25 13:26 Temperature 97.8 F Temperature Source Oral Pulse Rate 73 69 Respiratory Rate 18 16 Blood Pressure 134/54 H 148/80 H Blood Pressure Mean 80 102 Pulse Ox 92 92 93 Oxygen Delivery Method Room Air Room Air Room Air 01/18/25 13:30 01/18/25 14:00 01/18/25 14:30 Temperature Temperature Source Pulse Rate 67 70 69 Respiratory Rate 14 18 15 Blood Pressure 161/75 H 124/65 H 148/76 H Blood Pressure Mean 103 84 100 Pulse Ox 93 98 93 Oxygen Delivery Method Room Air Room Air Room Air MDM MDM MDM Narrative Medical decision making narrative: Patient is a 69-year-old female who presents from upstairs as a stroke alert. On the differential diagnosis includes but not limited to ischemic stroke, hemorrhagic stroke, electrolyte abnormality, hypoglycemia. Once workup is obtained and reviewed she will be reevaluated. Patient is not a tenecteplase candidate as she recently received tenecteplase on 01/09/2025 and also her symptoms are improving here in the emergency department. CBC reviewed and showed no evidence of cytosis 12.7, it was 14.4, platelet count was noted to be 283. Patient INR 1.1, PT 13.9, sodium normal 139, Tessman normal 4.1. Patient's creatinine was elevated 1.80 which was elevated from 01/13/2025 at 1.29 she does have underlying chronic kidney disease troponin was noted be 19 EKG showed rate of 66 bpm with Excela junctional rhythm noted. Patient CT head brain without contrast reviewed showed no acute intracranial pathology. Patient CTA head and neck reviewed and showed no evidence of LVO. Patient was evaluated by teleneurology Dr. Morse who states the patient can continue workup here at the hospital therefore we will discuss case with hospitalist for admission. Discussed case with hospitalist Dr. Terrell who came down to evaluate the patient and feels like the patient is medically cleared given that she had a large stroke up just recently. Discussed this plan with family members at bedside and the patient they are agreeable and the patient will be discharged back to rehab. All question concerns answered she was given a liter of fluid as well. Critical care time 37 minutes Lab Data Labs: Laboratory Results - last 24 hr 01/18/25 13:00 WBC 10.7 RBC 4.60 Hgb 14.4 Hct 44.0 MCV 95.7 MCH 31.3 MCHC 32.7 RDW Std Deviation 46.1 H RDW Coeff of Michael 13.1 Plt Count 283 MPV 10.5 Immature Gran % (Auto) 0.400 Neut % (Auto) 60.1 Lymph % (Auto) 25.1 Ashley % (Auto) 10.5 H Eos % (Auto) 2.7 Baso % (Auto) 1.2 H Absolute Neuts (auto) 6.4 Absolute Lymphs (auto) 2.69 Nucleated RBC % 0 PT 13.9 INR 1.1 APTT 31.1 Sodium 139 Potassium 4.1 Chloride 99 Carbon Dioxide 30.7 Anion Gap 10 BUN 38 H Creatinine 1.80 H Estim Creat Clear Calc 39.28 L Est GFR (MDRD) Non-Af 30 L BUN/Creatinine Ratio 21.2 H Glucose 86 Calcium 9.2 Troponin T High Sens 19 H Radiography Diagnostic Testing: Clinical Impression(s) from Imaging Studies Brain CT 01/18/25 12:55 IMPRESSION: No acute intracranial pathology. Reading Location: [facility] Head/Neck CTA 01/18/25 12:56 IMPRESSION: No significant stenosis is identified in the carotid or vertebral system in the head or neck with no evidence of occlusion. [facility] Chest X-Ray 01/18/25 13:45 IMPRESSION: No Acute Findings. Reading Location: [facility] Discharge Plan Triage Chief Complaint: Stroke Alert ED Provider: Jarrett Peraza Dx/Rx/DC Orders Clinical Impression: Brain TIA, Type 2 diabetes mellitus with hyperglycemia, Essential (primary) hypertension, Hyperlipidemia, unspecified, CKD (chronic kidney disease) Prescriptions: No Action atorvastatin 40 mg tablet 40 mg PO DAILY atenolol 100 mg tablet 100 mg PO DAILY lisinopril 5 mg tablet 2.5 mg PO DAILY levothyroxine 137 mcg tablet 137 mcg PO DAILY CPAP - Continuous Positive Airway Pressure([facility] INFORMATIONAL USE ONLY) Patient Comments: Patient does not know if she uses CPAP or Bipap or settings Rx Instructions: As Directed acetaminophen 325 mg Tablet 650 mg PO Q6H PRN PRN (Reason: Pain 1-10 Or Fever>100.7) Qty: 0 0RF aspirin 81 mg Tablet,Delayed Release (Dr/Ec) 81 mg PO BREAKFAST Qty: 0 0RF Primary Care Provider: Philip England Referrals: Philip England MD [Primary Care Provider, Family Practice] Activity Restrictions/Additional Instructions: Follow-up your doctor in the outpatient setting. Return with worsening symptoms or other concerns. Take prescriptions as prescribed Print Language: Salvadorean Disposition Disposition: Home, Self Care
[2025-01-18 13:13] LABS: Hematocrit 44.0 % (37-47); Hemoglobin 14.4 g/dL (12.0-15.0); Immature Granulocytes Count 0.040 X10^3/uL (0.0-0.0); Mean Corp Hgb Conc 32.7 g/dL (32-36); Mean Corpuscular Volume 95.7 fL (81-99); Mean Platelet Vol. 10.5 fl (6.2-12.0); NRBC Flagged by Analyzer 0 % (0-5); Platelet Count 283 K/mm3 (150-450); RBC Distribution Width CV 13.1 % (11.6-14.6); RBC Distribution Width SD 46.1 fl (35.1-43.9); Red Blood Count 4.60 M/mm3 (4.2-5.4); White Blood Count 10.7 K/mm3 (4.4-11.0)
[2025-01-18 13:22] LABS: Prothrombin Time (Protime)PT. 13.9 SECONDS (11.7-14.9)
[2025-01-18 13:23] LABS: Partial Thromboplast Time 31.1 Seconds (24.1-36.2)
[2025-01-18 13:35] LABS: Troponin T High Sensitivity 19 ng/L (<=14)
[2025-01-18 13:42] LABS: Anion Gap 10 (5-15); BUN 38 mg/dL (4-19); BUN/Creat Ratio 21.2 RATIO (10-20); Calcium,Total 9.2 mg/dL (7.6-11.0); Carbon Dioxide 30.7 mmol/L (21.0-32.0); Chloride 99 mmol/L (98-108); Estimated Creatinine Clearance 39.28 ml/min (50-250); Glucose 86 mg/dL (70-99); Potassium 4.1 mmol/L (3.3-5.1)
--- NOTE | 2025-01-18 13:45 | RAD_ITS ---
PROCEDURE: RAD/Chest 1 View
[2025-01-18] MEDS: 0.9% Normal Saline (1000mL) 1,000 ML 100 ML IV (13:47)
--- NOTE | 2025-01-18 14:17 | CM.ED ---
Social Work Reason for visit: Stroke Alert SW received warm handoff from TCU SAUNDRA May, that patient was being transferred to ED for a stroke alert. SW introduced self and role with [facility]. Patient stated she was feeling much better. Family in room and supportive of patient. No further needs at this time. Stephanie Alaniz, POLE PEELING MACHINE OPERATOR HELPER, GRAVITY PROSPECTING OBSERVER
--- NOTE | 2025-01-18 15:01 | ED.RN ---
report called to TCU
== END 2025-01-18 15:50 | disposition home or self-care (01) ==
PROVIDERS: Emergency Provider Emergency Medicine; PCP Family Medicine; Visit Provider Emergency Medicine
DX: G45.9 Transient cerebral ischemic attack, unspecified (principal); E11.65 Type 2 diabetes mellitus with hyperglycemia; E11.22 Type 2 diabetes mellitus with diabetic chronic kidney disease; I12.9 Hypertensive chronic kidney disease with stage 1 through stage 4 chronic kidney disease, or unspecified chronic kidney disease; E78.5 Hyperlipidemia, unspecified; N18.9 Chronic kidney disease, unspecified; Z79.82 Long term (current) use of aspirin; Z79.899 Other long term (current) drug therapy; Z87.891 Personal history of nicotine dependence
CPT/HCPCS: 70450; 70496; 70498; 71045; 80048; 84484; 85025; 85610; 85730; 93005; 99285; Q9967; A4216

== ENCOUNTER → 2025-01-19 | Outpatient (CLI) | payer MEDICARE, SELFPAY | END | disposition home or self-care (01) | LOC: PSN 12:35 | PROVIDERS: PCP Family Medicine; Visit Provider Family Medicine Geriatric Medicine | DX: R40.4 Transient alteration of awareness (principal) | CPT/HCPCS: 95819 ==

== ENCOUNTER → 2025-01-19 | Outpatient (CLI) | payer MEDICARE, SELFPAY ==
--- NOTE | 2025-01-19 08:34 | MRI_ITS ---
PROCEDURE: MRI/Brain without Contrast
== END | disposition home or self-care (01) ==
PROVIDERS: PCP Family Medicine; Referring Provider Family Medicine Geriatric Medicine; Visit Provider Family Medicine Geriatric Medicine
DX: I63.9 Cerebral infarction, unspecified (principal)
CPT/HCPCS: 70551